=== PATIENT | male | born 1980 | race Caucasian/White ===

== ENCOUNTER 2017-04-04 07:27 | Inpatient (IN) | payer OTHER ==
[~2017-04-04] VITALS: Ht 182.9 cm; Wt 82.0 kg
[2017-04-04] VITALS (7 sets, daily range): BP systolic 112–126; BP diastolic 68–79; PULSE 53–63; RESP 16–22; TEMP 97–98.6; O2SAT 95–99
[~2017-04-04 07:27] MED LIST: BUDE3CAP5 PO; HYDR-3580 PO; MESA250 PO; NALT50 PO; PRED20 PO
[2017-04-04] MEDS ORDERED: IOHEXOL 350 MG/ML 10 ML VIAL (for RAD DIAG) IVCONTRAST ONE (07:28)
[2017-04-04] MEDS ORDERED: PRED20 PO (07:39)
[2017-04-04] MEDS ORDERED: ONDANSETRON HCL 4 MG/2 ML VIAL IVP ONE (08:30)
[2017-04-04] MEDS ORDERED: SODIUM CHLORIDE 0.9% FLUSH 10 ML FLUSH IV FLUSH PRN (08:30)
[2017-04-04] MEDS ORDERED: KETOROLAC TROMETHAMINE 30 MG/ML (IVP) VIAL IVP ONE (08:30)
[2017-04-04] MEDS ORDERED: SODIUM CHLOR 0.9% 1000 ML INJ 1,000 ML IV SCH (08:30)
[2017-04-04] MEDS ORDERED: MORPHINE SULFATE 4 MG/ML INJ IV PUSH ONE (08:30)
[2017-04-04 09:03] LABS: BASOPHIL % 0.4 % (0.0-2.0); EOSINOPHIL # 0.1 TH/MM3 (0-0.4); EOSINOPHIL % 1.3 % (0.0-4.0); HEMATOCRIT 42.7 % (39.0-51.0); HEMO FLAGS DIFF FINAL; LYMPH % 8.5 % (9.0-44.0); LYMPHOCYTE # 0.7 TH/MM3 (1.0-4.8); MEAN CELL VOLUME 87.7 FL (80.0-100.0); MEAN CORPUSCULAR HEMOGLOBIN 29.2 PG (27.0-34.0); MEAN CORPUSCULAR HGB CONC 33.2 % (32.0-36.0); MONO % 3.6 % (0.0-8.0); NEUT % 86.2 % (16.0-70.0); PLATELET COUNT 207 TH/MM3 (150-450); RED BLOOD COUNT 4.87 MIL/MM3 (4.50-5.90); WHITE BLOOD COUNT 8.1 TH/MM3 (4.0-11.0)
[2017-04-04] MEDS ORDERED: DIATRIZOATE MEGLUM/DIATRIZOATE SOD 9 ML CUP ONE (09:23)
[2017-04-04 09:30] LABS: ANION GAP 7 MEQ/L (5-15); AST (GOT) 12 U/L (15-37); BICARBONATE 25.9 MEQ/L (21.0-32.0); BLOOD UREA NITROGEN 19 MG/DL (7-18); CHLORIDE 105 MEQ/L (98-107); GLOMERULAR FILTRATION RATE 77 ML/MIN (>89); POTASSIUM 4.7 MEQ/L (3.5-5.1); SODIUM (NA) 138 MEQ/L (136-145)
[2017-04-04 09:31] LABS: ALT (GPT) 17 U/L (12-78)
[2017-04-04 09:33] LABS: ALKALINE PHOSPHATASE 70 U/L (45-117); TOTAL BILIRUBIN ADULT 0.5 MG/DL (0.2-1.0)
[2017-04-04 10:03] LABS: BLOOD, URINE NEG (NEG); GLUCOSE,URINE NEG (NEG); KETONE, URINE NEG (NEG); NITRITE,URINE NEG (NEG); URINE COLOR YELLOW (YELLW/STRAW)
[2017-04-04 10:06] LABS: COMMENT (UR) CULT NOT INDICATED; CULTURE IF INDICATED CULT NOT INDICATED
--- NOTE | 2017-04-04 11:44 | RADRPT ---
EXAM DATE/TIME: 04/04/2017 11:20 [place] COMPARISON: CT ABDOMEN & PELVIS W CONTRAST, December 09, 2011, 16:50. INDICATIONS : Abdominal pain . IV CONTRAST: 70 cc Omnipaque 350 (iohexol) IV ORAL CONTRAST: Partial prescribed oral contrast ingested. RADIATION DOSE: 7.10 CTDIvol (mGy) MEDICAL HISTORY : Crohn's disease. SURGICAL HISTORY : None. ENCOUNTER: Initial ACUITY: 2 days PAIN SCALE: 8/10 LOCATION: Umbilical TECHNIQUE: Volumetric scanning of the abdomen and pelvis was performed. Using automated exposure control and ad justment of the mA and/or kV according to patient size, radiation dose was kept as low as reasonably achievable to obtain optimal diagnostic quality images. DICOM format image data is available electro nically for review and comparison. FINDINGS: Liver, gallbladder, kidneys, spleen, pancreas, adrenal glands, stomach are unremarkable. The terminal ileum is markedly abnormal with marked circumferential bowel wall thickening extending over 6-7 cm. There is an abrupt changing caliber of the distal ileum on coronal image 36 with just proximal to the inflamed segment of bowel is a markedly dilated loop of ileum measuring up to 5-6 cm in maximal diam eter. Multiple dilated loops are seen proximal to this point. These findings would suggest a prominen t ileus versus partial small bowel obstruction. There is no free fluid. No adenopathy is seen. No fra ctures. Lung bases are clear. CONCLUSION: Abnormal 6-7 cm segment of distal small bowel at the level of the terminal ileum with marked bowel wa ll thickening and upstream bowel dilatation as above. This is consistent with a history of Crohn's d isease. Alexsander Wong MD on April 04, 2017 at 11:34 Board Certified Radiologist. This report was verified electronically.
[2017-04-04] MEDS ORDERED: methylPREDNISolone SOD SUCC 125 MG/2 ML VIAL IV PUSH ONE (12:00)
--- NOTE | 2017-04-04 12:35 | PD ---
HPI Chief Complaint: Abdominal Pain Time Seen by Provider: 07:45 Travel History International Travel<30 days: No Contact w/Intl Traveler<30days: No Traveled to known affect area: No History of Present Illness HPI 37-year-old male has history of Crohn's disease came in with history of abdominal pain on and off for past 2 weeks. Patient says that the first part of the first week his symptoms were frequent at which point he called the GI specialist Dr. Maxwell who prescribed him prednisone. However patient's symptoms subsided and hence he did not take the prednisone up until yesterday when his symptoms started again. He took the first dose of prednisone this morning but abdominal pain was severe and he decided to come to the emergency room. Patient says pain is colicky and sharp when it comes. It makes him double over and grab his stomach. No history of vomiting but patient has some loose frequent bowel movements. History of fever or chills. His vital signs are stable. As patient was talking to me he said his cramps came again and he grabbed his belly. [facility] Past Medical History Narrative Medical List of his past medical, surgical, social and family history reviewed from the nursing note. Depression: Yes Cancer: No Cardiovascular Problems: No Diabetes: No Diminished Hearing: No Endocrine: No Gastrointestinal Disorders: Yes (CROHNS) Glaucoma: No Genitourinary: No Hepatitis: No Hiatal Hernia: No Hypertension: No Musculoskeletal: No Neurologic: No Reproductive: No Respiratory: No Thyroid Disease: No Past Surgical History Other Surgery: Yes Social History Alcohol Use: Yes (RARELY) Tobacco Use: No Substance Use: No Allergies-Medications (Allergen,Severity, Reaction): Coded Allergies: No Known Allergies (Verified , 04/04/17) Comments No known drug allergies. Reported Meds & Prescriptions Reported Meds & Active Scripts Active Narrative Medication List of his home medications reviewed from the nursing note. Review of Systems Except as stated in HPI: all other systems reviewed are Neg Physical Exam Narrative GENERAL: Awake, alert, moderate distress SKIN: Focused skin assessment warm/dry. HEAD: Atraumatic. Normocephalic. EYES: Pupils equal and round. No scleral icterus. No injection or drainage. ENT: No nasal bleeding or discharge. Mucous membranes pink and moist. NECK: Trachea midline. No JVD. CARDIOVASCULAR: Regular rate and rhythm. No murmur appreciated. RESPIRATORY: No accessory muscle use. Clear to auscultation. Breath sounds equal bilaterally. GASTROINTESTINAL: Abdomen soft, generalized tenderness, nondistended. Hepatic and splenic margins not palpable. MUSCULOSKELETAL: No obvious deformities. No clubbing. No cyanosis. No edema. NEUROLOGICAL: Awake and alert. No obvious cranial nerve deficits. Motor grossly within normal limits. Normal speech. PSYCHIATRIC: Appropriate mood and affect; insight and judgment normal. Data Data Last Documented VS Vital Signs Date Time Temp Pulse Resp B/P (MAP) Pulse Ox O2 Delivery O2 Flow Rate FiO2 04/04/17 11:16 58 16 126/72 (90) 99 Room Air 04/04/17 07:30 98.6 Orders Orders Complete Blood Count With Diff (04/04/17 08:30) Comprehensive Metabolic Panel (04/04/17 08:30) Lipase (04/04/17 08:30) Urinalysis - C+S If Indicated (04/04/17 08:30) Ct Abd/Pel W Iv Contrast(Rout) (04/04/17 08:30) Iv Access Insert/Monitor (04/04/17 08:30) Ecg Monitoring (04/04/17 08:30) Oximetry (04/04/17 08:30) Morphine Inj (Morphine Inj) (04/04/17 08:30) Ondansetron Inj (Zofran Inj) (04/04/17 08:30) Sodium Chlor 0.9% 1000 Ml Inj (Ns 1000 M (04/04/17 08:30) Sodium Chloride 0.9% Flush (Ns Flush) (04/04/17 08:30) Ketorolac Inj (Toradol Inj) (04/04/17 08:30) Oral Contrast - Adult (04/04/17 08:37) Diatrizoate Liq ( Gastroview Liq) (04/04/17 09:23) Iohexol 350 Inj (Omnipaque 350 Inj) (04/04/17 07:28) Methylprednisolone So Succ Inj (Solumedr (04/04/17 12:00) Consult Gastroenterology (04/04/17 ) Admit Order (Ed Use Only) (04/04/17 12:19) Labs Laboratory Tests Test 04/04/17 08:20 04/04/17 09:45 White Blood Count 8.1 TH/MM3 Red Blood Count 4.87 MIL/MM3 Hemoglobin 14.2 GM/DL Hematocrit 42.7 % Mean Corpuscular Volume 87.7 FL Mean Corpuscular Hemoglobin 29.2 PG Mean Corpuscular Hemoglobin Concent 33.2 % Red Cell Distribution Width 13.0 % Platelet Count 207 TH/MM3 Mean Platelet Volume 9.0 FL Neutrophils (%) (Auto) 86.2 % Lymphocytes (%) (Auto) 8.5 % Monocytes (%) (Auto) 3.6 % Eosinophils (%) (Auto) 1.3 % Basophils (%) (Auto) 0.4 % Neutrophils # (Auto) 7.0 TH/MM3 Lymphocytes # (Auto) 0.7 TH/MM3 Monocytes # (Auto) 0.3 TH/MM3 Eosinophils # (Auto) 0.1 TH/MM3 Basophils # (Auto) 0.0 TH/MM3 CBC Comment DIFF FINAL Differential Comment Blood Urea Nitrogen 19 MG/DL Creatinine 1.09 MG/DL Random Glucose 96 MG/DL Total Protein 7.4 GM/DL Albumin 3.6 GM/DL Calcium Level 9.2 MG/DL Alkaline Phosphatase 70 U/L Aspartate Amino Transf (AST/SGOT) 12 U/L Alanine Aminotransferase (ALT/SGPT) 17 U/L Total Bilirubin 0.5 MG/DL Sodium Level 138 MEQ/L Potassium Level 4.7 MEQ/L Chloride Level 105 MEQ/L Carbon Dioxide Level 25.9 MEQ/L Anion Gap 7 MEQ/L Estimat Glomerular Filtration Rate 77 ML/MIN Lipase 357 U/L Urine Color YELLOW Urine Turbidity CLEAR Urine pH 6.0 Urine Specific [place] 1.024 Urine Protein NEG mg/dL Urine Glucose (UA) NEG mg/dL Urine Ketones NEG mg/dL Urine Occult Blood NEG Urine Nitrite NEG Urine Bilirubin NEG Urine Urobilinogen LESS THAN 2.0 MG/DL Urine Leukocyte Esterase NEG Urine WBC LESS THAN 1 /hpf Microscopic Urinalysis Comment CULT NOT INDICATED MDM Medical Decision Making Medical Screen Exam Complete: Yes Emergency Medical Condition: Yes Medical Record Reviewed: Yes Differential Diagnosis Acute Crohn's flareup, colitis, acute gastroenteritis Narrative Course 12 PM blood test results of back and within acceptable limits. However the CAT scan of his abdomen shows an inflamed and thickened bowel loop at the terminal ileum level. The bowel loop proximal to it is significantly distended. I discussed with the GI specialist Dr. Aparicio who is on and he agreed with a bolus dose of Solu-Medrol and admitting the patient. I discussed the case with the hospitalist was accepted the case. Patient was informed about his CAT scan result and the admission and he understands. Procedures EKG Prior to Arrival: No Physician Communication Physician Communication Dr. Aparicio, Dr. Warner Diagnosis Primary Impression: Crohn's disease involving terminal ileum Additional Impression: Partial bowel obstruction Admitting Information Admitting Physician Requests: Admit Scripts Prednisone (Prednisone) 20 Mg Tab 40 MG PO DAILY for crohn's flare, #40 TAB 0 Refills Prov: Anuradha Lugo 04/07/17 Dicyclomine (Dicyclomine) 20 Mg Tab 20 MG PO TID Y for CRAMPING PAIN, #30 TAB Prov: Anuradha Lugo 04/07/17 Alma King MD Apr 04, 2017 12:35
--- NOTE | 2017-04-04 13:42 | PD.CONS ---
HPI History of Present Illness This is a 37 year old male with a history of Crohns, diagnosed in January of 2012. He has been on asacol, pentasa, and entocort in the past, but reports that he traveled to see a homeopathic physician in [place] who did testing and identified foods that seemed to set his flares off. He has been following this diet and eating mostly home cooked meals except when he travels out of town and reports that he was in remission for three years. However, he has had multiple hospitalizations and ER visits this year for flares and reports that these usually occur after eating certain foods or after going out to eat. He was last seen in October of 2016 at [facility]. For the past 4 years he has only taking low dose naltrexone and steroid tapers when he has flares. At baseline, 2-3 bowel movements a day. He went out of town about 2 weeks ago and was eating out more than usual. He came back from [place] and was having intermittent abdominal pain. He woke up at 230 this morning with abdominal distention and was unable to get comfortable. This then transitioned into waves of pain- sharp/burning type pain that will last 10-15 seconds at a time and then go away and comes back shortly after. He has associated nausea without vomiting. He passed one stool this morning around 3:30am- formed with a small amount of blood when he wiped himself. His last EGD/Colonoscopy ()----> nodular mucosa in duodenal bulbbiopsy few small nodules and duodenum, biopsy. Gastritis in the antrum biopsy. Esophagitis in the distal esophagus/ Schatzki's ring, biopsy. Retroflex views revealed a small hiatal hernia. On the Colonoscopy (05/27/16)---> colon looked normal, some semisolid stool, mostly on right side, aggressive washing, terminal ileum intubated, ulcer clean base, stricture biopsies taken. Random biopsies from cecum, ascending, transverse, descending, sigmoid, rectum. Retroflexed views revealed internal grade 1 hemorrhoids. A digital rectal exam was done and revealed small internal hemorrhoids. He states that he does not want to go on medications for IBD and does not want antibiotics unless absolutely necessary. (rBinda Sexton [facility] Past Medical History Crohn's disease Past Surgical History Bilateral ACL repair EGD/Colonoscopy (Brinda Sexton) Coded Allergies: No Known Allergies (Verified , 04/04/17) Medications Allergies Coded Allergies Type Severity Reaction Last Updated Verified No Known Allergies 04/04/17 Yes Active Scripts Medications Dose Route/Sig Max Daily Dose Days Date Category Prednisone 20 Mg Tab 40 Mg PO DIRECTED 04/04/17 Reported Family History No family history of inflammatory bowl disease. Social History No smoke, rare etoh, medical marijuana (Brinda Sexton) Review of Systems Constitutional: COMPLAINS OF: Weight loss, DENIES: Fatigue Respiratory: DENIES: Cough Cardiovascular: DENIES: Chest pain Gastrointestinal: COMPLAINS OF: Abdominal pain, Nausea, DENIES: Black stools, Bloody stools, Constipation, Diarrhea, Vomiting, Swelling of Abdomen, Heartburn , Hematemesis Musculoskeletal: DENIES: Joint pain, Muscle aches, Back pain Hematologic/lymphatic: DENIES: Bruising Neurologic: DENIES: Headache Psychiatric: DENIES: Confusion (Brinda Sexton) GI Exam Vitals I&O Vital Signs Date Time Temp Pulse Resp B/P (MAP) Pulse Ox O2 Delivery O2 Flow Rate FiO2 04/04/17 11:16 58 16 126/72 (90) 99 Room Air 04/04/17 10:40 18 04/04/17 09:13 18 04/04/17 08:41 58 16 120/77 (91) 99 Room Air 04/04/17 07:30 98.6 63 22 124/79 (94) 95 Room Air I/O 04/03/17 04/03/17 04/03/17 04/04/17 04/04/17 04/04/17 07:00 15:00 23:00 07:00 15:00 23:00 Intake Total 1000 ml Balance 1000 ml Intake IV Total [address] Scan abdomen and pelvis with iv contrast (04/04/17)---> abnormal 6-7 segment of distal small bowel at the level of the terminal ileum with marked bowel wall thickening and upstream bowel dilatation as above. This is consistent with a history of Crohn's disease. Laboratory Test 04/04/17 08:20 04/04/17 09:45 White Blood Count 8.1 TH/MM3 Red Blood Count 4.87 MIL/MM3 Hemoglobin 14.2 GM/DL Hematocrit 42.7 % Mean Corpuscular Volume 87.7 FL Mean Corpuscular Hemoglobin 29.2 PG Mean Corpuscular Hemoglobin Concent 33.2 % Red Cell Distribution Width 13.0 % Platelet Count 207 TH/MM3 Mean Platelet Volume 9.0 FL Neutrophils (%) (Auto) 86.2 % Lymphocytes (%) (Auto) 8.5 % Monocytes (%) (Auto) 3.6 % Eosinophils (%) (Auto) 1.3 % Basophils (%) (Auto) 0.4 % Neutrophils # (Auto) 7.0 TH/MM3 Lymphocytes # (Auto) 0.7 TH/MM3 Monocytes # (Auto) 0.3 TH/MM3 Eosinophils # (Auto) 0.1 TH/MM3 Basophils # (Auto) 0.0 TH/MM3 CBC Comment DIFF FINAL Differential Comment Blood Urea Nitrogen 19 MG/DL Creatinine 1.09 MG/DL Random Glucose 96 MG/DL Total Protein 7.4 GM/DL Albumin 3.6 GM/DL Calcium Level 9.2 MG/DL Alkaline Phosphatase 70 U/L Aspartate Amino Transf (AST/SGOT) 12 U/L Alanine Aminotransferase (ALT/SGPT) 17 U/L Total Bilirubin 0.5 MG/DL Sodium Level 138 MEQ/L Potassium Level 4.7 MEQ/L Chloride Level 105 MEQ/L Carbon Dioxide Level 25.9 MEQ/L Anion Gap 7 MEQ/L Estimat Glomerular Filtration Rate 77 ML/MIN Lipase 357 U/L Urine Color YELLOW Urine Turbidity CLEAR Urine pH 6.0 Urine Specific [place] 1.024 Urine Protein NEG mg/dL Urine Glucose (UA) NEG mg/dL Urine Ketones NEG mg/dL Urine Occult Blood NEG Urine Nitrite NEG Urine Bilirubin NEG Urine Urobilinogen LESS THAN 2.0 MG/DL Urine Leukocyte Esterase NEG Urine WBC LESS THAN 1 /hpf Microscopic Urinalysis Comment CULT NOT INDICATED Physical Examination HEENT: Normocephalic; atraumatic; no jaundice. CHEST: CTA CARDIAC: RRR. ABDOMEN: Soft, nondistended, nontender; no hepatosplenomegaly; bowel sounds are present in all four quadrants. EXTREMITIES: No clubbing, cyanosis, or edema. SKIN: Normal; no rash; no jaundice. MACHINE SET UP TECHNICIAN: No focal deficits; alert and oriented times three. (Brinda Sexton) Assessment and Plan Plan ASSESSMENT: - Crohns Exacerbation. Dx 2011. He was initially on asacol, pentasa, and entocort, but has only been on low dose naltrexone and steroid tapers (when he had flares) for past 4 years. Flares seem to be aggravated by going out to eat/certain foods. He recently traveled to [place] and was eating out and came home and started having discomfort. Woke up with severe abdominal pain last night. No diarrhea. Small amount of blood when he wipes himself. Nausea, no vomiting. No fevers /chills. EGD/Colonoscopy (05/27/16)----> nodular mucosa in duodenal bulbbiopsy few small nodules and duodenum, biopsy. Gastritis in the antrum biopsy. Esophagitis in the distal esophagus/Schatzki's ring, biopsy. Retroflex views revealed a small hiatal hernia. On the Colonoscopy (05/27/16)---> colon looked normal, some semisolid stool, mostly on right side, aggressive washing, terminal ileum intubated, ulcer clean base , stricture biopsies taken. Random biopsies from cecum, ascending, transverse, descending, sigmoid, rectum. Retroflexed views revealed internal grade 1 hemorrhoids. A digital rectal exam was done and revealed small internal hemorrhoids. He states that he does not want to go on medications for IBD and does not want antibiotics unless absolutely necessary. CT Scan abdomen and pelvis with iv contrast (04/04/17)---> abnormal 6-7 segment of distal small bowel at the level of the terminal ileum with marked bowel wall thickening and upstream bowel dilatation as above. This is consistent with a history of Crohn's disease. He does not want to be started on any medications for Crohn's other than steroids, including antibiotics unless absolutely necessary. Clear liquids. Steroids. IVF. PLAN: - Clear liquids - Cont. Solumedrol - IVF - CBC, BMP in am - Stool studies - Pt does not want antibiotics - Pt soes not want other meds for IBD - Supportive care - Pt seen and examined by Dr. Aparicio and myself and this note is written on his behalf (Brinda Sexton) Physician Comments Seen and examined, plan as above. Conservative treatment for now for Crohn's exacerbation. Further recommendations to follow. (Joan Aparicio MD) Brinda Sexton Apr 04, 2017 13:42 Joan Aparicio MD Apr 04, 2017 16:00
--- NOTE | 2017-04-04 13:47 | HHI.HP ---
HPI Service [facility] Hospitalists Primary Care Physician Shelby Barajas MD (Vipin) Admission Diagnosis abdominal pain, Crohn's disease flareup, partial bowel obstruction Chief Complaint: Abdominal pain Travel History International Travel<30 Days: No Contact w/Intl Traveler <30 Da: No Traveled to Known Affected Are: No History of Present Illness Mr. De Leon is a pleasant 37 y/o WM with Crohn's disease. He was diagnosed in 2011. In the past he has been on Pentasa, Asacol and Entocort as well as prednisone at various times for his Crohn's but over the last 3 years has been controlling his symptoms with his diet and supplements and had been symptom free up until March 2016 he started having symptoms again. He feels that his diet is a big factor in controlling his symptoms. Pt was hospitalized in October 2016 at for Crohn's flare and was treated with steroids at that time with improvement. He reports that for the last few weeks he has had some intermittent abdominal pain and loose stools which has been waxing and waning. He has noted some bloody stools as well. Patient says that when his symptoms first began a few weeks ago he called the Dr. Maxwell's office who prescribed him prednisone. However patient's symptoms subsided and he did not take the prednisone. For the last 2-3 days he had been feeling well overall. Then around 2:30AM this morning he woke up with severe right sided abdominal pain and some intermittent nausea. He took the first dose of prednisone this morning but the abdominal pain was severe and he decided to come to the ED for further evaluation. In the ED CT scan of the abd/pelvis revealed an abnormal 6-7cm segment of distal small bowel at the level of the terminal ileum with marked bowel wall thickening and upstream bowel distension. Pt was given a dose of Solu -Medrol 125mg in the ED and some pain medication and his pain is controlled currently. Denies any fevers/chills, vomiting, melena, weight changes, chest pain, SOB or palpitations. Review of Systems Constitutional: DENIES: Fever, Chills Respiratory: DENIES: Cough, Shortness of breath Cardiovascular: DENIES: Chest pain, Palpitations, Lower Extremity Edema Gastrointestinal: COMPLAINS OF: Abdominal pain, Bloody stools, Diarrhea, Nausea , DENIES: Constipation, Vomiting Genitourinary: DENIES: Hematuria, Dysuria Musculoskeletal: DENIES: Back pain Integumentary: DENIES: Rash Neurologic: DENIES: Headache Psychiatric: DENIES: Confusion Past Family Social History Past Medical History Crohn's disease Past Surgical History EGD/Colonoscopy (09/09/11)-----> severe gastritis in the antrum and body with multiple small nasogastric tube trauma but very superficial, nodular mucosa in the duodenal bulb and some duodenitis in the first portion of the duodenum, rest of endoscopy normal, stool throughout the colon, but colon looked normal, terminal ileum multiple ulcerations suggesting terminal ileitis versus Crohn's disease. Pathology revealed peptic duodenitis, mild chronic gastritis, negative for Helicobacter, severe chronic active ileitis with features of ulceration, ileocecal valve with colonic mucosa with a prominent lymphoid nodule, right and left colonic mucosa with vascular congestion. Bilateral ACL repair Reported Medications Prednisone 40 Mg PO DIRECTED Allergies: Coded Allergies: No Known Allergies (Verified , 04/04/17) Family History No family hx of IBD or colon cancer Social History Denies any tobacco use Rare alcohol use Darlyn any illicit drug use Physical Exam Vital Signs Vital Signs Date Time Temp Pulse Resp B/P (MAP) Pulse Ox O2 Delivery O2 Flow Rate FiO2 04/04/17 11:16 58 16 126/72 (90) 99 Room Air 04/04/17 10:40 18 04/04/17 09:13 18 04/04/17 08:41 58 16 120/77 (91) 99 Room Air 04/04/17 07:30 98.6 63 22 124/79 (94) 95 Room Air Physical Exam GENERAL: This is a well-nourished, well-developed patient, in no apparent distress. HEENT: Atraumatic. Normocephalic. No temporal or scalp tenderness. No scleral icterus. Airway patent. NECK: Trachea midline, supple, nontender. CARDIO: Regular. RESP: CTA bilaterally. No wheezes, rales, or rhonchi. ABD: +BS, soft, non-tender, nondistended. No hepato-splenomegaly, or palpable masses. No guarding. EXT: Extremities without clubbing, cyanosis, or edema. NEURO: Awake and alert. Motor and sensory grossly within normal limits. Normal speech. Laboratory Laboratory Tests Test 04/04/17 08:20 04/04/17 09:45 White Blood Count 8.1 Red Blood Count 4.87 Hemoglobin 14.2 Hematocrit 42.7 Mean Corpuscular Volume 87.7 Mean Corpuscular Hemoglobin 29.2 Mean Corpuscular Hemoglobin Concent 33.2 Red Cell Distribution Width 13.0 Platelet Count 207 Mean Platelet Volume 9.0 Neutrophils (%) (Auto) 86.2 Lymphocytes (%) (Auto) 8.5 Monocytes (%) (Auto) 3.6 Eosinophils (%) (Auto) 1.3 Basophils (%) (Auto) 0.4 Neutrophils # (Auto) 7.0 Lymphocytes # (Auto) 0.7 Monocytes # (Auto) 0.3 Eosinophils # (Auto) 0.1 Basophils # (Auto) 0.0 CBC Comment DIFF FINAL Differential Comment Blood Urea Nitrogen 19 Creatinine 1.09 Random Glucose 96 Total Protein 7.4 Albumin 3.6 Calcium Level 9.2 Alkaline Phosphatase 70 Aspartate Amino Transf (AST/SGOT) 12 Alanine Aminotransferase (ALT/SGPT) 17 Total Bilirubin 0.5 Sodium Level 138 Potassium Level 4.7 Chloride Level 105 Carbon Dioxide Level 25.9 Anion Gap 7 Estimat Glomerular Filtration Rate 77 Lipase 357 Urine Color YELLOW Urine Turbidity CLEAR Urine pH 6.0 Urine Specific [place] 1.024 Urine Protein NEG Urine Glucose (UA) NEG Urine Ketones NEG Urine Occult Blood NEG Urine Nitrite NEG Urine Bilirubin NEG Urine Urobilinogen LESS THAN 2.0 Urine Leukocyte Esterase NEG Urine WBC LESS THAN 1 Microscopic Urinalysis Comment CULT NOT INDICATED Result Diagram: 04/04/17 0820 04/04/[address] Abd/pelvis (04/04/17): - Abnormal 6-7cm segment of distal small bowel at the level of the terminal ileum with marked bowel wall thickening and upstream bowel distension Septic Shock Reassessment Heart: Regular rate and rhythm Lungs: Clear Skin: Warm Caprini VTE Risk Assessment Caprini VTE Risk Assessment: No/Low Risk (score <= 1) Caprini Risk Assessment Model Point Value = 1 Point Value = 2 Point Value = 3 Point Value = 5 Age 41-60 Minor surgery BMI > 25 kg/m2 Swollen legs Varicose veins or History of unexplained or recurrent spontaneous Oral contraceptives or hormone replacement Sepsis (< 1 month) Serious lung disease, including pneumonia (< 1 month) Abnormal pulmonary function Acute myocardial infarction Congestive heart failure (< 1 month) History of inflammatory bowel disease Medical patient at bed rest Age 61-74 Arthroscopic surgery Major open surgery (> 45 min) Laparoscopic surgery (> 45 min) Malignancy Confined to bed (> 72 hours) Immobilizing plaster cast Central venous access Age >= 75 History of VTE Family history of VTE Factor V Leiden Prothrombin [id number] Lupus anticoagulant Anticardiolipin antibodies Elevated serum homocysteine Heparin-induced thrombocytopenia Other congenital or acquired thrombophilia Stroke (< 1 month) Elective arthroplasty Hip, pelvis, or leg fracture Acute spinal cord injury (< 1 month) Prophylaxis Regimen Total Risk Factor Score Risk Level Prophylaxis Regimen 0-1 Low Early ambulation 2 Moderate Order ONE of the following: *Sequential Compression Device (SCD) *Heparin 5000 units SQ BID 3-4 Higher Order ONE of the following medications: *Heparin 5000 units SQ TID *Enoxaparin/Lovenox 40 mg SQ daily (WT < 150 kg, CrCl > 30 mL/min) *Enoxaparin/Lovenox 30 mg SQ daily (WT < 150 kg, CrCl > 10-29 mL/min) *Enoxaparin/Lovenox 30 mg SQ BID (WT < 150 kg, CrCl > 30 mL/min) AND/OR *Sequential Compression Device (SCD) 5 or more Highest Order ONE of the following medications: *Heparin 5000 units SQ TID (Preferred with Epidurals) *Enoxaparin/Lovenox 40 mg SQ daily (WT < 150 kg, CrCl > 30 mL/min) *Enoxaparin/Lovenox 30 mg SQ daily (WT < 150 kg, CrCl > 10-29 mL/min) *Enoxaparin/Lovenox 30 mg SQ BID (WT < 150 kg, CrCl > 30 mL/min) AND *Sequential Compression Device (SCD) Assessment and Plan Problem List: (1) Crohn's disease involving terminal ileum ICD Codes: K50.90 - Crohn's disease, unspecified, without complications Status: Acute Plan: - Pt is a 37 y/o WM with Crohn's disease. He was diagnosed in 2011. In the past he has been on Pentasa, Asacol and Entocort as well as prednisone at various times for his Crohn's but over the last 3 years has been controlling his symptoms with his diet and supplements and had been symptom free up until March 2016 he started having symptoms again. - For the last few weeks he has had some intermittent abdominal pain and loose stools and some bloody stools as well. - Around 2:30AM on the day of admission he woke up with severe right sided abdominal pain and some intermittent nausea. - In the ED CT scan of the abd/pelvis revealed an abnormal 6-7cm segment of distal small bowel at the level of the terminal ileum with marked bowel wall thickening and upstream bowel distension. - Pt was given a dose of Solu-Medrol 125mg in the ED and some pain medication and his pain is controlled currently. - Cont. Solu-Medrol 60mg Q12H - Keep pt NPO for now as his CT scan appears to have evidence of ileus vs. partial SBO - KUB in AM - IVF - Pain control PRN - GI consultation - Supportive care - DVT prophylaxis with SCDs Physician Certification 2 Midnight Certification Type: Admission for Inpatient Services Order for Inpatient Services The services are ordered in accordance with Medicare regulations or non- Medicare payer requirements, as applicable. In the case of services not specified as inpatient-only, they are appropriately provided as inpatient services in accordance with the 2-midnight benchmark. Estimated LOS (days): 3 3 days is the estimated time the patient will need to remain in the hospital, assuming treatment plan goals are met and no additional complications. Post-Hospital Plan: Home Anuradha Lugo Apr 04, 2017 13:47
[2017-04-04] MEDS ORDERED: ONDANSETRON HCL 4 MG/2 ML VIAL IV PRN (14:15)
[2017-04-04] MEDS ORDERED: ACETAMINOPHEN 325 MG TAB PO PRN (14:15)
[2017-04-04] MEDS: SODIUM CHLOR 0.9% 1000 ML INJ 1,000 ML IV SCH (15:17)
--- NOTE | 2017-04-04 15:27 | RADRPT ---
EXAM DATE/TIME: 04/04/2017 14:53 [facility] COMPARISON: No previous studies available for comparison. INDICATIONS : Ileus. MEDICAL HISTORY : Crohn's disease. 5 years. SURGICAL HISTORY : None. ENCOUNTER: Initial ACUITY: 1 day PAIN SCORE: 5/10 LOCATION: Bilateral Abdomen FINDINGS: There is some contrast within dilated small bowel loops and a right lower quadrant narrowed loop of d istal bowel consistent area of abnormal duodenum on the CT scan. Contrast is present within the bilat eral intrarenal collecting systems and urinary bladder. Contrast has not yet passed into the colon. CONCLUSION: Abnormal dilated small bowel and inflammatory bowel wall thickening right lower quadrant. Alexsander Wong MD on April 04, 2017 at 15:24 Board Certified Radiologist. This report was verified electronically.
[2017-04-04] MEDS: MORPHINE SULFATE 4 MG/ML INJ IV PUSH PRN ×2 (16:38→19:16)
[2017-04-04] MEDS: methylPREDNISolone SOD SUCC 125 MG/2 ML VIAL IV PUSH SCH (18:42)
[2017-04-05] VITALS: BP 126/83; PULSE 64; RESP 17; TEMP 96; O2SAT 98
[2017-04-05] MEDS: SODIUM CHLOR 0.9% 1000 ML INJ 1,000 ML IV SCH ×3 (00:15→20:15)
[2017-04-05] MEDS: MORPHINE SULFATE 4 MG/ML INJ IV PUSH PRN ×2 (00:17→16:07)
[2017-04-05] MEDS: methylPREDNISolone SOD SUCC 125 MG/2 ML VIAL IV PUSH SCH ×2 (06:12→18:47)
[2017-04-05 06:42] LABS: AUTOMATED NEUTROPHIL # 4.4 TH/MM3 (1.8-7.7); BASOPHIL % 0.1 % (0.0-2.0); HEMATOCRIT 39.5 % (39.0-51.0); HEMO FLAGS DIFF FINAL; LYMPH % 16.1 % (9.0-44.0); LYMPHOCYTE # 0.9 TH/MM3 (1.0-4.8); MEAN CELL VOLUME 88.4 FL (80.0-100.0); MEAN CORPUSCULAR HEMOGLOBIN 29.2 PG (27.0-34.0); MONO % 8.5 % (0.0-8.0); NEUT % 75.3 % (16.0-70.0); PLATELET COUNT 180 TH/MM3 (150-450); RED BLOOD COUNT 4.47 MIL/MM3 (4.50-5.90); RED CELL DISTRIBUTION WIDTH 13.1 % (11.6-17.2); WHITE BLOOD COUNT 5.8 TH/MM3 (4.0-11.0)
[2017-04-05 07:08] LABS: BICARBONATE 26.6 MEQ/L (21.0-32.0); POTASSIUM 4.1 MEQ/L (3.5-5.1)
[2017-04-05 08:00] VITALS: BP 117/64; PULSE 59; RESP 17; TEMP 97.7; O2SAT 98
--- NOTE | 2017-04-05 10:41 | HHI.PR ---
Subjective Remarks Pt reports less abd pain today He is passing gas but no BM since admission Objective Vitals Vital Signs Date Time Temp Pulse Resp B/P (MAP) Pulse Ox O2 Delivery O2 Flow Rate FiO2 04/05/17 08:00 97.7 59 17 117/64 (81) 98 04/05/17 00:00 96.0 64 17 126/83 (97) 98 04/04/17 20:00 97.0 56 17 112/73 (86) 97 04/04/17 18:43 97.4 54 17 119/69 (86) 96 04/04/17 17:47 56 18 117/68 (84) 98 04/04/17 16:55 18 04/04/17 15:00 53 18 123/77 (92) 98 Room Air 04/04/17 11:16 58 16 126/72 (90) 99 Room Air Result Diagram: 04/05/17 0608 04/05/17 0608 Other Results Laboratory Tests Test 04/04/17 08:20 04/04/17 09:45 04/05/17 06:08 White Blood Count 8.1 TH/MM3 5.8 TH/MM3 Red Blood Count 4.87 MIL/MM3 4.47 MIL/MM3 Hemoglobin 14.2 GM/DL 13.0 GM/DL Hematocrit 42.7 % 39.5 % Mean Corpuscular Volume 87.7 FL 88.4 FL Mean Corpuscular Hemoglobin 29.2 PG 29.2 PG Mean Corpuscular Hemoglobin Concent 33.2 % 33.0 % Red Cell Distribution Width 13.0 % 13.1 % Platelet Count 207 TH/MM3 180 TH/MM3 Mean Platelet Volume 9.0 FL 9.7 FL Neutrophils (%) (Auto) 86.2 % 75.3 % Lymphocytes (%) (Auto) 8.5 % 16.1 % Monocytes (%) (Auto) 3.6 % 8.5 % Eosinophils (%) (Auto) 1.3 % 0.0 % Basophils (%) (Auto) 0.4 % 0.1 % Neutrophils # (Auto) 7.0 TH/MM3 4.4 TH/MM3 Lymphocytes # (Auto) 0.7 TH/MM3 0.9 TH/MM3 Monocytes # (Auto) 0.3 TH/MM3 0.5 TH/MM3 Eosinophils # (Auto) 0.1 TH/MM3 0.0 TH/MM3 Basophils # (Auto) 0.0 TH/MM3 0.0 TH/MM3 CBC Comment DIFF FINAL DIFF FINAL Differential Comment Blood Urea Nitrogen 19 MG/DL 17 MG/DL Creatinine 1.09 MG/DL 0.98 MG/DL Random Glucose 96 MG/DL 117 MG/DL Total Protein 7.4 GM/DL Albumin 3.6 GM/DL Calcium Level 9.2 MG/DL 8.3 MG/DL Alkaline Phosphatase 70 U/L Aspartate Amino Transf (AST/SGOT) 12 U/L Alanine Aminotransferase (ALT/SGPT) 17 U/L Total Bilirubin 0.5 MG/DL Sodium Level 138 MEQ/L 139 MEQ/L Potassium Level 4.7 MEQ/L 4.1 MEQ/L Chloride Level 105 MEQ/L 106 MEQ/L Carbon Dioxide Level 25.9 MEQ/L 26.6 MEQ/L Anion Gap 7 MEQ/L 6 MEQ/L Estimat Glomerular Filtration Rate 77 ML/MIN 87 ML/MIN Lipase 357 U/L Urine Color YELLOW Urine Turbidity CLEAR Urine pH 6.0 Urine Specific [place] 1.024 Urine Protein NEG mg/dL Urine Glucose (UA) NEG mg/dL Urine Ketones NEG mg/dL Urine Occult Blood NEG Urine Nitrite NEG Urine Bilirubin NEG Urine Urobilinogen LESS THAN 2.0 MG/DL Urine Leukocyte Esterase NEG Urine WBC LESS THAN 1 /hpf Microscopic Urinalysis Comment CULT NOT INDICATED Imaging CT Abd/pelvis (04/04/17): - Abnormal 6-7cm segment of distal small bowel at the level of the terminal ileum with marked bowel wall thickening and upstream bowel distension Objective Remarks General: NAD, AAOx3 Chest: CTA Cardiac: Regular Abd: +BS, soft ND/NT Ext: no edema A/P Problem List: (1) Crohn's disease involving terminal ileum ICD Codes: K50.90 - Crohn's disease, unspecified, without complications Status: Acute Plan: - Pt is a 37 y/o WM with Crohn's disease. He was diagnosed in 2011. In the past he has been on Pentasa, Asacol and Entocort as well as prednisone at various times for his Crohn's but over the last 3 years has been controlling his symptoms with his diet and supplements and had been symptom free up until March 2016 he started having symptoms again. - For the last few weeks he has had some intermittent abdominal pain and loose stools and some bloody stools as well. - Around 2:30AM on the day of admission he woke up with severe right sided abdominal pain and some intermittent nausea. - In the ED CT scan of the abd/pelvis revealed an abnormal 6-7cm segment of distal small bowel at the level of the terminal ileum with marked bowel wall thickening and upstream bowel distension. - Pt was given a dose of Solu-Medrol 125mg in the ED and some pain medication and his pain is controlled currently. - Cont. Solu-Medrol 60mg Q12H - Clear liquid diet - Stool studies ordered by GI - IVF - Pain control PRN - Supportive care - DVT prophylaxis with SCDs Assessment and Plan Patient examined. Assessment and plan formulated with Anuradha Lugo PA-C. I agree with the above. Crohn's flare/ileitis and probably partial sbo. improved with solumedrol. ivf.. prn pain control. GI following advance to liquids. Anuradha Lugo Apr 05, 2017 10:41 Anish Valdovinos MD Apr 05, 2017 12:05
[2017-04-05 12:00] VITALS: BP 125/58; PULSE 49; RESP 18; TEMP 97.2; O2SAT 97
[2017-04-05 16:00] VITALS: BP 135/75; PULSE 57; RESP 17; TEMP 97.9; O2SAT 98
--- NOTE | 2017-04-05 16:04 | HHI.GIFU ---
Subjective Remarks Pt OOB standing to relieve bloating. SAys overall there is improvement in discomfort but he is having some now. Had scant solid BM. Would like diet advanced, he cannot eat the clear liquid diet here b/c he is very strict with sugars and what he eats. (Traci Cummins) Objective Vitals I&O Vital Signs Date Time Temp Pulse Resp B/P (MAP) Pulse Ox O2 Delivery O2 Flow Rate FiO2 04/05/17 12:00 97.2 49 18 125/58 (80) 97 04/05/17 08:00 97.7 59 17 117/64 (81) 98 04/05/17 00:00 96.0 64 17 126/83 (97) 98 04/04/17 20:00 97.0 56 17 112/73 (86) 97 04/04/17 18:43 97.4 54 17 119/69 (86) 96 04/04/17 17:47 56 18 117/68 (84) 98 04/04/17 16:55 18 I/O 04/04/17 04/04/17 04/04/17 04/05/17 04/05/17 04/05/17 06:59 14:59 22:59 06:59 14:59 22:59 Intake Total 1000 ml 395 ml 400 ml Balance 1000 ml 395 ml 400 ml Intake Oral 0 ml 0 ml IV Total 1000 ml 395 ml 400 ml # Voids 1 2 Laboratory Laboratory Tests Test 04/05/17 06:08 White Blood Count 5.8 Red Blood Count 4.47 Hemoglobin 13.0 Hematocrit 39.5 Mean Corpuscular Volume 88.4 Mean Corpuscular Hemoglobin 29.2 Mean Corpuscular Hemoglobin Concent 33.0 Red Cell Distribution Width 13.1 Platelet Count 180 Mean Platelet Volume 9.7 Neutrophils (%) (Auto) 75.3 Lymphocytes (%) (Auto) 16.1 Monocytes (%) (Auto) 8.5 Eosinophils (%) (Auto) 0.0 Basophils (%) (Auto) 0.1 Neutrophils # (Auto) 4.4 Lymphocytes # (Auto) 0.9 Monocytes # (Auto) 0.5 Eosinophils # (Auto) 0.0 Basophils # (Auto) 0.0 CBC Comment DIFF FINAL Differential Comment Blood Urea Nitrogen 17 Creatinine 0.98 Random Glucose 117 Calcium Level 8.3 Sodium Level 139 Potassium Level 4.1 Chloride Level 106 Carbon Dioxide Level 26.6 Anion Gap 6 Estimat Glomerular Filtration Rate 87 Date/Time Source Procedure Growth Status 04/05/17 12:30 Stool Stool Cryptosporidium Exam Pending Received 04/05/17 12:30 Stool Stool Stool Pus ([facility]ILMA) Pending Received 04/05/17 12:30 Stool Stool Giardia Antigen ([facility]ILMA) Pending Received Imaging Last Impressions Abdomen/Pelvis CT 04/04/17 0830 Signed Impressions: Service Date/Time: Tuesday, April 04, 2017 11:20 - CONCLUSION: Abnormal 6-7 cm segment of distal small bowel at the level of the terminal ileum with marked bowel wall thickening and upstream bowel dilatation as above. This is consistent with a history of Crohn's disease. Alexsander Wong MD Abdomen X-Ray 04/04/17 0000 Signed Impressions: Service Date/Time: Tuesday, April 04, 2017 14:53 - CONCLUSION: Abnormal dilated small bowel and inflammatory bowel wall thickening right lower quadrant. Alexsander Wong MD Physical Exam HEENT: PERRL; normocephalic; atraumatic; no jaundice. CHEST: CTA CARDIAC: RRR ABDOMEN: Soft, mildly distended, mild diffuse TTP; no hepatosplenomegaly; bowel sounds are present in all four quadrants. EXTREMITIES: No clubbing, cyanosis, or edema. SKIN: Normal; no rash; no jaundice. 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 (Traci Cummins [facility]) Assessment and Plan Plan ASSESSMENT: - Crohns Exacerbation. Dx 2011. He was initially on asacol, pentasa, and entocort, but has only been on low dose naltrexone and steroid tapers (when he had flares) for past 4 years. Flares seem to be aggravated by going out to eat/certain foods. He recently traveled to [place] and was eating out and came home and started having discomfort. Woke up with severe abdominal pain. No diarrhea. Small amount of blood when he wipes himself. Nausea, no vomiting. No fevers /chills. EGD/Colonoscopy (05/27/16)----> nodular mucosa in duodenal bulbbiopsy few small nodules and duodenum, biopsy. Gastritis in the antrum biopsy. Esophagitis in the distal esophagus/Schatzki's ring, biopsy. Retroflex views revealed a small hiatal hernia. On the Colonoscopy (05/27/16)---> colon looked normal, some semisolid stool, mostly on right side, aggressive washing, terminal ileum intubated, ulcer clean base , stricture biopsies taken. Random biopsies from cecum, ascending, transverse, descending, sigmoid, rectum. Retroflexed views revealed internal grade 1 hemorrhoids. A digital rectal exam was done and revealed small internal hemorrhoids. He states that he does not want to go on medications for IBD and does not want antibiotics unless absolutely necessary. CT Scan abdomen and pelvis with iv contrast (04/04/17)---> abnormal 6-7 segment of distal small bowel at the level of the terminal ileum with marked bowel wall thickening and upstream bowel dilatation as above. This is consistent with a history of Crohn's disease. He does not want to be started on any medications for Crohn's other than steroids, including antibiotics unless absolutely necessary. will adv diet, pt wants to try is protein shakes; he is on clears but will only drink tea b/c he is selective about food ingredients. Steroids. IVF. PLAN: - full liquids - Cont. Solumedrol - await Stool studies - Pt does not want antibiotics - Pt soes not want other meds for IBD - Supportive care - Pt seen and examined by Dr. Aparicio and myself and this note is written on his behalf (Traci Cummins) Physician Comments Feeling much better than yesterday. Refusing other meds for Crohn's Will follow up with you. (Joan Aparicio MD) Traci Cummins Apr 05, 2017 16:04 Joan Aparicio MD Apr 05, 2017 16:11
[2017-04-05 20:00] VITALS: BP 117/65; PULSE 52; RESP 18; TEMP 97; O2SAT 97
[2017-04-06 00:39] VITALS: BP 103/57; PULSE 52; RESP 18; TEMP 97.8; O2SAT 98
[2017-04-06] MEDS: methylPREDNISolone SOD SUCC 125 MG/2 ML VIAL IV PUSH SCH ×2 (05:14→17:57)
[2017-04-06] MEDS: SODIUM CHLOR 0.9% 1000 ML INJ 1,000 ML IV SCH (06:15)
--- NOTE | 2017-04-06 07:30 | RADRPT ---
EXAM DATE/TIME: 04/06/2017 06:07 [facility] COMPARISON: CT ABDOMEN & PELVIS W CONTRAST, April 04, 2017, 11:20. ABDOMEN KUB ONLY, April 04, 2017, 14:53. INDICATIONS : Abdominal discomfort, evaluate ileus MEDICAL HISTORY : Crohns disease SURGICAL HISTORY : None. ENCOUNTER: Subsequent ACUITY: 2 days PAIN SCORE: 2/10 LOCATION: Bilateral abdomen FINDINGS: Water-soluble contrast is noted throughout the colon from prior CT scan of the abdomen. Colon appears normal and there are no visualized abnormal loops of small bowel. No significant face calcifications . Abnormality seen on prior radiograph is absent CONCLUSION: Benign abdomen Darren Klein MD on April 06, 2017 at 7:27 Board Certified Radiologist. This report was verified electronically.
[2017-04-06 08:00] VITALS: BP 125/67; PULSE 56; RESP 17; TEMP 97.6; O2SAT 98
[2017-04-06 08:32] VITALS: BP 115/70; PULSE 50; RESP 17; TEMP 96.9; O2SAT 97
[2017-04-06 11:30] VITALS: BP 115/67; PULSE 60; RESP 14; TEMP 98; O2SAT 99
[2017-04-06] MEDS: MORPHINE SULFATE 4 MG/ML INJ IV PUSH PRN (12:33)
--- NOTE | 2017-04-06 12:50 | HHI.GIFU ---
Subjective Remarks Resting in bed. He was feeling good this morning and his diet was advanced. However, he reports that after eating applesauce, he started having significant abdominal cramping and bloating. 2 very small bowel movements- liquid a few days. No bleeding. (Brinda Sexton [facility]) Objective Vitals I&O Vital Signs Date Time Temp Pulse Resp B/P (MAP) Pulse Ox O2 Delivery O2 Flow Rate FiO2 04/06/17 11:30 98.0 60 14 115/67 (83) 99 04/06/17 08:32 96.9 50 17 115/70 (85) 97 04/06/17 08:00 97.6 56 17 125/67 (86) 98 04/06/17 00:39 97.8 52 18 103/57 (72) 98 04/05/17 20:00 97.0 52 18 117/65 (82) 97 04/05/17 16:00 97.9 57 17 135/75 (95) 98 I/O 04/05/17 04/05/17 04/05/17 04/06/17 04/06/17 04/06/17 07:00 15:00 23:00 07:00 15:00 23:00 Intake Total 400 ml 1080 ml 360 ml Balance 400 ml 1080 ml 360 ml Intake Oral 0 ml 1080 ml 360 ml IV Total 400 ml # Voids 2 8 2 # Bowel Movements 1 Laboratory Date/Time Source Procedure Growth Status 04/05/17 12:30 Stool Stool Cryptosporidium Exam Pending Resulted 04/05/17 12:30 Stool Stool Stool Pus ([facility]) - Final FEW WBC'S Resulted 04/05/17 12:30 Stool Stool Giardia Antigen ([facility]) Pending Resulted Imaging Last Impressions Abdomen X-Ray 04/06/17 0600 Signed Impressions: Service Date/Time: March 06:07 - CONCLUSION: Benign abdomen Darren Klein MD Abdomen/Pelvis CT 04/04/17 0830 Signed Impressions: Service Date/Time: Tuesday, April 04, 2017 11:20 - CONCLUSION: Abnormal 6-7 cm segment of distal small bowel at the level of the terminal ileum with marked bowel wall thickening and upstream bowel dilatation as above. This is consistent with a history of Crohn's disease. Alexsander Wong MD Physical Exam HEENT: Normocephalic; atraumatic; no jaundice. CHEST: CTA CARDIAC: RRR ABDOMEN: Soft, nondistended, mild midabdominal tenderness; no hepatosplenomegaly; bowel sounds are present in all four quadrants. EXTREMITIES: No clubbing, cyanosis, or edema. SKIN: Normal; no rash; no jaundice. 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 (Brinda Sexton [facility]) Assessment and Plan Plan ASSESSMENT: - Crohns Exacerbation. Dx 2012. He was initially on asacol, pentasa, and entocort, but has only been on low dose naltrexone and steroid tapers (when he had flares) for past 4 years. Flares seem to be aggravated by going out to eat/certain foods. He recently traveled to [place] and was eating out and came home and started having discomfort. Woke up with severe abdominal pain. No diarrhea. Small amount of blood when he wipes himself. Nausea, no vomiting. No fevers /chills. EGD/Colonoscopy (05/27/16)----> nodular mucosa in duodenal bulbbiopsy few small nodules and duodenum, biopsy. Gastritis in the antrum biopsy. Esophagitis in the distal esophagus/Schatzki's ring, biopsy. Retroflex views revealed a small hiatal hernia. On the Colonoscopy (05/27/16)---> colon looked normal, some semisolid stool, mostly on right side, aggressive washing, terminal ileum intubated, ulcer clean base , stricture biopsies taken. Random biopsies from cecum, ascending, transverse, descending, sigmoid, rectum. Retroflexed views revealed internal grade 1 hemorrhoids. A digital rectal exam was done and revealed small internal hemorrhoids. He states that he does not want to go on medications for IBD and does not want antibiotics unless absolutely necessary. CT Scan abdomen and pelvis with iv contrast (04/04/17)---> abnormal 6-7 segment of distal small bowel at the level of the terminal ileum with marked bowel wall thickening and upstream bowel dilatation as above. This is consistent with a history of Crohn's disease. He does not want to be started on any medications for Crohn's other than steroids, including antibiotics unless absolutely necessary. He was doing well and his diet was advanced earlier today. He states that after trying apple sauce today, he had worsening abdominal pain and bloating. He has had 2 small liquid stools no blood during this admission. Stools studies pending. Solumedrol. Probiotic. PLAN: - DESIREE - Add Dicyclomine - Cont. Solumedrol today - Await Stool studies - Pt does not want antibiotics - Pt does not want other meds for IBD - Supportive care - Pt seen and examined by Dr. Aparicio and myself and this note is written on his behalf (Brinda Sexton) Physician Comments Seen and examined, agree with the assessment and plan as above. Further recommendations to follow. (Joan Aparicio MD) Brinda Sexton Apr 06, 2017 12:50 Joan Aparicio MD Apr 06, 2017 13:33
[2017-04-06] MEDS ORDERED: DICYCLOMINE HCL 20 MG TAB PO PRN (13:00)
--- NOTE | 2017-04-06 13:17 | HHI.PR ---
Subjective Remarks Pt advanced to soft diet today and initially felt well but then developed abdominal pain Afebrile No N/V Objective Vitals Vital Signs Date Time Temp Pulse Resp B/P (MAP) Pulse Ox O2 Delivery O2 Flow Rate FiO2 04/06/17 11:30 98.0 60 14 115/67 (83) 99 04/06/17 08:32 96.9 50 17 115/70 (85) 97 04/06/17 08:00 97.6 56 17 125/67 (86) 98 04/06/17 00:39 97.8 52 18 103/57 (72) 98 04/05/17 20:00 97.0 52 18 117/65 (82) 97 04/05/17 16:00 97.9 57 17 135/75 (95) 98 Result Diagram: 04/05/17 0608 04/05/17 0608 Other Results Laboratory Tests Test 04/05/17 06:08 White Blood Count 5.8 TH/MM3 Red Blood Count 4.47 MIL/MM3 Hemoglobin 13.0 GM/DL Hematocrit 39.5 % Mean Corpuscular Volume 88.4 FL Mean Corpuscular Hemoglobin 29.2 PG Mean Corpuscular Hemoglobin Concent 33.0 % Red Cell Distribution Width 13.1 % Platelet Count 180 TH/MM3 Mean Platelet Volume 9.7 FL Neutrophils (%) (Auto) 75.3 % Lymphocytes (%) (Auto) 16.1 % Monocytes (%) (Auto) 8.5 % Eosinophils (%) (Auto) 0.0 % Basophils (%) (Auto) 0.1 % Neutrophils # (Auto) 4.4 TH/MM3 Lymphocytes # (Auto) 0.9 TH/MM3 Monocytes # (Auto) 0.5 TH/MM3 Eosinophils # (Auto) 0.0 TH/MM3 Basophils # (Auto) 0.0 TH/MM3 CBC Comment DIFF FINAL Differential Comment Blood Urea Nitrogen 17 MG/DL Creatinine 0.98 MG/DL Random Glucose 117 MG/DL Calcium Level 8.3 MG/DL Sodium Level 139 MEQ/L Potassium Level 4.1 MEQ/L Chloride Level 106 MEQ/L Carbon Dioxide Level 26.6 MEQ/L Anion Gap 6 MEQ/L Estimat Glomerular Filtration Rate 87 ML/MIN Imaging CT Abd/pelvis (04/04/17): - Abnormal 6-7cm segment of distal small bowel at the level of the terminal ileum with marked bowel wall thickening and upstream bowel distension Objective Remarks General: NAD, AAOx3 Chest: CTA Cardiac: Regular Abd: +BS, soft ND/NT Ext: no edema A/P Problem List: (1) Crohn's disease involving terminal ileum ICD Codes: K50.90 - Crohn's disease, unspecified, without complications Status: Acute Plan: - Pt is a 37 y/o WM with Crohn's disease. He was diagnosed in 2011. In the past he has been on Pentasa, Asacol and Entocort as well as prednisone at various times for his Crohn's but over the last 3 years has been controlling his symptoms with his diet and supplements and had been symptom free up until March 2016 he started having symptoms again. - For the last few weeks he has had some intermittent abdominal pain and loose stools and some bloody stools as well. - Around 2:30AM on the day of admission he woke up with severe right sided abdominal pain and some intermittent nausea. - In the ED CT scan of the abd/pelvis revealed an abnormal 6-7cm segment of distal small bowel at the level of the terminal ileum with marked bowel wall thickening and upstream bowel distension. - Pt was given a dose of Solu-Medrol 125mg in the ED and some pain medication and his pain is controlled currently. - Cont. Solu-Medrol 60mg Q12H consider changing to oral steroids tomorrow - Pt had some discomfort with soft diet today - Stool studies pending - Pain control PRN - Supportive care - Anticipate discharge home tomorrow if pain is controlled on soft diet - DVT prophylaxis with SCDs Assessment and Plan Patient examined. Assessment and plan formulated with Anuradha Lugo PA-C. I agree with the above. crohns exacerbation. cont solumedrol and convert to prednisone at time of d/c. will need close GI f/u. advancing diet slowly. Anuradha Lugo Apr 06, 2017 13:17 Anish Valdovinos MD Apr 06, 2017 13:33
[2017-04-06 16:00] VITALS: BP 111/75; PULSE 45; RESP 18; TEMP 97.7; O2SAT 99
[2017-04-06 20:40] VITALS: BP 116/64; PULSE 51; RESP 18; TEMP 98.4; O2SAT 99
[2017-04-07] VITALS: BP 122/62; PULSE 50; RESP 18; TEMP 98.4; O2SAT 98
[2017-04-07] MEDS: methylPREDNISolone SOD SUCC 125 MG/2 ML VIAL IV PUSH SCH (04:59)
[2017-04-07 08:10] VITALS: BP 110/64; PULSE 44; RESP 14; TEMP 98.1; O2SAT 99
[2017-04-07] MEDS ORDERED: DICY20TA10 PO (11:16)
[2017-04-07] MEDS ORDERED: PRED20 PO (11:16)
--- NOTE | 2017-04-07 11:19 | HHI.DCPOC ---
Discharge Care Plan Diagnosis: (1) Crohn's disease involving terminal ileum (2) Partial bowel obstruction Goals to Promote Your Health * To prevent worsening of your condition and complications * To maintain your health at the optimal level - Followup with Dr. Maxwell in 10 days, call for an appt - Continue taking Prednisone 40mg daily until seen by Dr. Maxwell who can recommend tapering instructions at that time. - Followup with your PCP, Dr. Barajas, in 1 week, call for an appt. Directions to Meet Your Goals Take your medications as prescribed Follow your dietary instruction Follow activity as directed Keep your appointments as scheduled Take your immunizations and boosters as scheduled If your symptoms worsen call your PCP, if no PCP go to Urgent Care Center or Emergency Room Smoking is Dangerous to Your Health. Avoid second hand smoke Call the 24-hour hour crisis hotline for domestic abuse at Anuradha Lugo Apr 07, 2017 11:19
[2017-04-07 11:40] VITALS: BP 117/64; PULSE 60; RESP 14; TEMP 98
[2017-04-07] MEDS ORDERED: predniSONE 20 MG TAB PO SCH (13:00)
--- NOTE | 2017-04-07 13:43 | HHI.DS ---
Discharge Summary Admission Date Apr 04, 2017 at 12:20 Discharge Date: Apr 07, 2017 Admitting Diagnosis abdominal pain, Crohn's disease flareup, partial bowel obstruction (1) Crohn's disease involving terminal ileum Diagnosis: Principal ICD Codes: K50.90 - Crohn's disease, unspecified, without complications Status: Acute Brief History Mr. De Leon is a pleasant 37 y/o WM with Crohn's disease. He was diagnosed in 2011. In the past he has been on Pentasa, Asacol and Entocort as well as prednisone at various times for his Crohn's but over the last 3 years has been controlling his symptoms with his diet and supplements and had been symptom free up until March 2016 he started having symptoms again. He feels that his diet is a big factor in controlling his symptoms. Pt was hospitalized in October 2016 at for Crohn's flare and was treated with steroids at that time with improvement. He reports that for the last few weeks he has had some intermittent abdominal pain and loose stools which has been waxing and waning. He has noted some bloody stools as well. Patient says that when his symptoms first began a few weeks ago he called the Dr. Maxwell's office who prescribed him prednisone. However patient's symptoms subsided and he did not take the prednisone. For the last 2-3 days he had been feeling well overall. Then around 2:30AM this morning he woke up with severe right sided abdominal pain and some intermittent nausea. He took the first dose of prednisone this morning but the abdominal pain was severe and he decided to come to the ED for further evaluation. In the ED CT scan of the abd/pelvis revealed an abnormal 6-7cm segment of distal small bowel at the level of the terminal ileum with marked bowel wall thickening and upstream bowel distension. Pt was given a dose of Solu -Medrol 125mg in the ED and some pain medication and his pain is controlled currently. Denies any fevers/chills, vomiting, melena, weight changes, chest pain, SOB or palpitations. CBC/BMP: 04/05/17 0608 04/05/17 0608 Significant Findings Laboratory Tests Test 04/05/17 06:08 Red Blood Count 4.47 MIL/MM3 (4.50-5.90) Neutrophils (%) (Auto) 75.3 % (16.0-70.0) Monocytes (%) (Auto) 8.5 % (0.0-8.0) Lymphocytes # (Auto) 0.9 TH/MM3 (1.0-4.8) Random Glucose 117 MG/DL (74-106) Calcium Level 8.3 MG/DL (8.5-10.1) Estimat Glomerular Filtration Rate 87 ML/MIN (>89) PE at Discharge General: NAD, AAOx3 Chest: CTA Cardiac: Regular Abd: +BS, soft ND/NT Ext: no edema Hospital Course (1) Crohn's disease involving terminal ileum - Pt is a 37 y/o WM with Crohn's disease. He was diagnosed in 2011. In the past he has been on Pentasa, Asacol and Entocort as well as prednisone at various times for his Crohn's but over the last 3 years has been controlling his symptoms with his diet and supplements and had been symptom free up until March 2016 he started having symptoms again. - For the last few weeks he has had some intermittent abdominal pain and loose stools and some bloody stools as well. - Around 2:30AM on the day of admission he woke up with severe right sided abdominal pain and some intermittent nausea. - In the ED CT scan of the abd/pelvis revealed an abnormal 6-7cm segment of distal small bowel at the level of the terminal ileum with marked bowel wall thickening and upstream bowel distension. - Pt was given a dose of Solu-Medrol 125mg in the ED and some pain medication and his pain is controlled currently. - Solu-Medrol 60mg Q12H - now tolerating soft diet. - convert steroids to prednisone 40mg daily and pt understands to continue 40mg daily until f/u with Dr Maxwell in next 7-10 days and then taper per Dr Maxwell orders. Pt Condition on Discharge: Stable Discharge Disposition: Discharge Home Discharge Instructions DIET: Follow Instructions for: Low Residue Diet Activities you can perform: Regular-No Restrictions Follow up Referrals: Gastroenterology - 10 Days with Purnima Maxwell MD PCP Follow-up - [address] Rubio Barajas New Medications: Prednisone (Prednisone) 20 Mg Tab 40 MG PO DAILY for crohn's flare, #40 TAB 0 Refills Dicyclomine (Dicyclomine) 20 Mg Tab 20 MG PO TID PRN for CRAMPING PAIN, #30 TAB Discontinued Medications: Prednisone (Prednisone) 20 Mg Tab 40 MG PO DIRECTED, TAB 0 Refills Anish Valdovinos MD Apr 07, 2017 13:43
== END 2017-04-07 12:28 | disposition home or self-care (01) | DRG 386 ==
LOC: NEPE 07:27 → NEDA 12:20 → N07A 18:36
PROVIDERS: ADMIT Hospitalist; ATTEND Hospitalist
DX: K50.00 Crohn's disease of small intestine without complications (principal); K56.60 Unspecified intestinal obstruction
CPT/HCPCS: 74000; 74177; 80048; 80053; 81001; 83690; 85025; 87205; 87328; 87329; 87506; 96361; 96374; 96375; J1885; J2270; J2405; J2930; J7030; Q9963; Q9967

== ENCOUNTER 2017-04-14 13:04 | Inpatient (IN) | payer OTHER ==
[~2017-04-14] VITALS: Ht 182.9 cm; Wt 80.0 kg
[~2017-04-14 13:04] MED LIST changes: -BUDE3CAP5 PO; +DICY20TA10 PO; -HYDR-3580 PO; -MESA250 PO; -NALT50 PO
[2017-04-14 21:21] VITALS: BP 116/65; PULSE 53; RESP 17; TEMP 98.1; O2SAT 95
[2017-04-14] MEDS ORDERED: prednisone PO (22:07)
[2017-04-14] MEDS: SODIUM CHLOR 0.9% 1000 ML INJ 1,000 ML IV SCH (22:30)
[2017-04-14 23:43] VITALS: BP 114/70; PULSE 43; RESP 18; TEMP 98; O2SAT 95
[2017-04-15 04:34] VITALS: BP 114/59; PULSE 44; RESP 17; TEMP 98.2; O2SAT 96
[2017-04-15 08:55] LABS: BASOPHIL % 0.1 % (0.0-2.0); EOSINOPHIL # 0.1 TH/MM3 (0-0.4); EOSINOPHIL % 0.7 % (0.0-4.0); HEMATOCRIT 41.9 % (39.0-51.0); HEMO FLAGS DIFF FINAL; LYMPH % 30.8 % (9.0-44.0); LYMPHOCYTE # 2.1 TH/MM3 (1.0-4.8); MEAN CORPUSCULAR HEMOGLOBIN 29.4 PG (27.0-34.0); MEAN CORPUSCULAR HGB CONC 33.4 % (32.0-36.0); MONO % 10.5 % (0.0-8.0); NEUT % 57.9 % (16.0-70.0); PLATELET COUNT 180 TH/MM3 (150-450); RED BLOOD COUNT 4.76 MIL/MM3 (4.50-5.90); WHITE BLOOD COUNT 6.9 TH/MM3 (4.0-11.0)
[2017-04-15] MEDS ORDERED: methylPREDNISolone SOD SUCC 125 MG/2 ML VIAL IV PUSH SCH (09:00)
[2017-04-15] MEDS: SODIUM CHLOR 0.9% 1000 ML INJ 1,000 ML IV SCH ×3 (09:11→17:53)
[2017-04-15 09:15] LABS: ANION GAP 7 MEQ/L (5-15); AST (GOT) 10 U/L (15-37); BICARBONATE 28.9 MEQ/L (21.0-32.0); BLOOD UREA NITROGEN 14 MG/DL (7-18); CHLORIDE 104 MEQ/L (98-107); GLOMERULAR FILTRATION RATE 74 ML/MIN (>89); POTASSIUM 3.7 MEQ/L (3.5-5.1); SODIUM (NA) 140 MEQ/L (136-145)
[2017-04-15 09:17] LABS: ALT (GPT) 24 U/L (12-78)
[2017-04-15 09:20] LABS: ALKALINE PHOSPHATASE 67 U/L (45-117); TOTAL BILIRUBIN ADULT 0.5 MG/DL (0.2-1.0)
[2017-04-15] MEDS ORDERED: SODIUM CHLORIDE 0.9% FLUSH 10 ML FLUSH IV FLUSH PRN (09:45)
[2017-04-15] MEDS ORDERED: ONDANSETRON HCL 4 MG/2 ML VIAL IVP PRN (09:45)
[2017-04-15] MEDS ORDERED: MAGNESIUM HYDROXIDE SUSP 30 ML CUP PO PRN (09:45)
[2017-04-15] MEDS ORDERED: ACETAMINOPHEN 325 MG TAB PO PRN (09:45)
[2017-04-15] MEDS ORDERED: TEMAZEPAM 15 MG CAP PO PRN (09:45)
[2017-04-15] MEDS ORDERED: NALOXONE HCL 0.4 MG/ML AMP IV PRN (09:45)
[2017-04-15] MEDS ORDERED: PNEUMOCOCCAL POLYVALENT INJ 25 MCG/0.5 ML SYR IM ONE (10:00)
[2017-04-15] MEDS ORDERED: INFLUENZA VIRUS VACCINE (QUADRIVALENT) 0.5 ML SYR IM ONE (10:00)
--- NOTE | 2017-04-15 10:05 | HHI.HP ---
HPI Service [facility] Hospital[facility] Primary Care Physician Shelby Barajas MD ([facility]) Admission Diagnosis Chief Complaint: Abdominal pain Crohn's disease Travel History International Travel<30 Days: No Contact w/Intl Traveler <30 Da: No Traveled to Known Affected Are: No History of Present Illness Mr. De Leon is a pleasant 37 y/o WM with Crohn's disease. He was diagnosed in 2011. In the past he has been on Pentasa, Asacol and Entocort as well as prednisone at various times for his Crohn's but over the last 3 years has been controlling his symptoms with his diet and supplements and had been symptom free up until March 2016 he started having symptoms again. He feels that his diet is a big factor in controlling his symptoms. Pt was hospitalized in October 2016 at for Crohn's flare and was treated with steroids at that time with improvement. Pt was readmitted at [place] 04/04 - 04/07. Pt had recurred abdominal pain with loose and bloody stools. CT scan of the abd/ pelvis (04/04/17) revealed an abnormal 6-7cm segment of distal small bowel at the level of the terminal ileum with marked bowel wall thickening and upstream bowel distension. Pt was treated with IV solumedrol then converted to PO prednisone. Yesterday (04/14/17) pt contacted Dr. Maxwell's office with c/o recurrent abdominal pain despite PO prednisone. Direct admission requested. Pt admitted to the medical service. Pt was started on IV fluids and IV steroids. Consult placed to Gastroenterology. Review of Systems Constitutional: DENIES: Diaphoretic episodes, Fatigue, Fever, Weight gain, Weight loss, Chills, Dizziness, Change in appetite, Night Sweats Endocrine: DENIES: Heat/cold intolerance, Polydipsia, Polyuria, Polyphagia Eyes: DENIES: Blurred vision, Diplopia, Eye inflammation, Eye pain, Vision loss , Photosensitivity, Double Vision Ears, nose, mouth, throat: DENIES: Tinnitus, Hearing loss, Vertigo, Nasal discharge, Oral lesions, Throat pain, Hoarseness, Ear Pain, Running Nose, Epistaxis, Sinus Pain, Toothache, Odynophagia Respiratory: DENIES: Apneas, Cough, Snoring, Wheezing, Hemoptysis, Sputum production, Shortness of breath Cardiovascular: DENIES: Chest pain, Palpitations, Syncope, Dyspnea on Exertion , PND, Lower Extremity Edema, Orthopnea, Claudication Gastrointestinal: COMPLAINS OF: Abdominal pain, See HPI, DENIES: Black stools, Bloody stools, BRB per rectum, Constipation, Diarrhea, GERD, Nausea, Reflux, Vomiting, Difficulty Swallowing, Anorexia Genitourinary: DENIES: Urinary frequency, Urinary incontinence, Urgency, Hematuria, Dysuria, Nocturia Musculoskeletal: DENIES: Joint pain, Muscle aches, Stiffness, Joint Swelling, Back pain, Neck pain Integumentary: DENIES: Abnormal pigmentation, Nail changes, Pruritus, Rash Hematologic/lymphatic: DENIES: Bruising, Lymphadenopathy Immunologic/allergic: DENIES: Eczema, Urticaria Neurologic: DENIES: Abnormal gait, Headache, Localized weakness, Paresthesias, Seizures, Speech Problems, Tremor, Poor Balance Psychiatric: DENIES: Anxiety, Confusion, Mood changes, Depression, Hallucinations, Agitation, Suicidal Ideation, Homicidal Ideation, Delusions, History of Bipolar, History of Schizophrenia Past Family Social History Past Medical History Crohn's disease Past Surgical History EGD/Colonoscopy (09/09/11)-----> severe gastritis in the antrum and body with multiple small nasogastric tube trauma but very superficial, nodular mucosa in the duodenal bulb and some duodenitis in the first portion of the duodenum, rest of endoscopy normal, stool throughout the colon, but colon looked normal, terminal ileum multiple ulcerations suggesting terminal ileitis versus Crohn's disease. Pathology revealed peptic duodenitis, mild chronic gastritis, negative for Helicobacter, severe chronic active ileitis with features of ulceration, ileocecal valve with colonic mucosa with a prominent lymphoid nodule, right and left colonic mucosa with vascular congestion. 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 SKIN: No rashes, ecchymoses or lesions. Cool and dry. HEAD: Atraumatic. Normocephalic. No temporal or scalp tenderness. EYES: Pupils equal round and reactive. Extraocular motions intact. No scleral icterus. No injection or drainage. ENT: Nose without bleeding, purulent drainage or septal hematoma. Throat without erythema, tonsillar hypertrophy or exudate. Uvula midline. Airway patent. NECK: Trachea midline. No JVD or lymphadenopathy. Supple, nontender, no meningeal signs. CARDIOVASCULAR: Regular rate and rhythm without murmurs, gallops, or rubs. RESPIRATORY: Clear to auscultation. Breath sounds equal bilaterally. No wheezes , rales, or rhonchi. GASTROINTESTINAL: Abdomen soft, non-tender, nondistended. No hepato-splenomegaly , or palpable masses. No guarding. MUSCULOSKELETAL: Extremities without clubbing, cyanosis, or edema. No joint tenderness, effusion, or edema noted. No calf tenderness. Negative Homans sign bilaterally. NEUROLOGICAL: Awake and alert. Cranial nerves II through XII intact. Motor and sensory grossly within normal limits. Five out of 5 muscle strength in all muscle groups. Normal speech. Laboratory Laboratory Tests Test 04/15/17 08:11 White Blood Count 6.9 Red Blood Count 4.76 Hemoglobin 14.0 Hematocrit 41.9 Mean Corpuscular Volume 88.0 Mean Corpuscular Hemoglobin 29.4 Mean Corpuscular Hemoglobin Concent 33.4 Red Cell Distribution Width 13.0 Platelet Count 180 Mean Platelet Volume 9.0 Neutrophils (%) (Auto) 57.9 Lymphocytes (%) (Auto) 30.8 Monocytes (%) (Auto) 10.5 Eosinophils (%) (Auto) 0.7 Basophils (%) (Auto) 0.1 Neutrophils # (Auto) 4.0 Lymphocytes # (Auto) 2.1 Monocytes # (Auto) 0.7 Eosinophils # (Auto) 0.1 Basophils # (Auto) 0.0 CBC Comment DIFF FINAL Differential Comment Blood Urea Nitrogen 14 Creatinine 1.13 Random Glucose 87 Total Protein 6.3 Albumin 3.0 Calcium Level 8.2 Alkaline Phosphatase 67 Aspartate Amino Transf (AST/SGOT) 10 Alanine Aminotransferase (ALT/SGPT) 24 Total Bilirubin 0.5 Sodium Level 140 Potassium Level 3.7 Chloride Level 104 Carbon Dioxide Level 28.9 Anion Gap 7 Estimat Glomerular Filtration Rate 74 Result Diagram: 04/15/1781004/15/17810 Septic Shock Reassessment Heart: Regular rate and rhythm Lungs: Clear Skin: Warm Peripheral Pulses: Bounding Right Radial Bounding Left Radial Bounding Right Popliteal Bounding Left Popliteal Bounding Right Dorsalis Pedis Bounding Left Dorsalis Pedis Bounding Right Posterior Tibial Bounding Left Posterior Tibial Capillary Refill: Brisk Caprini VTE Risk Assessment Caprini VTE Risk Assessment: No/Low Risk (score <= 1) Caprini Risk Assessment Model Point Value = 1 Point Value = 2 Point Value = 3 Point Value = 5 Age 41-60 Minor surgery BMI > 25 kg/m2 Swollen legs Varicose veins or History of unexplained or recurrent spontaneous Oral contraceptives or hormone replacement Sepsis (< 1 month) Serious lung disease, including pneumonia (< 1 month) Abnormal pulmonary function Acute myocardial infarction Congestive heart failure (< 1 month) History of inflammatory bowel disease Medical patient at bed rest Age 61-74 Arthroscopic surgery Major open surgery (> 45 min) Laparoscopic surgery (> 45 min) Malignancy Confined to bed (> 72 hours) Immobilizing plaster cast Central venous access Age >= 75 History of VTE Family history of VTE Factor V Leiden Prothrombin [id number] Lupus anticoagulant Anticardiolipin antibodies Elevated serum homocysteine Heparin-induced thrombocytopenia Other congenital or acquired thrombophilia Stroke (< 1 month) Elective arthroplasty Hip, pelvis, or leg fracture Acute spinal cord injury (< 1 month) Prophylaxis Regimen Total Risk Factor Score Risk Level Prophylaxis Regimen 0-1 Low Early ambulation 2 Moderate Order ONE of the following: *Sequential Compression Device (SCD) *Heparin 5000 units SQ BID 3-4 Higher Order ONE of the following medications: *Heparin 5000 units SQ TID *Enoxaparin/Lovenox 40 mg SQ daily (WT < 150 kg, CrCl > 30 mL/min) *Enoxaparin/Lovenox 30 mg SQ daily (WT < 150 kg, CrCl > 10-29 mL/min) *Enoxaparin/Lovenox 30 mg SQ BID (WT < 150 kg, CrCl > 30 mL/min) AND/OR *Sequential Compression Device (SCD) 5 or more Highest Order ONE of the following medications: *Heparin 5000 units SQ TID (Preferred with Epidurals) *Enoxaparin/Lovenox 40 mg SQ daily (WT < 150 kg, CrCl > 30 mL/min) *Enoxaparin/Lovenox 30 mg SQ daily (WT < 150 kg, CrCl > 10-29 mL/min) *Enoxaparin/Lovenox 30 mg SQ BID (WT < 150 kg, CrCl > 30 mL/min) AND *Sequential Compression Device (SCD) Assessment and Plan Problem List: (1) Crohn disease ICD Codes: K50.90 - Crohn's disease, unspecified, without complications Plan: - Crohn's disease involving the terminal ileum - 37 y/o WM with Crohn's disease. He was diagnosed in 2011. - In the past he has been on Pentasa, Asacol and Entocort as well as prednisone at various times for his Crohn's - over the last 3 years has been controlling his symptoms with his diet and supplements and had been symptom free up until March 2016 he started having symptoms again. He feels that his diet is a big factor in controlling his symptoms. - Pt was hospitalized in October 2016 at for Crohn's flare and was treated with steroids at that time with improvement. - For the last month pt has been experiencing intermitent abdominal pain & loose stools with some bloody stools - CT scan of the abd/pelvis (04/04/17) revealed an abnormal 6-7cm segment of distal small bowel at the level of the terminal ileum with marked bowel wall thickening and upstream bowel distension. - Pt was readmitted at [place] 04/04 - 04/07/17. - Pt was treated with IV solumedrol then converted to PO prednisone. - Despite PO prednisone pt again developed recurrent abdominal pain - Dr. Maxwell contacted me (04/14/17) with request for direct admission to the medical team - IVFs - IV solumedrol - obtain repeat CT abd/pelvis - consult GI - DVT prophylaxis - supportive care Physician Certification 2 Midnight Certification Type: Admission for Inpatient Services Order for Inpatient Services The services are ordered in accordance with Medicare regulations or non- Medicare payer requirements, as applicable. In the case of services not specified as inpatient-only, they are appropriately provided as inpatient services in accordance with the 2-midnight benchmark. Estimated LOS (days): 3 3 days is the estimated time the patient will need to remain in the hospital, assuming treatment plan goals are met and no additional complications. Post-Hospital Plan: Not yet determined Jake Bonilla DO Apr 15, 2017 10:05
[2017-04-15 10:10] VITALS: BP 141/86; PULSE 65; RESP 18; TEMP 98.6; O2SAT 99
[2017-04-15] MEDS ORDERED: HYDROmorphone HCL PF 1 MG/ML VIAL IV PUSH PRN (10:15)
[2017-04-15] MEDS ORDERED: ACETAMINOPHEN/HYDROcodone 325 MG/5 MG TAB PO PRN (10:15)
--- NOTE | 2017-04-15 10:33 | RADRPT ---
EXAM DATE/TIME: 04/15/2017 10:01 [facility] COMPARISON: CT ABDOMEN & PELVIS W CONTRAST, December 09, 2011, 16:50. INDICATIONS : Abdominal pain, nausea, constipation. MEDICAL HISTORY : Crohn's disease. SURGICAL HISTORY : None. ENCOUNTER: Initial ACUITY: 2 days PAIN SCORE: 0/10 LOCATION: Bilateral Abdomen FINDINGS: Supine view of the abdomen was performed. The abdominal bowel gas pattern is normal. No abnormal ma sses, calcifications, or organomegaly is seen. The osseous structures are unremarkable. CONCLUSION: No acute disease. Alexsander Wong MD on April 15, 2017 at 10:32 Board Certified Radiologist. This report was verified electronically.
--- NOTE | 2017-04-15 10:34 | RADRPT ---
EXAM DATE/TIME: 04/15/2017 09:57 [facility] COMPARISON: No previous studies available for comparison. INDICATIONS : Short of breath. MEDICAL HISTORY : None. SURGICAL HISTORY : None. ENCOUNTER: Initial ACUITY: 2 days PAIN SCORE: 0/10 LOCATION: Bilateral chest FINDINGS: Hyperinflation. No consolidation or effusion. Cardiomediastinal contours are normal. CONCLUSION: No acute disease. Alexsander Wong MD on April 15, 2017 at 10:32 Board Certified Radiologist. This report was verified electronically.
[2017-04-15] MEDS ORDERED: PRED20 PO (10:43)
[2017-04-15] MEDS ORDERED: DIATRIZOATE MEGLUM/DIATRIZOATE SOD 9 ML CUP PO ONE (11:15)
--- NOTE | 2017-04-15 11:42 | PD.CONS ---
HPI History of Present Illness This is a 37 year old male patient with crohns disease of the terminal ileum. He also has had gastritis in the past. He was in hospital two weeks ago for crohns flare up and received solumedrol. He improved and was discharged home. He was taking prednisone and was not sleeping well, getting fatigued and having upper mid abdominal burning pain. He has not been moving bowels well. Having early satiety. No vomiting. No diarrhea. No blood in stool. Feels bloated. He has been trying to control crohns with diet primarily and doing fairly well with nutritional supplements and restricted diet. ROS: no fever chills. No headache, sore throat, rash. No swelling. Otherwise complete ros is negative. PFSH Past Medical History Crohns. Gastritis Past Surgical History colonoscopy in the past for crohns showing terminal ileitis. EGD showed gastritis. Coded Allergies: No Known Allergies (Verified , 04/04/17) Medications Current Medications Medications (Trade) Dose Ordered Sig/Arnaud Route Start Time Stop Time Status Last Admin Sodium Chloride 1,000 ml @ 100 mls/hr Q10H IV 04/14/17 22:30 04/15/17 09:11 (NS Flush) 2 ml UNSCH PRN IV FLUSH 04/15/17 09:45 (NS Flush) 2 ml BID IV FLUSH 04/15/17 21:00 (Tylenol) 650 mg Q4H PRN PO 04/15/17 09:45 (Zofran Inj) 4 mg Q6H PRN IVP 04/15/17 09:45 (Restoril) 15 mg HS PRN PO 04/15/17 09:45 (Narcan Inj) 0.4 mg UNSCH PRN IV 04/15/17 09:45 (Milk Of Magnesia Liq) 30 ml Q12H PRN PO 04/15/17 09:45 ([place] 5-325 Mg) 1 tab Q4H PRN PO 04/15/17 10:15 (Dilaudid Pf Inj) 0.5 mg Q4H PRN IV PUSH 04/15/17 10:15 (SoluMEDROL INJ) 60 mg DAILY IV PUSH 04/16/17 09:00 UNV (Protonix) 40 mg BIDAC PO 04/15/17 11:30 UNV (Miralax) 34 gm Q1HR PO 04/15/17 16:00 04/15/17 18:01 UNV Family History No crohns in his family. No cancer. 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 non smoker GI Exam Vitals I&O Vital Signs Date Time Temp Pulse Resp B/P (MAP) Pulse Ox O2 Delivery O2 Flow Rate FiO2 04/15/17 10:10 98.6 65 18 141/86 (104) 99 04/15/17 04:34 98.2 44 17 114/59 (77) 96 04/14/17 23:43 98.0 43 18 114/70 (85) 95 04/14/17 21:21 98.1 53 17 116/65 (82) 95 I/O 04/14/17 04/14/17 04/14/17 04/15/17 04/15/17 04/15/17 06:59 14:59 22:59 06:59 14:59 22:59 Intake Total 200 ml 200 ml Balance 200 ml 200 ml Intake Oral 200 ml 200 ml Laboratory Test 04/15/17 08:11 White Blood Count 6.9 TH/MM3 Red Blood Count 4.76 MIL/MM3 Hemoglobin 14.0 GM/DL Hematocrit 41.9 % Mean Corpuscular Volume 88.0 FL Mean Corpuscular Hemoglobin 29.4 PG Mean Corpuscular Hemoglobin Concent 33.4 % Red Cell Distribution Width 13.0 % Platelet Count 180 TH/MM3 Mean Platelet Volume 9.0 FL Neutrophils (%) (Auto) 57.9 % Lymphocytes (%) (Auto) 30.8 % Monocytes (%) (Auto) 10.5 % Eosinophils (%) (Auto) 0.7 % Basophils (%) (Auto) 0.1 % Neutrophils # (Auto) 4.0 TH/MM3 Lymphocytes # (Auto) 2.1 TH/MM3 Monocytes # (Auto) 0.7 TH/MM3 Eosinophils # (Auto) 0.1 TH/MM3 Basophils # (Auto) 0.0 TH/MM3 CBC Comment DIFF FINAL Differential Comment Blood Urea Nitrogen 14 MG/DL Creatinine 1.13 MG/DL Random Glucose 87 MG/DL Total Protein 6.3 GM/DL Albumin 3.0 GM/DL Calcium Level 8.2 MG/DL Alkaline Phosphatase 67 U/L Aspartate Amino Transf (AST/SGOT) 10 U/L Alanine Aminotransferase (ALT/SGPT) 24 U/L Total Bilirubin 0.5 MG/DL Sodium Level 140 MEQ/L Potassium Level 3.7 MEQ/L Chloride Level 104 MEQ/L Carbon Dioxide Level 28.9 MEQ/L Anion Gap 7 MEQ/L Estimat Glomerular Filtration Rate 74 ML/MIN Physical Examination HEENT: Pupils round and reactive to light; normocephalic; atraumatic; no jaundice. Throat is clear. NECK: Neck is supple, no JVD, no lymphadenopathy. CHEST: Chest is clear to auscultation and percussion. CARDIAC: Regular rate and rhythm with no murmur gallop or rubs. ABDOMEN: Soft, nondistended, nontender; no hepatosplenomegaly; bowel sounds are present in all four quadrants. EXTREMITIES: No clubbing, cyanosis, or edema. SKIN: Normal; no rash; no jaundice. 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 Assessment and Plan Plan Impression: -Crohns disease of terminal ileum -Gastritis, possible GERD Early satiety, bloating Plan: Reduce solumedrol to 60mg daily. Flush out colon with miralax Treat for gastritis and GERD with protonix PO BID Await results of CT scan. Bolivar Islas MD Apr 15, 2017 11:42
[2017-04-15] MEDS ORDERED: IOHEXOL 350 MG/ML 10 ML VIAL (for RAD DIAG) IVCONTRAST ONE (14:38)
--- NOTE | 2017-04-15 14:52 | RADRPT ---
EXAM DATE/TIME: 04/15/2017 14:03 [facility] COMPARISON: CT ABDOMEN & PELVIS W CONTRAST, April 04, 2017, 11:20. INDICATIONS : Crohn's disease, abnormal terminal ileum on prior scan. IV CONTRAST: 75 cc Omnipaque 350 (iohexol) IV ORAL CONTRAST: Prescribed oral contrast ingested. RADIATION DOSE: 6.71 CTDIvol (mGy) MEDICAL HISTORY : Crohn's disease. SURGICAL HISTORY : None. ENCOUNTER: Initial ACUITY: 1 day PAIN SCALE: 7/10 LOCATION: cranial TECHNIQUE: Volumetric scanning of the abdomen and pelvis was performed. Using automated exposure control and ad justment of the mA and/or kV according to patient size, radiation dose was kept as low as reasonably achievable to obtain optimal diagnostic quality images. DICOM format image data is available electro nically for review and comparison. FINDINGS: The lung base is are clear. The liver, spleen, pancreas, adrenals and kidneys are unremarkable. There is good visualization of the bowel in this individual would Crohn's disease. There is no ascit es or free fluid present. There is an essential loop of mid jejunum left upper quadrant with associated bowel wall thickening t hat could be involved with Crohn's disease however again it did look at the terminal ileum and I do n ot see evidence for disease in the right lower quadrant. There is normal appearing appendix. Hemivertebrae is seen in the lower lumbar spine. CONCLUSION: Significant improvement in the abnormal small bowel right lower quadrant Focal loop of small bowel in the left upper quadrant that is not abnormal. This would be an unusual appearance for peristalsis. Correlation is suggested. Juan Jose Will MD FACR on April 15, 2017 at 14:47 Board Certified Radiologist. This report was verified electronically.
[2017-04-15] MEDS: POLYETHYLENE GLYCOL 17 GM PKG PO SCH ×3 (15:09→19:40)
[2017-04-15] MEDS: PANTOPRAZOLE SOD 40 MG DELAYED RELEASE TAB PO SCH ×2 (15:09→15:49)
[2017-04-15 15:54] VITALS: BP 139/77; PULSE 57; RESP 16; TEMP 98.5; O2SAT 98
[2017-04-15 20:11] VITALS: BP 119/69; PULSE 56; RESP 18; TEMP 98.6; O2SAT 96
[2017-04-15] MEDS ORDERED: methylPREDNISolone SOD SUCC 125 MG/2 ML VIAL IV PUSH ONE (20:30)
[2017-04-15] MEDS: SODIUM CHLORIDE 0.9% FLUSH 10 ML FLUSH IV FLUSH SCH (21:00)
[2017-04-15 23:47] VITALS: BP 108/63; PULSE 53; RESP 18; TEMP 98; O2SAT 96
[2017-04-16 04:50] VITALS: BP 116/68; PULSE 47; RESP 16; TEMP 98.7; O2SAT 99
[2017-04-16] MEDS: PANTOPRAZOLE SOD 40 MG DELAYED RELEASE TAB PO SCH ×2 (06:09→16:03)
[2017-04-16 07:29] VITALS: BP 106/60; PULSE 58; RESP 20; TEMP 97.8; O2SAT 96
[2017-04-16] MEDS ORDERED: methylPREDNISolone SOD SUCC 125 MG/2 ML VIAL IV PUSH SCH (09:00)
--- NOTE | 2017-04-16 09:07 | HHI.GIFU ---
Subjective Remarks Patient reports feeling OK, but felt abdominal gurgles and disquiet after having soup last night. Very little stool so far after the oral contrast and the six doses of miralax yesterday. He would like to try some more laxatives. Denies abdominal pain. No nausea. Objective Vitals I&O Vital Signs Date Time Temp Pulse Resp B/P (MAP) Pulse Ox O2 Delivery O2 Flow Rate FiO2 04/16/17 07:29 97.8 58 20 106/60 (75) 96 04/16/17 04:50 98.7 47 16 116/68 (84) 99 04/15/17 23:47 98.0 53 18 108/63 (78) 96 04/15/17 20:11 98.6 56 18 119/69 (86) 96 04/15/17 15:54 98.5 57 16 139/77 (97) 98 04/15/17 10:10 98.6 65 18 141/86 (104) 99 I/O 04/15/17 04/15/17 04/15/17 04/16/17 04/16/17 04/16/17 06:59 14:59 22:59 06:59 14:59 22:59 Intake Total 200 ml Balance 200 ml Intake Oral 200 ml # Voids 2 Physical Exam HEENT: Pupils round and reactive to light; normocephalic; atraumatic; no jaundice. Throat is clear. NECK: Neck is supple, no JVD, no lymphadenopathy. CHEST: Chest is clear to auscultation and percussion. CARDIAC: Regular rate and rhythm with no murmur gallop or rubs. ABDOMEN: Soft, nondistended, nontender; no hepatosplenomegaly; bowel sounds are present in all four quadrants. EXTREMITIES: No clubbing, cyanosis, or edema. SKIN: Normal; no rash; no jaundice. 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 Assessment and Plan Plan Impression: -Crohns disease of terminal ileum -Gastritis, possible GERD Early satiety, bloating Poor response to laxatives suggestive of constipation which may be responsible for some of his symptoms. Plan: Reduce solumedrol to 60mg daily. Pt did receive an extra dose of solumedrol 60 yesterday at his request. Repeat flush out colon with miralax and add dulcolax 4 pills today. Treat for gastritis and GERD with protonix PO BID Bolivar Islas MD Apr 16, 2017 09:07
[2017-04-16] MEDS: POLYETHYLENE GLYCOL 17 GM PKG PO SCH ×4 (09:24→17:57)
[2017-04-16] MEDS: SODIUM CHLORIDE 0.9% FLUSH 10 ML FLUSH IV FLUSH SCH ×2 (09:24→19:57)
[2017-04-16] MEDS: BISACODYL EC 5 MG TABEC PO SCH ×2 (09:25→12:58)
--- NOTE | 2017-04-16 10:40 | HHI.PR ---
Subjective Remarks Patient reports feeling, "good as long as I don't eat." reports having some bloating and gurgling about 1.5 hours after eating soup last night. reports small BM after miralax yesterday Objective Vitals Vital Signs Date Time Temp Pulse Resp B/P (MAP) Pulse Ox O2 Delivery O2 Flow Rate FiO2 04/16/17 07:29 97.8 58 20 106/60 (75) 96 04/16/17 04:50 98.7 47 16 116/68 (84) 99 04/15/17 23:47 98.0 53 18 108/63 (78) 96 04/15/17 20:11 98.6 56 18 119/69 (86) 96 04/15/17 15:54 98.5 57 16 139/77 (97) 98 Result Diagram: 04/15/17 0811 04/15/17 0811 Other Results Laboratory Tests Test 04/15/17 08:11 White Blood Count 6.9 TH/MM3 Red Blood Count 4.76 MIL/MM3 Hemoglobin 14.0 GM/DL Hematocrit 41.9 % Mean Corpuscular Volume 88.0 FL Mean Corpuscular Hemoglobin 29.4 PG Mean Corpuscular Hemoglobin Concent 33.4 % Red Cell Distribution Width 13.0 % Platelet Count 180 TH/MM3 Mean Platelet Volume 9.0 FL Neutrophils (%) (Auto) 57.9 % Lymphocytes (%) (Auto) 30.8 % Monocytes (%) (Auto) 10.5 % Eosinophils (%) (Auto) 0.7 % Basophils (%) (Auto) 0.1 % Neutrophils # (Auto) 4.0 TH/MM3 Lymphocytes # (Auto) 2.1 TH/MM3 Monocytes # (Auto) 0.7 TH/MM3 Eosinophils # (Auto) 0.1 TH/MM3 Basophils # (Auto) 0.0 TH/MM3 CBC Comment DIFF FINAL Differential Comment Blood Urea Nitrogen 14 MG/DL Creatinine 1.13 MG/DL Random Glucose 87 MG/DL Total Protein 6.3 GM/DL Albumin 3.0 GM/DL Calcium Level 8.2 MG/DL Alkaline Phosphatase 67 U/L Aspartate Amino Transf (AST/SGOT) 10 U/L Alanine Aminotransferase (ALT/SGPT) 24 U/L Total Bilirubin 0.5 MG/DL Sodium Level 140 MEQ/L Potassium Level 3.7 MEQ/L Chloride Level 104 MEQ/L Carbon Dioxide Level 28.9 MEQ/L Anion Gap 7 MEQ/L Estimat Glomerular Filtration Rate 74 ML/MIN Imaging Last Impressions Chest X-Ray 04/15/17 0935 Signed Impressions: Service Date/Time: Saturday, April 15, 2017 09:57 - CONCLUSION: No acute disease. Alexsander Wong MD Abdomen/Pelvis CT 04/15/17 0000 Signed Impressions: Service Date/Time: Saturday, April 15, 2017 14:03 - CONCLUSION: Significant improvement in the abnormal small bowel right lower quadrant Focal loop of small bowel in the left upper quadrant that is not abnormal. This would be an unusual appearance for peristalsis. Correlation is suggested. Juan Jose Will MD FACR Abdomen X-Ray 04/15/17 0000 Signed Impressions: Service Date/Time: Saturday, April 15, 2017 10:01 - CONCLUSION: No acute disease. Alxesander Wong MD Objective Remarks GENERAL: This is a well-nourished, well-developed patient, in no apparent distress. SKIN: No rashes, ecchymoses or lesions. Cool and dry. CARDIOVASCULAR: Regular rate and rhythm without murmurs, gallops, or rubs. RESPIRATORY: Clear to auscultation. Breath sounds equal bilaterally. No wheezes , rales, or rhonchi. GASTROINTESTINAL: Abdomen soft, mild tenderness to palpation through out, nondistended. No guarding. NEUROLOGICAL: Awake and alert. no focal deficits. Motor and sensory grossly within normal limits. Five out of 5 muscle strength in all muscle groups. Normal speech. A/P Problem List: (1) Crohn disease ICD Codes: K50.90 - Crohn's disease, unspecified, without complications Plan: - Crohn's disease involving the terminal ileum - 37 y/o WM with Crohn's disease. He was diagnosed in 2011. - In the past he has been on Pentasa, Asacol and Entocort as well as prednisone at various times for his Crohn's - over the last 3 years has been controlling his symptoms with his diet and supplements and had been symptom free up until March 2016 he started having symptoms again. He feels that his diet is a big factor in controlling his symptoms. - Pt was hospitalized in October 2016 at for Crohn's flare and was treated with steroids at that time with improvement. - For the last month pt has been experiencing intermittent abdominal pain & loose stools with some bloody stools - CT scan of the abd/pelvis (04/04/17) revealed an abnormal 6-7cm segment of distal small bowel at the level of the terminal ileum with marked bowel wall thickening and upstream bowel distension. - Pt was readmitted at [place] 04/04 - 04/07/17. - Pt was treated with IV solumedrol then converted to PO prednisone. - Despite PO prednisone pt again developed recurrent abdominal pain - (04/14/17) Dr. Maxwell request for direct admission to the medical team - [facility] - IV solumedrol changed to daily by GI - repeat CT abd/pelvis (04/15/17) reveals significant improvement in the abnormal small bowel right lower quadrant focal loop of small bowel in the left upper quadrant that is not abnormal - appreciate GI input recommend flush out colon with Miralax and Dulcolax, treat for gastritis and Protonix - given patient's abdominal bloating and discomfort after eating will decrease diet to clear liquids and increase Solumedrol to 60 mg IV BID (discussed with GI ) - DVT prophylaxis - supportive care Assessment and Plan Patient examined. Assessment and plan formulated with Anuradha Lugo PA-C. I agree with the above. Pt c/o recurrent symptoms after eating. Case d/w Dr. Islas (04/16/17) Will increase solumedrol to 60mg BID continue PPI CT (04/15/17) appeared improved Pt NOT interested in Crohn's specific drugs eg asacol at this time. hopefully will not require Small bowel resection. observe Yajaira Reed Apr 16, 2017 10:40 Jake Bonilla DO Apr 16, 2017 23:46
[2017-04-16 12:45] LABS: AUTOMATED NEUTROPHIL # 7.5 TH/MM3 (1.8-7.7); BASOPHIL % 0.1 % (0.0-2.0); HEMATOCRIT 38.3 % (39.0-51.0); HEMO FLAGS DIFF FINAL; LYMPH % 8.4 % (9.0-44.0); LYMPHOCYTE # 0.7 TH/MM3 (1.0-4.8); MEAN CELL VOLUME 88.6 FL (80.0-100.0); MEAN CORPUSCULAR HEMOGLOBIN 29.5 PG (27.0-34.0); MEAN CORPUSCULAR HGB CONC 33.3 % (32.0-36.0); MONO % 3.6 % (0.0-8.0); NEUT % 87.9 % (16.0-70.0); PLATELET COUNT 175 TH/MM3 (150-450); RED BLOOD COUNT 4.32 MIL/MM3 (4.50-5.90); RED CELL DISTRIBUTION WIDTH 13.2 % (11.6-17.2); WHITE BLOOD COUNT 8.5 TH/MM3 (4.0-11.0)
[2017-04-16 13:20] VITALS: BP 126/80; PULSE 45; RESP 16; TEMP 95.5; O2SAT 98
[2017-04-16 13:24] LABS: BICARBONATE 25.2 MEQ/L (21.0-32.0); POTASSIUM 3.3 MEQ/L (3.5-5.1)
[2017-04-16 13:53] LABS: CALCIUM-PROTEIN CORRECTED 7.9 MG/DL (8.5-10.1)
[2017-04-16] MEDS: SODIUM CHLOR 0.9% 1000 ML INJ 1,000 ML IV SCH ×2 (14:30→21:35)
[2017-04-16 15:45] VITALS: BP 120/69; PULSE 51; RESP 16; TEMP 97.4; O2SAT 96
[2017-04-16] MEDS: methylPREDNISolone SOD SUCC 125 MG/2 ML VIAL IV PUSH SCH (19:57)
[2017-04-16 19:59] VITALS: BP 125/70; PULSE 42; RESP 18; TEMP 96.7; O2SAT 99
[2017-04-16 23:50] VITALS: BP 114/73; PULSE 45; RESP 18; TEMP 97.2; O2SAT 99
[2017-04-17 04:02] VITALS: BP 104/53; PULSE 42; RESP 18; TEMP 96.7; O2SAT 98
[2017-04-17] MEDS: PANTOPRAZOLE SOD 40 MG DELAYED RELEASE TAB PO SCH ×2 (05:56→16:16)
[2017-04-17 08:00] VITALS: BP 127/68; PULSE 45; RESP 18; TEMP 97.9; O2SAT 95
[2017-04-17] MEDS ORDERED: POTASSIUM CHLOR 20 MEQ PREMIX 100 ML IV ONE (08:00)
[2017-04-17] MEDS ORDERED: POTASSIUM CHLORIDE 20 MEQ CONTROLLED RELEASE TAB PO ONE (09:00)
[2017-04-17] MEDS: methylPREDNISolone SOD SUCC 125 MG/2 ML VIAL IV PUSH SCH (09:54)
[2017-04-17] MEDS: SODIUM CHLORIDE 0.9% FLUSH 10 ML FLUSH IV FLUSH SCH ×2 (09:56→19:51)
[2017-04-17] MEDS: SODIUM CHLOR 0.9% 1000 ML INJ 1,000 ML IV SCH (09:59)
--- NOTE | 2017-04-17 10:18 | HHI.PR ---
Subjective Remarks no abdomen pain felt better after 6bm from laxative wants to try liquid diet Objective Vitals heart reg lung cta abd s/nt/nabs ext no edema Vital Signs Date Time Temp Pulse Resp B/P (MAP) Pulse Ox O2 Delivery O2 Flow Rate FiO2 04/17/17 08:00 97.9 45 18 127/68 (87) 95 04/17/17 04:02 96.7 42 18 104/53 (70) 98 04/16/17 23:50 97.2 45 18 114/73 (87) 99 04/16/17 19:59 96.7 42 18 125/70 (88) 99 04/16/17 15:45 97.4 51 16 120/69 (86) 96 04/16/17 13:20 95.5 45 16 126/80 (95) 98 Result Diagram: 04/16/17 1207 04/16/17 1207 Imaging Last Impressions Chest X-Ray 04/15/17 0935 Signed Impressions: Service Date/Time: Saturday, April 15, 2017 09:57 - CONCLUSION: No acute disease. Alexsander Wong MD Abdomen/Pelvis CT 04/15/17 0000 Signed Impressions: Service Date/Time: Saturday, April 15, 2017 14:03 - CONCLUSION: Significant improvement in the abnormal small bowel right lower quadrant Focal loop of small bowel in the left upper quadrant that is not abnormal. This would be an unusual appearance for peristalsis. Correlation is suggested. Juan Jose Will MD FACR Abdomen X-Ray 04/15/17 0000 Signed Impressions: Service Date/Time: Saturday, April 15, 2017 10:01 - CONCLUSION: No acute disease. Alexsander Wong MD A/P Problem List: (1) Crohn disease ICD Codes: K50.90 - Crohn's disease, unspecified, without complications Plan: - Crohn's disease involving the terminal ileum - 37 y/o WM with Crohn's disease. He was diagnosed in 2011. - In the past he has been on Pentasa, Asacol and Entocort as well as prednisone at various times for his Crohn's - over the last 3 years has been controlling his symptoms with his diet and supplements and had been symptom free up until March 2016 he started having symptoms again. He feels that his diet is a big factor in controlling his symptoms. - Pt was hospitalized in October 2016 at for Crohn's flare and was treated with steroids at that time with improvement. - For the last month pt has been experiencing intermittent abdominal pain & loose stools with some bloody stools - CT scan of the abd/pelvis (04/04/17) revealed an abnormal 6-7cm segment of distal small bowel at the level of the terminal ileum with marked bowel wall thickening and upstream bowel distension. - Pt was readmitted at [place] 04/04 - 04/07/17. - Pt was treated with IV solumedrol then converted to PO prednisone. - Despite PO prednisone pt again developed recurrent abdominal pain - (04/14/17) Dr. Maxwell request for direct admission to the medical team - repeat CT abd/pelvis (04/15/17) reveals significant improvement in the abnormal small bowel right lower quadrant focal loop of small bowel in the left upper quadrant that is not abnormal - appreciate GI input recommend flush out colon with Miralax and Dulcolax, treat for gastritis and Protonix -Solumedrol to 60 mg IV BID (discussed with GI) feeling better today. advance diet. discussed with GI...they want to try tapering the steroid and transitioning to outpt and close clinic f/u. Assessment and Plan ve Anish Valdovinos MD Apr 17, 2017 10:18
--- NOTE | 2017-04-17 10:20 | HHI.GIFU ---
Subjective Remarks Pt is feeling much better after passing numerous bms last night from the miralax. No pain. No nausea. He will advance diet today. Objective Vitals I&O Vital Signs Date Time Temp Pulse Resp B/P (MAP) Pulse Ox O2 Delivery O2 Flow Rate FiO2 04/17/17 08:00 97.9 45 18 127/68 (87) 95 04/17/17 04:02 96.7 42 18 104/53 (70) 98 04/16/17 23:50 97.2 45 18 114/73 (87) 99 04/16/17 19:59 96.7 42 18 125/70 (88) 99 04/16/17 15:45 97.4 51 16 120/69 (86) 96 04/16/17 13:20 95.5 45 16 126/80 (95) 98 I/O 04/16/17 04/16/17 04/16/17 04/17/17 04/17/17 04/17/17 07:00 15:00 23:00 07:00 15:00 23:00 Intake Total 480 ml 1030 ml 720 ml Balance 480 ml 1030 ml 720 ml Intake Oral 480 ml 480 ml 720 ml IV Total 550 ml # Voids 2 1 3 4 # Bowel Movements 0 3 3 Laboratory Laboratory Tests Test 04/16/17 12:07 White Blood Count 8.5 Red Blood Count 4.32 Hemoglobin 12.8 Hematocrit 38.3 Mean Corpuscular Volume 88.6 Mean Corpuscular Hemoglobin 29.5 Mean Corpuscular Hemoglobin Concent 33.3 Red Cell Distribution Width 13.2 Platelet Count 175 Mean Platelet Volume 9.2 Neutrophils (%) (Auto) 87.9 Lymphocytes (%) (Auto) 8.4 Monocytes (%) (Auto) 3.6 Eosinophils (%) (Auto) 0.0 Basophils (%) (Auto) 0.1 Neutrophils # (Auto) 7.5 Lymphocytes # (Auto) 0.7 Monocytes # (Auto) 0.3 Eosinophils # (Auto) 0.0 Basophils # (Auto) 0.0 CBC Comment DIFF FINAL Differential Comment Blood Urea Nitrogen 12 Creatinine 0.78 Random Glucose 90 Total Protein 4.8 Calcium Level 6.7 Sodium Level 145 Potassium Level 3.3 Chloride Level 114 Carbon Dioxide Level 25.2 Anion Gap 6 Estimat Glomerular Filtration Rate 113 Protein Corrected Calcium 7.9 Physical Exam HEENT: Pupils round and reactive to light; normocephalic; atraumatic; no jaundice. Throat is clear. NECK: Neck is supple, no JVD, no lymphadenopathy. CHEST: Chest is clear to auscultation and percussion. CARDIAC: Regular rate and rhythm with no murmur gallop or rubs. ABDOMEN: Soft, nondistended, nontender; no hepatosplenomegaly; bowel sounds are present in all four quadrants. EXTREMITIES: No clubbing, cyanosis, or edema. SKIN: Normal; no rash; no jaundice. HISTORIC SITE ADMINISTRATOR: No focal deficits; alert and oriented times three. Assessment and Plan Plan Impression: -Crohns disease of terminal ileum -Gastritis, possible GERD Early satiety, bloating Poor response to laxatives suggestive of constipation which may be responsible for some of his symptoms. Plan: Reduce solumedrol to 60mg daily. Pt did receive an extra dose of solumedrol 60 yesterday at his request. Repeat flush out colon with miralax and add dulcolax 4 pills today. Treat for gastritis and GERD with protonix PO BID If tolerates regular diet today he can go home tomorrow. Bolivar Islas MD Apr 17, 2017 10:20
[2017-04-17 11:15] LABS: AUTOMATED NEUTROPHIL # 5.9 TH/MM3 (1.8-7.7); BASOPHIL % 0.1 % (0.0-2.0); EOSINOPHIL % 0.1 % (0.0-4.0); HEMATOCRIT 43.4 % (39.0-51.0); HEMO FLAGS DIFF FINAL; LYMPH % 18.4 % (9.0-44.0); LYMPHOCYTE # 1.5 TH/MM3 (1.0-4.8); MEAN CELL VOLUME 87.7 FL (80.0-100.0); MEAN CORPUSCULAR HEMOGLOBIN 28.9 PG (27.0-34.0); MEAN CORPUSCULAR HGB CONC 32.9 % (32.0-36.0); MONO % 9.3 % (0.0-8.0); NEUT % 72.1 % (16.0-70.0); PLATELET COUNT 194 TH/MM3 (150-450); RED BLOOD COUNT 4.95 MIL/MM3 (4.50-5.90); RED CELL DISTRIBUTION WIDTH 13.2 % (11.6-17.2); WHITE BLOOD COUNT 8.2 TH/MM3 (4.0-11.0)
[2017-04-17 12:00] VITALS: BP 132/67; PULSE 47; RESP 18; TEMP 97.6; O2SAT 95
[2017-04-17 13:41] LABS: BICARBONATE 26.9 MEQ/L (21.0-32.0); POTASSIUM 3.8 MEQ/L (3.5-5.1)
[2017-04-17 16:00] VITALS: BP 120/71; PULSE 50; RESP 18; TEMP 98.4; O2SAT 94
[2017-04-17 20:30] VITALS: BP 113/71; PULSE 50; RESP 16; TEMP 98.5; O2SAT 98
[2017-04-17 23:45] VITALS: BP 113/60; PULSE 45; RESP 16; TEMP 97.8; O2SAT 98
[2017-04-18 04:10] VITALS: BP 93/50; PULSE 45; RESP 16; TEMP 97.3; O2SAT 99
[2017-04-18] MEDS: PANTOPRAZOLE SOD 40 MG DELAYED RELEASE TAB PO SCH ×2 (05:59→17:08)
[2017-04-18 08:00] VITALS: BP_SYST 133; BP_SYST 155; BP_DIAS 63; BP_DIAS 88; PULSE 62; PULSE 82; RESP 16; TEMP 98; TEMP 99.9; O2SAT 100; O2SAT 99
[2017-04-18] MEDS: methylPREDNISolone SOD SUCC 125 MG/2 ML VIAL IV PUSH SCH (09:17)
[2017-04-18] MEDS: SODIUM CHLORIDE 0.9% FLUSH 10 ML FLUSH IV FLUSH SCH ×2 (09:18→21:31)
--- NOTE | 2017-04-18 10:53 | HHI.PR ---
Subjective Remarks Patient reports feeling better today- no longer having bloating Tolerating PO intake reports mild burning which lasted for approximately 4 mins after eating Objective Vitals Vital Signs Date Time Temp Pulse Resp B/P (MAP) Pulse Ox O2 Delivery O2 Flow Rate FiO2 04/18/17 08:00 98.0 62 16 155/63 (93) 99 04/18/17 04:10 97.3 45 16 93/50 (64) 99 04/17/17 23:45 97.8 45 16 113/60 (77) 98 04/17/17 20:30 98.5 50 16 113/71 (85) 98 04/17/17 16:00 98.4 50 18 120/71 (87) 94 04/17/17 12:00 97.6 47 18 132/67 (88) 95 Result Diagram: 04/17/17 1039 04/17/17 1039 Other Results Laboratory Tests Test 04/16/17 12:07 04/17/17 10:39 White Blood Count 8.5 TH/MM3 8.2 TH/MM3 Red Blood Count 4.32 MIL/MM3 4.95 MIL/MM3 Hemoglobin 12.8 GM/DL 14.3 GM/DL Hematocrit 38.3 % 43.4 % Mean Corpuscular Volume 88.6 FL 87.7 FL Mean Corpuscular Hemoglobin 29.5 PG 28.9 PG Mean Corpuscular Hemoglobin Concent 33.3 % 32.9 % Red Cell Distribution Width 13.2 % 13.2 % Platelet Count 175 TH/MM3 194 TH/MM3 Mean Platelet Volume 9.2 FL 8.9 FL Neutrophils (%) (Auto) 87.9 % 72.1 % Lymphocytes (%) (Auto) 8.4 % 18.4 % Monocytes (%) (Auto) 3.6 % 9.3 % Eosinophils (%) (Auto) 0.0 % 0.1 % Basophils (%) (Auto) 0.1 % 0.1 % Neutrophils # (Auto) 7.5 TH/MM3 5.9 TH/MM3 Lymphocytes # (Auto) 0.7 TH/MM3 1.5 TH/MM3 Monocytes # (Auto) 0.3 TH/MM3 0.8 TH/MM3 Eosinophils # (Auto) 0.0 TH/MM3 0.0 TH/MM3 Basophils # (Auto) 0.0 TH/MM3 0.0 TH/MM3 CBC Comment DIFF FINAL DIFF FINAL Differential Comment Blood Urea Nitrogen 12 MG/DL 18 MG/DL Creatinine 0.78 MG/DL 1.26 MG/DL Random Glucose 90 MG/DL 129 MG/DL Total Protein 4.8 GM/DL Calcium Level 6.7 MG/DL 8.4 MG/DL Sodium Level 145 MEQ/L 139 MEQ/L Potassium Level 3.3 MEQ/L 3.8 MEQ/L Chloride Level 114 MEQ/L 104 MEQ/L Carbon Dioxide Level 25.2 MEQ/L 26.9 MEQ/L Anion Gap 6 MEQ/L 8 MEQ/L Estimat Glomerular Filtration Rate 113 ML/MIN 65 ML/MIN Protein Corrected Calcium 7.9 MG/DL Magnesium Level 2.4 MG/DL Imaging Last Impressions Chest X-Ray 04/15/17 0935 Signed Impressions: Service Date/Time: Saturday, April 15, 2017 09:57 - CONCLUSION: No acute disease. Alexsander Wong MD Abdomen/Pelvis CT 04/15/17 0000 Signed Impressions: Service Date/Time: Saturday, April 15, 2017 14:03 - CONCLUSION: Significant improvement in the abnormal small bowel right lower quadrant Focal loop of small bowel in the left upper quadrant that is not abnormal. This would be an unusual appearance for peristalsis. Correlation is suggested. Juan Jose Will MD FACR Abdomen X-Ray 04/15/17 0000 Signed Impressions: Service Date/Time: Saturday, April 15, 2017 10:01 - CONCLUSION: No acute disease. Alexsander Wong MD Objective Remarks GENERAL: This is a well-nourished, well-developed patient, in no apparent distress. SKIN: No rashes, ecchymoses or lesions. Cool and dry. CARDIOVASCULAR: Regular rate and rhythm without murmurs, gallops, or rubs. RESPIRATORY: Clear to auscultation. Breath sounds equal bilaterally. No wheezes , rales, or rhonchi. GASTROINTESTINAL: Abdomen soft, nontender, nondistended. No guarding. NEUROLOGICAL: Awake and alert. no focal deficits. Motor and sensory grossly within normal limits. Five out of 5 muscle strength in all muscle groups. Normal speech. A/P Problem List: (1) Crohn disease ICD Codes: K50.90 - Crohn's disease, unspecified, without complications Plan: - Crohn's disease involving the terminal ileum - 37 y/o WM with Crohn's disease. He was diagnosed in 2011. - In the past he has been on Pentasa, Asacol and Entocort as well as prednisone at various times for his Crohn's - over the last 3 years has been controlling his symptoms with his diet and supplements and had been symptom free up until March 2016 he started having symptoms again. He feels that his diet is a big factor in controlling his symptoms. - Pt was hospitalized in October 2016 at for Crohn's flare and was treated with steroids at that time with improvement. - For the last month pt has been experiencing intermittent abdominal pain & loose stools with some bloody stools - CT scan of the abd/pelvis (04/04/17) revealed an abnormal 6-7cm segment of distal small bowel at the level of the terminal ileum with marked bowel wall thickening and upstream bowel distension. - Pt was readmitted at [place] 04/04 - 04/07/17. - Pt was treated with IV solumedrol then converted to PO prednisone. - Despite PO prednisone pt again developed recurrent abdominal pain - (04/14/17) Dr. Maxwell request for direct admission to the medical team - repeat CT abd/pelvis (04/15/17) reveals significant improvement in the abnormal small bowel right lower quadrant focal loop of small bowel in the left upper quadrant that is not abnormal - appreciate GI input recommend flush out colon with Miralax and Dulcolax, treat for gastritis and Protonix -Solumedrol to 60 mg IV daily - tolerating PO intake with mild burning after eating - Appreciate GI input plan for EGD and colonoscopy in AM DVT prophylaxis SCDs Assessment and Plan Patient examined. Assessment and plan formulated with Zahida Reed PA-C. I agree with the above.' Chrons Flare egd/colon in AM Yajaira Reed Apr 18, 2017 10:53 Anish Valdovinos MD Apr 18, 2017 11:51
--- NOTE | 2017-04-18 11:14 | HHI.GIFU ---
Subjective Remarks Up in chair. Feeling better, but complains of burning epigastric/mid abdominal pain every time he tries to eat. States he had multiple bowel movements yesterday and feels better since he had multiple bowel movements. Objective Vitals I&O Vital Signs Date Time Temp Pulse Resp B/P (MAP) Pulse Ox O2 Delivery O2 Flow Rate FiO2 04/18/17 08:00 98.0 62 16 155/63 (93) 99 04/18/17 04:10 97.3 45 16 93/50 (64) 99 04/17/17 23:45 97.8 45 16 113/60 (77) 98 04/17/17 20:30 98.5 50 16 113/71 (85) 98 04/17/17 16:00 98.4 50 18 120/71 (87) 94 04/17/17 12:00 97.6 47 18 132/67 (88) 95 I/O 04/17/17 04/17/17 04/17/17 04/18/17 04/18/17 04/18/17 07:00 15:00 23:00 07:00 15:00 23:00 Intake Total 720 ml 400 ml 954 ml 1003 ml Balance 720 ml 400 ml 954 ml 1003 ml Intake Oral 720 ml 400 ml 480 ml 240 ml IV Total 474 ml 763 ml # Voids 4 2 2 2 # Bowel Movements 3 0 0 0 Imaging Last Impressions Chest X-Ray 04/15/17 0935 Signed Impressions: Service Date/Time: Saturday, April 15, 2017 09:57 - CONCLUSION: No acute disease. Alexsander Wong MD Abdomen/Pelvis CT 04/15/17 0000 Signed Impressions: Service Date/Time: Saturday, April 15, 2017 14:03 - CONCLUSION: Significant improvement in the abnormal small bowel right lower quadrant Focal loop of small bowel in the left upper quadrant that is not abnormal. This would be an unusual appearance for peristalsis. Correlation is suggested. Juan Jose Will MD FACR Abdomen X-Ray 04/15/17 0000 Signed Impressions: Service Date/Time: Saturday, April 15, 2017 10:01 - CONCLUSION: No acute disease. Alexsander Wong MD Physical Exam HEENT: Normocephalic; atraumatic; no jaundice. CHEST: CTA CARDIAC: RRR ABDOMEN: Soft, nondistended, nontender; no hepatosplenomegaly; bowel sounds are present in all four quadrants. EXTREMITIES: No clubbing, cyanosis, or edema. SKIN: Normal; no rash; no jaundice. AUTO SERVICE ADVISOR: No focal deficits; alert and oriented times three. Assessment and Plan Plan Impression: -Crohn's disease of terminal ileum. CT Scan abdomen and pelvis with IV contrast (04/15/17)----> Significant improvement in the abnormal small bowel right lower quadrant. Focal loop of small bowel in the left upper quadrant that is not abnormal. This would be an unusual appearance for peristalsis. Correlation is suggested. Solumedrol. Feeling better after Miralax and multiple bowel movements. However, now having burning epigastric/mid abdominal pain after any po intake. -Gastritis, possible GERD with early satiety, bloating. PPI PLAN: - Plan for egd/colonoscopy - Obtain consents - Clear liquids - NPO after MN - Magnesium Citrate - PPI - Further recommendations to follow based on results of above - Pt seen and examined by Dr. Islas and myself and this note is written on his behalf Brinda Sexton Apr 18, 2017 11:13
[2017-04-18 12:00] VITALS: BP 116/74; PULSE 64; RESP 16; TEMP 98.4; O2SAT 97
[2017-04-18 16:00] VITALS: BP_SYST 112; BP_SYST 138; BP_DIAS 64; BP_DIAS 72; PULSE 102; PULSE 57; RESP 16; TEMP 97.9; TEMP 98.7; O2SAT 95; O2SAT 98
[2017-04-18] MEDS ORDERED: MAGNESIUM CITRATE SOLN 300 ML BTL PO ONE ×2 (17:00→19:00)
[2017-04-18 20:15] VITALS: BP 114/67; PULSE 52; RESP 16; TEMP 98.3; O2SAT 98
[2017-04-18] MEDS ORDERED: SODIUM CHLORID 0.9% 500 ML IV PRN (21:15)
[2017-04-18] MEDS ORDERED: CHLORHEXIDINE GLUCONATE 2 % 1 PACK (2 CLOTHS) TOPICAL PRN (21:15)
[2017-04-18] MEDS ORDERED: POVIDONE IODINE 5% (ANTISEPSIS KIT) 4 APPLICATIONS EACH NARE PRN (21:15)
[2017-04-18] MEDS ORDERED: INSULIN HUMAN REGULAR 1,000 UNITS/10 ML VIAL SQ PRN (21:15)
[2017-04-18] MEDS ORDERED: LACTATED RINGER'S 1000 ML IV PRN (21:15)
[2017-04-18] MEDS ORDERED: METOPROLOL TARTRATE 25 MG TAB PO PRN (21:15)
[2017-04-19 01:05] VITALS: BP 123/76; PULSE 50; RESP 16; TEMP 97.1; O2SAT 98
[2017-04-19] MEDS: PANTOPRAZOLE SOD 40 MG DELAYED RELEASE TAB PO SCH ×2 (03:19→16:52)
[2017-04-19 04:40] VITALS: BP 116/65; PULSE 45; RESP 16; TEMP 96.7; O2SAT 98
[2017-04-19] MEDS ORDERED: PROPOFOL 200 MG/20 ML AMP IV ONE (09:44)
--- NOTE | 2017-04-19 09:52 | HHI.GIFU ---
Subjective Remarks EGD with biopsy of duodenum and gastric antrum and colonoscopy with balloon dilatation of TI and biopsy performed No apparent complication. Will need CT abdomen and pelvis without contrast to make sure no perforation at dilatation site. Objective Vitals I&O Vital Signs Date Time Temp Pulse Resp B/P (MAP) Pulse Ox O2 Delivery O2 Flow Rate FiO2 04/19/17 07:21 Room Air 04/19/17 04:40 96.7 45 16 116/65 (82) 98 04/19/17 01:05 97.1 50 16 123/76 (92) 98 04/18/17 20:15 98.3 52 16 114/67 (83) 98 04/18/17 16:00 97.9 57 16 112/64 (80) 95 04/18/17 12:00 98.4 64 16 116/74 (88) 97 I/O 04/18/17 04/18/17 04/18/17 04/19/17 04/19/17 04/19/17 07:00 15:00 23:00 07:00 15:00 23:00 Intake Total 1003 ml 720 ml 0 ml Balance 1003 ml 720 ml 0 ml Intake Oral 240 ml 720 ml 0 ml IV Total 763 ml # Voids 2 2 3 # Bowel Movements 0 0 3 Physical Exam HEENT: Normocephalic; atraumatic; no jaundice. CHEST: CTA CARDIAC: RRR ABDOMEN: Soft, nondistended, nontender; no hepatosplenomegaly; bowel sounds are present in all four quadrants. EXTREMITIES: No clubbing, cyanosis, or edema. SKIN: Normal; no rash; no jaundice. VENEER STAPLER: No focal deficits; alert and oriented times three. Assessment and Plan Plan Impression: -Crohn's disease of terminal ileum. CT Scan abdomen and pelvis with IV contrast (04/15/17)----> Significant improvement in the abnormal small bowel right lower quadrant. Focal loop of small bowel in the left upper quadrant that is not abnormal. This would be an unusual appearance for peristalsis. Correlation is suggested. Solumedrol. Feeling better after Miralax and multiple bowel movements. However, now having burning epigastric/mid abdominal pain after any po intake. -Gastritis, possible GERD with early satiety, bloating. PPI EGD and biopsy and colonoscopy with balloon dilatationi of TI performed. PLAN: - CT abdomen and pelvis today without contrast to rule out perforation - PPI - Further recommendations to follow based on results of above - Pt seen and examined by Dr. Islas and myself and this note is written on his behalf Bolivar Islas MD Apr 19, 2017 09:52
--- NOTE | 2017-04-19 10:57 | RADRPT ---
EXAM DATE/TIME: 04/19/2017 10:27 [facility] COMPARISON: No previous studies available for comparison. INDICATIONS : Post dilatation at terminal ileum. ORAL CONTRAST: No oral contrast ingested. RADIATION DOSE: 9.96 CTDIvol (mGy) MEDICAL HISTORY : Crohn's disease. SURGICAL HISTORY : None. ENCOUNTER: Initial ACUITY: 1 day PAIN SCALE: 0/10 LOCATION: abdomen TECHNIQUE: Volumetric scanning of the abdomen and pelvis was performed. Using automated exposure control and ad justment of the mA and/or kV according to patient size, radiation dose was kept as low as reasonably achievable to obtain optimal diagnostic quality images. DICOM format image data is available electro nically for review and comparison. FINDINGS: LOWER LUNGS: The visualized lower lungs are clear. LIVER: Homogeneous density without lesion. There is no dilation of the biliary tree. No calcified gallston es. SPLEEN: Normal size without lesion. PANCREAS: Within normal limits. KIDNEYS: Normal in size and shape. There is no mass, stone, or hydronephrosis. ADRENAL GLANDS: Within normal limits. VASCULAR: The patient has a duplicated IVC. No evidence of aortic aneurysm. BOWEL/MESENTERY: The stomach, small bowel, and colon demonstrate no acute abnormality. There is no free intraperitone al air or fluid. ABDOMINAL WALL: Within normal limits. RETROPERITONEUM: There is no lymphadenopathy. BLADDER: No wall thickening or mass. REPRODUCTIVE: Within normal limits. INGUINAL: There is no lymphadenopathy or hernia. MUSCULOSKELETAL: Dysplastic appearance of the vertebral elements at the lumbosacral junction. No acute bony findings. CONCLUSION: No acute intra-abdominal or pelvic process. Ronald Goncalves MD on April 19, 2017 at 10:50 Board Certified Radiologist. This report was verified electronically.
[2017-04-19] MEDS: SODIUM CHLORIDE 0.9% FLUSH 10 ML FLUSH IV FLUSH SCH ×2 (11:57→20:29)
[2017-04-19] MEDS: methylPREDNISolone SOD SUCC 125 MG/2 ML VIAL IV PUSH SCH (11:57)
[2017-04-19 12:00] VITALS: BP 119/74; PULSE 50; RESP 16; TEMP 97.2; O2SAT 99
--- NOTE | 2017-04-19 14:26 | HHI.PR ---
Subjective Remarks Pt just returned for EGD/colonoscopy. The brief report from the procedure noted that biopsies were taken from the stomach and duodenum and the TI was dilated Pt without any significant abdominal pain Objective Vitals Vital Signs Date Time Temp Pulse Resp B/P (MAP) Pulse Ox O2 Delivery O2 Flow Rate FiO2 04/19/17 10:19 98.0 44 20 114/65 (81) 98 04/19/17 09:55 98.0 54 20 105/66 (79) 98 04/19/17 07:21 Room Air 04/19/17 04:40 96.7 45 16 116/65 (82) 98 04/19/17 01:05 97.1 50 16 123/76 (92) 98 04/18/17 20:15 98.3 52 16 114/67 (83) 98 04/18/17 16:00 97.9 57 16 112/64 (80) 95 04/19/17 04/19/17 04/20/17 15:00 23:00 07:00 Intake Total 800 ml Balance 800 ml Other 800 ml Result Diagram: 04/17/17 1039 04/17/17 1039 Imaging Last Impressions Chest X-Ray 04/15/17 0935 Signed Impressions: Service Date/Time: Saturday, April 15, 2017 09:57 - CONCLUSION: No acute disease. Alexsander Wong MD Abdomen/Pelvis CT 04/15/17 0000 Signed Impressions: Service Date/Time: Saturday, April 15, 2017 14:03 - CONCLUSION: Significant improvement in the abnormal small bowel right lower quadrant Focal loop of small bowel in the left upper quadrant that is not abnormal. This would be an unusual appearance for peristalsis. Correlation is suggested. Juan Jose Will MD FACR Abdomen X-Ray 04/15/17 0000 Signed Impressions: Service Date/Time: Saturday, April 15, 2017 10:01 - CONCLUSION: No acute disease. Alexsander Wong MD Objective Remarks General: NAD, AAOx3 Chest: CTA Cardiac: Regular Abd: +BS, soft ND/NT Ext: No edema A/P Problem List: (1) Crohn disease ICD Codes: K50.90 - Crohn's disease, unspecified, without complications Plan: - Crohn's disease involving the terminal ileum - 37 y/o WM with Crohn's disease. He was diagnosed in 2011. - In the past he has been on Pentasa, Asacol and Entocort as well as prednisone at various times for his Crohn's - over the last 3 years has been controlling his symptoms with his diet and supplements and had been symptom free up until March 2016 he started having symptoms again. He feels that his diet is a big factor in controlling his symptoms. - Pt was hospitalized in October 2016 at for Crohn's flare and was treated with steroids at that time with improvement. - For the last month pt has been experiencing intermittent abdominal pain & loose stools with some bloody stools - CT scan of the abd/pelvis (04/04/17) revealed an abnormal 6-7cm segment of distal small bowel at the level of the terminal ileum with marked bowel wall thickening and upstream bowel distension. - Pt was readmitted at [place] 04/04 - 04/07/17. - Pt was treated with IV Solu-Medrol then converted to PO prednisone. - Despite PO prednisone pt again developed recurrent abdominal pain - (04/14/17) Dr. Maxwell request for direct admission to the medical team - Repeat CT abd/pelvis (04/15/17) reveals significant improvement in the abnormal small bowel right lower quadrant focal loop of small bowel in the left upper quadrant that is not abnormal - Appreciate GI input recommend flush out colon with Miralax and Dulcolax, treat for gastritis and Protonix - Solu-Medrol to 60 mg IV daily - Pt underwent EGD/colonoscopy (04/19/17), final procedure report not in the computer yet but pt had biopsies taken from the gastric antrum and duodenum and the TI was dilated - CT Abd/pelvis with no evidence of free air after the TI dilation - Diet advanced to regular diet per GI - DVT prophylaxis SCDs Assessment and Plan Patient examined. Assessment and plan formulated with Anuradha Lugo PA-C. I agree with the above. Crohn flare. will plan to d/c on steroid with taper per Dr Maxwell s/p TI dilation today of stricture bx of stomach/duodenum today cont ppi. resume diet plan for d/c home tomorrow. Anuradha Lugo Apr 19, 2017 14:26 Anish Valdovinos MD Apr 19, 2017 14:42
[2017-04-19 16:00] VITALS: BP 121/66; PULSE 67; RESP 16; TEMP 97.4; O2SAT 98
[2017-04-19 20:15] VITALS: BP 112/63; PULSE 66; RESP 16; TEMP 98.3; O2SAT 97
[2017-04-19 21:10] VITALS: O2SAT 98
[2017-04-20 00:15] VITALS: BP 114/69; PULSE 69; RESP 16; TEMP 97; O2SAT 95
[2017-04-20 04:00] VITALS: BP 99/56; PULSE 46; RESP 16; TEMP 97.3; O2SAT 98
[2017-04-20] MEDS: PANTOPRAZOLE SOD 40 MG DELAYED RELEASE TAB PO SCH (06:27)
[2017-04-20 08:00] VITALS: BP 122/73; PULSE 56; RESP 16; TEMP 96.5; O2SAT 99
[2017-04-20] MEDS: SODIUM CHLORIDE 0.9% FLUSH 10 ML FLUSH IV FLUSH SCH (09:09)
[2017-04-20] MEDS: methylPREDNISolone SOD SUCC 125 MG/2 ML VIAL IV PUSH SCH (09:09)
--- NOTE | 2017-04-20 10:54 | HHI.PR ---
Subjective Remarks tolerating diet bowels moving eager for d/c Objective Vitals nad heart reg lung cta abd s/nt ext no edema Vital Signs Date Time Temp Pulse Resp B/P (MAP) Pulse Ox O2 Delivery O2 Flow Rate FiO2 04/20/17 04:00 97.3 46 16 99/56 (70) 98 04/20/17 00:15 97.0 69 16 114/69 (84) 95 04/19/17 21:10 98 21 04/19/17 20:15 98.3 66 16 112/63 (79) 97 04/19/17 16:00 97.4 67 16 121/66 (84) 98 04/19/17 12:00 97.2 50 16 119/74 (89) 99 Result Diagram: 04/17/17 1039 04/17/17 1039 Imaging Last Impressions Chest X-Ray 04/15/17 0935 Signed Impressions: Service Date/Time: Saturday, April 15, 2017 09:57 - CONCLUSION: No acute disease. Alexsander Wong MD Abdomen/Pelvis CT 04/15/17 0000 Signed Impressions: Service Date/Time: Saturday, April 15, 2017 14:03 - CONCLUSION: Significant improvement in the abnormal small bowel right lower quadrant Focal loop of small bowel in the left upper quadrant that is not abnormal. This would be an unusual appearance for peristalsis. Correlation is suggested. Juan Jose Will MD FACR Abdomen X-Ray 04/15/17 0000 Signed Impressions: Service Date/Time: Saturday, April 15, 2017 10:01 - CONCLUSION: No acute disease. Alexsander Wong MD A/P Problem List: (1) Crohn disease ICD Codes: K50.90 - Crohn's disease, unspecified, without complications Plan: - Crohn's disease involving the terminal ileum - 37 y/o WM with Crohn's disease. He was diagnosed in 2011. - In the past he has been on Pentasa, Asacol and Entocort as well as prednisone at various times for his Crohn's - over the last 3 years has been controlling his symptoms with his diet and supplements and had been symptom free up until March 2016 he started having symptoms again. He feels that his diet is a big factor in controlling his symptoms. - Pt was hospitalized in October 2016 at for Crohn's flare and was treated with steroids at that time with improvement. - For the last month pt has been experiencing intermittent abdominal pain & loose stools with some bloody stools - CT scan of the abd/pelvis (04/04/17) revealed an abnormal 6-7cm segment of distal small bowel at the level of the terminal ileum with marked bowel wall thickening and upstream bowel distension. - Pt was readmitted at [place] 04/04 - 04/07/17. - Pt was treated with IV Solu-Medrol then converted to PO prednisone. - Despite PO prednisone pt again developed recurrent abdominal pain - (04/14/17) Dr. Maxwell request for direct admission to the medical team - Repeat CT abd/pelvis (04/15/17) reveals significant improvement in the abnormal small bowel right lower quadrant focal loop of small bowel in the left upper quadrant that is not abnormal - Appreciate GI input recommend flush out colon with Miralax and Dulcolax, treat for gastritis and Protonix - Solu-Medrol to 60 mg IV daily - Pt underwent EGD/colonoscopy (04/19/17), final procedure report not in the computer yet but pt had biopsies taken from the gastric antrum and duodenum and the TI was dilated - CT Abd/pelvis with no evidence of free air after the TI dilation - Diet advanced to regular diet per GI - DVT prophylaxis SCDs d/c home today. f/u GI for bx result and prednisone taper. call GI for official egd result. Anish Valdovinos MD Apr 20, 2017 10:54
[2017-04-20] MEDS ORDERED: PANT40TA3 PO (10:56)
[2017-04-20] MEDS ORDERED: PRED10 PO (10:59)
--- NOTE | 2017-04-20 10:59 | HHI.DCPOC ---
Discharge Care Plan Diagnosis: (1) Crohn disease Goals to Promote Your Health * To prevent worsening of your condition and complications * To maintain your health at the optimal level Directions to Meet Your Goals Take your medications as prescribed Follow your dietary instruction Follow activity as directed Keep your appointments as scheduled Take your immunizations and boosters as scheduled If your symptoms worsen call your PCP, if no PCP go to Urgent Care Center or Emergency Room Smoking is Dangerous to Your Health. Avoid second hand smoke Call the 24-hour hour crisis hotline for domestic abuse at Anish Valdovinos MD Apr 20, 2017 10:59
--- NOTE | 2017-05-21 14:47 | HHI.DS ---
Discharge Summary Admission Date Apr 14, 2017 at 21:05 Discharge Date: Apr 20, 2017 Admitting Diagnosis (1) Crohn disease Diagnosis: Principal ICD Codes: K50.90 - Crohn's disease, unspecified, without complications Brief History Mr. De Leon is a pleasant 37 y/o WM with Crohn's disease. He was diagnosed in 2011. In the past he has been on Pentasa, Asacol and Entocort as well as prednisone at various times for his Crohn's but over the last 3 years has been controlling his symptoms with his diet and supplements and had been symptom free up until March 2016 he started having symptoms again. He feels that his diet is a big factor in controlling his symptoms. Pt was hospitalized in October 2016 at for Crohn's flare and was treated with steroids at that time with improvement. Pt was readmitted at [place] 04/04 - 04/07. Pt had recurred abdominal pain with loose and bloody stools. CT scan of the abd/ pelvis (04/04/17) revealed an abnormal 6-7cm segment of distal small bowel at the level of the terminal ileum with marked bowel wall thickening and upstream bowel distension. Pt was treated with IV solumedrol then converted to PO prednisone. Yesterday (04/14/17) pt contacted Dr. Maxwell's office with c/o recurrent abdominal pain despite PO prednisone. Direct admission requested. Pt admitted to the medical service. Pt was started on IV fluids and IV steroids. Consult placed to Gastroenterology. Hospital Course (1) Crohn disease ICD Codes: K50.90 - Crohn's disease, unspecified, without complications Plan: - Crohn's disease involving the terminal ileum - 37 y/o WM with Crohn's disease. He was diagnosed in 2011. - In the past he has been on Pentasa, Asacol and Entocort as well as prednisone at various times for his Crohn's - over the last 3 years has been controlling his symptoms with his diet and supplements and had been symptom free up until March 2016 he started having symptoms again. He feels that his diet is a big factor in controlling his symptoms. - Pt was hospitalized in October 2016 at for Crohn's flare and was treated with steroids at that time with improvement. - For the last month pt has been experiencing intermittent abdominal pain & loose stools with some bloody stools - CT scan of the abd/pelvis (04/04/17) revealed an abnormal 6-7cm segment of distal small bowel at the level of the terminal ileum with marked bowel wall thickening and upstream bowel distension. - Pt was readmitted at [place] 04/04 - 04/07/17. - Pt was treated with IV Solu-Medrol then converted to PO prednisone. - Despite PO prednisone pt again developed recurrent abdominal pain - (04/14/17) Dr. Maxwell request for direct admission to the medical team - Repeat CT abd/pelvis (04/15/17) reveals significant improvement in the abnormal small bowel right lower quadrant focal loop of small bowel in the left upper quadrant that is not abnormal - Appreciate GI input recommend flush out colon with Miralax and Dulcolax, treat for gastritis and Protonix - Solu-Medrol to 60 mg IV daily - Pt underwent EGD/colonoscopy (04/19/17), final procedure report not in the computer yet but pt had biopsies taken from the gastric antrum and duodenum and the TI was dilated - CT Abd/pelvis with no evidence of free air after the TI dilation - Diet advanced to regular diet per GI - DVT prophylaxis SCDs d/c home today. f/u GI for bx result and prednisone taper. call GI for official egd result. Pt Condition on Discharge: Stable Discharge Disposition: Discharge Home Discharge Instructions DIET: Follow Instructions for: As Tolerated, No Restrictions Activities you can perform: Regular-No Restrictions Follow up Referrals: Gastroenterology - 2 Weeks with Purnima Maxwell MD New Medications: Prednisone (Prednisone) 10 Mg Tab 40 MG PO DAILY for Inflammation for 21 Days, TAB 0 Refills Pantoprazole (Pantoprazole) 40 Mg Tab 40 MG PO DAILY for Indigestion, #30 TAB 3 Refills Discontinued Medications: Dicyclomine (Dicyclomine) 20 Mg Tab 20 MG PO TID PRN for CRAMPING PAIN, #30 TAB Prednisone (Prednisone) 20 Mg Tab 60 MG PO DAILY for Crohn's, TAB 0 Refills Anish Valdovinos MD May 21, 2017 14:47
== END 2017-04-20 14:01 | disposition home or self-care (01) | DRG 387 ==
LOC: NEPHCDU 21:05 → N06B 04-16 13:16
PROVIDERS: ADMIT Hospitalist; ATTEND Hospitalist
PROC: 0D7B8ZZ Dilation of Ileum, Via Natural or Artificial Opening Endoscopic (ICD-10-PCS; 2017-04-19)
PROC: 0DBB8ZX Excision of Ileum, Via Natural or Artificial Opening Endoscopic, Diagnostic (ICD-10-PCS; 2017-04-19)
PROC: 0DB98ZX Excision of Duodenum, Via Natural or Artificial Opening Endoscopic, Diagnostic (ICD-10-PCS; principal; 2017-04-19 08:47)
PROC: 0DB78ZX Excision of Stomach, Pylorus, Via Natural or Artificial Opening Endoscopic, Diagnostic (ICD-10-PCS; 2017-04-19 08:47)
DX: K50.00 Crohn's disease of small intestine without complications (principal); K21.9 Gastro-esophageal reflux disease without esophagitis; K29.70 Gastritis, unspecified, without bleeding
CPT/HCPCS: 71010; 74000; 74176; 74177; 80048; 80053; 83735; 84155; 85025; 88305; 88312; C1726; J1170; J2930; J7030; Q9963; Q9967

== ENCOUNTER 2017-08-19 23:46 | Emergency (ER) | payer OTHER ==
[~2017-08-19] VITALS: Ht 182.9 cm; Wt 91.0 kg
[~2017-08-19 23:46] MED LIST changes: -DICY20TA10 PO; +PANT40TA3 PO; +PRED10 PO; -PRED20 PO
[2017-08-19 23:48] VITALS: BP 133/76; PULSE 53; RESP 16; TEMP 98.4; O2SAT 100
[2017-08-20] MEDS ORDERED: PRED2.5T PO (00:13)
[2017-08-20] MEDS ORDERED: SODIUM CHLOR 0.9% 1000 ML INJ 1,000 ML IV SCH (00:50)
[2017-08-20] MEDS ORDERED: FAMOTIDINE 20 MG/2 ML VIAL IV PUSH ONE (01:00)
[2017-08-20] MEDS ORDERED: MORPHINE SULFATE 4 MG/ML INJ IV PUSH ONE (01:00)
[2017-08-20] MEDS ORDERED: SODIUM CHLORIDE 0.9% FLUSH 10 ML FLUSH IV FLUSH PRN (01:00)
[2017-08-20] MEDS ORDERED: ONDANSETRON HCL 4 MG/2 ML VIAL IVP ONE (01:00)
[2017-08-20 01:21] LABS: AUTOMATED NEUTROPHIL # 4.4 TH/MM3 (1.8-7.7); BASOPHIL % 0.4 % (0.0-2.0); EOSINOPHIL # 0.2 TH/MM3 (0-0.4); EOSINOPHIL % 3.2 % (0.0-4.0); HEMATOCRIT 40.6 % (39.0-51.0); HEMOGLOBIN 13.6 GM/DL (13.0-17.0); LYMPH % 22.7 % (9.0-44.0); LYMPHOCYTE # 1.5 TH/MM3 (1.0-4.8); MEAN CELL VOLUME 89.6 FL (80.0-100.0); MEAN CORPUSCULAR HEMOGLOBIN 29.9 PG (27.0-34.0); MEAN CORPUSCULAR HGB CONC 33.4 % (32.0-36.0); MONO % 8.8 % (0.0-8.0); MONOCYTE # 0.6 TH/MM3 (0-0.9); NEUT % 64.9 % (16.0-70.0); PLATELET COUNT 224 TH/MM3 (150-450); RED BLOOD COUNT 4.53 MIL/MM3 (4.50-5.90); RED CELL DISTRIBUTION WIDTH 12.4 % (11.6-17.2); WHITE BLOOD COUNT 6.8 TH/MM3 (4.0-11.0)
[2017-08-20 01:34] LABS: ALBUMIN 3.3 GM/DL (3.4-5.0); ALT (GPT) 17 U/L (12-78); AST (GOT) 15 U/L (15-37); BICARBONATE 31.6 MEQ/L (21.0-32.0); BLOOD UREA NITROGEN 17 MG/DL (7-18); CALCIUM 8.3 MG/DL (8.5-10.1); CHLORIDE 105 MEQ/L (98-107); CREATININE 1.18 MG/DL (0.60-1.30); GLOMERULAR FILTRATION RATE 70 ML/MIN (>89); GLUCOSE,RANDOM 85 MG/DL (74-106); LIPASE 152 U/L (73-393); SODIUM (NA) 142 MEQ/L (136-145)
[2017-08-20 01:36] LABS: ALKALINE PHOSPHATASE 69 U/L (45-117); TOTAL BILIRUBIN ADULT 0.2 MG/DL (0.2-1.0)
[2017-08-20] MEDS ORDERED: MORPHINE SULFATE 2 MG/ML INJ IV PUSH ONE ×2 (01:45→05:15)
[2017-08-20] MEDS ORDERED: IOHEXOL 350 MG/ML 10 ML VIAL (for RAD DIAG) IVCONTRAST ONE (03:25)
[2017-08-20 03:37] VITALS: O2SAT 98
--- NOTE | 2017-08-20 03:52 | RADRPT ---
EXAM DATE/TIME: 08/20/2017 03:12 [facility] COMPARISON: CT ABDOMEN & PELVIS W CONTRAST, April 15, 2017, 14:03. INDICATIONS : Low mid abdominal pain with nausea and vomiting. History of Crohn's disease. IV CONTRAST: 95 cc Omnipaque 350 (iohexol) IV ORAL CONTRAST: Prescribed oral contrast ingested. RADIATION DOSE: 6.64 CTDIvol (mGy) MEDICAL HISTORY : Crohn's disease. SURGICAL HISTORY : None. ENCOUNTER: Initial ACUITY: 1 day PAIN SCALE: 7/10 LOCATION: Bilateral abdomen TECHNIQUE: Volumetric scanning of the abdomen and pelvis was performed. Using automated exposure control and ad justment of the mA and/or kV according to patient size, radiation dose was kept as low as reasonably achievable to obtain optimal diagnostic quality images. DICOM format image data is available electro nically for review and comparison. FINDINGS: LOWER LUNGS: Mild bilateral lower lobe atelectasis. LIVER: There is relative lack of hepatic vein visualization, likely related to phase of contrast enhancement as IVC below the renal veins is also non-opacified. Liver is otherwise homogeneous and within normal limits. SPLEEN: Normal size without lesion. PANCREAS: Within normal limits. KIDNEYS: Normal in size and shape. There is no mass, stone or hydronephrosis. ADRENAL GLANDS: Within normal limits. VASCULAR: There is no aortic aneurysm. Duplicated IVC. BOWEL/MESENTERY: There is marked circumferential wall thickening and mucosal enhancement of the terminal ileum. Abnorm al segment measures approximately 8 cm in length. There is dilatation of the ileum proximal to the ab normal terminal ileum segment. The dilated portion measures 6 cm in greatest diameter. Proximal small bowel is within normal limits. Colon is within normal limits. ABDOMINAL WALL: Within normal limits. RETROPERITONEUM: There is no lymphadenopathy. BLADDER: No wall thickening or mass. REPRODUCTIVE: Within normal limits. INGUINAL: There is no lymphadenopathy or hernia. 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 CONCLUSION: Markedly abnormal terminal ileum with severe circumferential wall thickening and the mucosal enhancem ent. This segment has a similar appearance to the prior study of 04/15/2017 and is consistent with the patient's history of Crohn's disease. There has been an increase in severity of dilatation of the sma ll bowel just proximal to this. Findings suggest stricture/partial obstruction. Markos Lock MD on August 20, 2017 at 3:37 Board Certified Radiologist. This report was verified electronically.
[2017-08-20] MEDS ORDERED: methylPREDNISolone SOD SUCC 125 MG/2 ML VIAL IV PUSH ONE (04:15)
[2017-08-20 04:41] LABS: BILIRUBIN, URINE NEG (NEG); BLOOD, URINE NEG (NEG); GLUCOSE,URINE NEG (NEG); KETONE, URINE NEG (NEG); MUCUS URINE FEW /lpf (OCC); NITRITE,URINE NEG (NEG); PH, URINE 5.5 (5.0-8.5); URINE COLOR YELLOW (YELLW/STRAW); URINE LEUKOCYTE ESTERASE NEG (NEG)
[2017-08-20 05:30] VITALS: RESP 20
--- NOTE | 2017-08-20 06:47 | PD ---
HPI . GI complaint Chief Complaint: GI Complaint Time Seen by Provider: 00:26 Travel History International Travel<30 days: No Contact w/Intl Traveler<30days: No Traveled to known affect area: No History of Present Illness HPI 37-year-old male history of Crohn's disease, complains of acute exacerbation of same. Patient notes increased pain tenderness swelling lower aspects of his abdomen for the past day. Patient has been vomiting as well. Patient states her under these acute exacerbations he may or may not become admitted to hospital. On CAT scan and also his response to steroids. Patient denies any blood via rectum, denies any fever PFSH Past Medical History Narrative Medical Past medical history reviewed Asthma: No Autoimmune Disease: Yes Blood Disorders: No Anxiety: No Depression: No Heart Rhythm Problems: No Cancer: No Cardiovascular Problems: No High Cholesterol: No Chemotherapy: No Chest Pain: No Congestive Heart Failure: No COPD: No Diabetes: No Diminished Hearing: No Endocrine: No Gastrointestinal Disorders: Yes (crohns with strictures) Glaucoma: No Genitourinary: No Hepatitis: No Hiatal Hernia: No Hypertension: No Immune Disorder: Yes Musculoskeletal: No Neurologic: No Psychiatric: No Reproductive: No Respiratory: No Radiation Therapy: No Sleep Apnea: No Thyroid Disease: No Ulcer: Yes Past Surgical History Other Surgery: Yes (bilateral acl knee surgeries) Social History Alcohol Use: Yes (RARELY) Tobacco Use: No Substance Use: No Allergies-Medications (Allergen,Severity, Reaction): Coded Allergies: No Known Allergies (Verified Adverse Reaction, Unknown, 08/20/17) Reported Meds & Prescriptions Reported Meds & Active Scripts Active Reported Prednisone 2.5 Mg Tab 2.5 Mg PO DAILY Narrative Medication Allergies medications reviewed Review of Systems Except as stated in HPI: all other systems reviewed are Neg General / Constitutional: No: Fever Eyes: No: Visual changes HENT: No: Headaches Cardiovascular: No: Chest Pain or Discomfort Respiratory: No: Shortness of Breath Gastrointestinal: Positive: Nausea, Vomiting, Abdominal Pain, No: Diarrhea, Hematemesis, Hematochezia Genitourinary: No: Dysuria Musculoskeletal: No: Pain Skin: No Rash Neurologic: No: Weakness Psychiatric: No: Depression Endocrine: No: Polydipsia Hematologic/Lymphatic: No: Easy Bruising Physical Exam Narrative GENERAL: Awake and alert oriented 3 no acute distress SKIN: Warm and dry. Color is normal no diaphoresis cyanosis or pallor HEAD: Atraumatic. Normocephalic. EYES: Pupils equal and round. No scleral icterus. No injection or drainage. ENT: No nasal bleeding or discharge. Mucous membranes pink and moist. NECK: Trachea midline. No JVD. Supple for range of motion CARDIOVASCULAR: Regular rate and rhythm. S1-S2 no murmurs or gallops RESPIRATORY: No accessory muscle use. Clear to auscultation. Breath sounds equal bilaterally. GASTROINTESTINAL: Abdomen soft, tender diffusely lower no rebound or guarding nondistended. Hepatic and splenic margins not palpable. MUSCULOSKELETAL: Extremities without clubbing, cyanosis, or edema. No obvious deformities. NEUROLOGICAL: Awake and alert. No obvious cranial nerve deficits. Motor grossly within normal limits. Five out of 5 muscle strength in the arms and legs. Normal speech. PSYCHIATRIC: Appropriate mood and affect; insight and judgment normal. Data Data Last Documented VS Vital Signs Date Time Temp Pulse Resp B/P (MAP) Pulse Ox O2 Delivery O2 Flow Rate FiO2 08/20/17 05:30 20 08/20/17 03:37 98 08/19/17 23:48 98.4 53 Room Air Orders Orders Complete Blood Count With Diff (08/20/17 00:50) Comprehensive Metabolic Panel (08/20/17 00:50) Lipase (08/20/17 00:50) Urinalysis - C+S If Indicated (08/20/17 00:50) Ct Abd/Pel W Iv Contrast(Rout) (08/20/17 00:50) Iv Access Insert/Monitor (08/20/17 00:50) Ecg Monitoring (08/20/17 00:50) Oximetry (08/20/17 00:50) Ondansetron Inj (Zofran Inj) (08/20/17 01:00) Sodium Chlor 0.9% 1000 Ml Inj (Ns 1000 M (08/20/17 00:50) Sodium Chloride 0.9% Flush (Ns Flush) (08/20/17 01:00) Famotidine Inj (Pepcid Inj) (08/20/17 01:00) Oral Contrast - Adult (08/20/17 00:55) Morphine Inj (Morphine Inj) (08/20/17 01:45) Iohexol 350 Inj (Omnipaque 350 Inj) (08/20/17 03:25) Methylprednisolone So Succ Inj (Solumedr (08/20/17 04:15) Morphine Inj (Morphine Inj) (08/20/17 05:15) Labs Laboratory Tests Test 08/20/17 01:00 08/20/17 04:28 White Blood Count 6.8 TH/MM3 Red Blood Count 4.53 MIL/MM3 Hemoglobin 13.6 GM/DL Hematocrit 40.6 % Mean Corpuscular Volume 89.6 FL Mean Corpuscular Hemoglobin 29.9 PG Mean Corpuscular Hemoglobin Concent 33.4 % Red Cell Distribution Width 12.4 % Platelet Count 224 TH/MM3 Mean Platelet Volume 9.0 FL Neutrophils (%) (Auto) 64.9 % Lymphocytes (%) (Auto) 22.7 % Monocytes (%) (Auto) 8.8 % Eosinophils (%) (Auto) 3.2 % Basophils (%) (Auto) 0.4 % Neutrophils # (Auto) 4.4 TH/MM3 Lymphocytes # (Auto) 1.5 TH/MM3 Monocytes # (Auto) 0.6 TH/MM3 Eosinophils # (Auto) 0.2 TH/MM3 Basophils # (Auto) 0.0 TH/MM3 CBC Comment DIFF FINAL Differential Comment Blood Urea Nitrogen 17 MG/DL Creatinine 1.18 MG/DL Random Glucose 85 MG/DL Total Protein 7.0 GM/DL Albumin 3.3 GM/DL Calcium Level 8.3 MG/DL Alkaline Phosphatase 69 U/L Aspartate Amino Transf (AST/SGOT) 15 U/L Alanine Aminotransferase (ALT/SGPT) 17 U/L Total Bilirubin 0.2 MG/DL Sodium Level 142 MEQ/L Potassium Level 3.8 MEQ/L Chloride Level 105 MEQ/L Carbon Dioxide Level 31.6 MEQ/L Anion Gap 5 MEQ/L Estimat Glomerular Filtration Rate 70 ML/MIN Lipase 152 U/L Urine Color YELLOW Urine Turbidity CLEAR Urine pH 5.5 Urine Specific [place] 1.022 Urine Protein NEG mg/dL Urine Glucose (UA) NEG mg/dL Urine Ketones NEG mg/dL Urine Occult Blood NEG Urine Nitrite NEG Urine Bilirubin NEG Urine Urobilinogen LESS THAN 2.0 MG/DL Urine Leukocyte Esterase NEG Urine WBC LESS THAN 1 /hpf Urine Mucus FEW /lpf Microscopic Urinalysis Comment CULT NOT INDICATED MDM Medical Decision Making Medical Screen Exam Complete: Yes Emergency Medical Condition: Yes Medical Record Reviewed: Yes Differential Diagnosis Crohn's exacerbation, abdominal pain Narrative Course Patient is mildly elevated white blood cell count. CT abdomen and pelvis shows exacerbation of Crohn's with diffuse circumferential wall thickening of terminal ileum and moderate grade obstruction. Patient feels somewhat improved after 2 rounds pain medications IV fluids and steroids. 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 Vlad munguia. Currently patient is comfortable with being discharged and following up as outpatient. Diagnosis Primary Impression: Crohns disease Qualified Codes: K50.019 - Crohn's disease of small intestine with unspecified complications Patient Instructions: Crohn Disease (ED), General Instructions Additional Instructions: Medications steroids and anti-vomiting medications as prescribed. Follow-up with Dr. Maxwell to school librarian. Return for worsening Scripts Methylprednisolone Dosepak (Medrol Dosepak) 4 Mg Dspk 4 MG PO DIRECTED, #1 DSPK 0 Refills Per Pharmacist direction Prov: Christo Fernandez MD 08/20/17 Prednisone (Prednisone) 20 Mg Tab 40 MG PO DAILY, #10 TAB 0 Refills Take 40 mg (2 tablets) daily for 5 days Prov: Christo Fernandez MD 08/20/17 Hydrocodone-Acetaminophen (Vicodin) 5-300 Mg Tab 1 TAB PO Q4H Y for PAIN, #30 TAB 0 Refills Prov: Christo Fernandez MD 08/20/17 Ondansetron Odt (Zofran Odt) 4 Mg Tab 4 MG SL Q8HR Y for Nausea/Vomiting, #30 TAB 0 Refills Prov: Christo Fernandez MD 08/20/17 Disposition: 01 DISCHARGE HOME Condition: Stable Christo Fernandez MD Aug 20, 2017 06:47
[2017-08-20] MEDS ORDERED: HYDR-3111 PO (06:56)
[2017-08-20] MEDS ORDERED: ZOFR4TAB3 SL (06:56)
[2017-08-20] MEDS ORDERED: PRED20 PO (06:56)
[2017-08-20] MEDS ORDERED: MEDR4PAK PO (06:56)
== END 2017-08-20 07:02 | disposition home or self-care (01) ==
LOC: NEPE 23:46
DX: K50.019 Crohn's disease of small intestine with unspecified complications (principal)
CPT/HCPCS: 74177; 80053; 81001; 83690; 85025; 96361; 96374; 96375; 96376; 99285; J2270; J2405; J2930; J7030; Q9967

== ENCOUNTER 2018-01-14 08:18 | Inpatient (IN) | payer OTHER ==
[~2018-01-14] VITALS: Ht 182.9 cm; Wt 95.0 kg
[~2018-01-14 08:18] MED LIST changes: +HYDR-3111 PO; +MEDR4PAK PO; -PANT40TA3 PO; -PRED10 PO; +PRED2.5T PO; +PRED20 PO; +ZOFR4TAB3 SL
[2018-01-14 08:25] VITALS: BP 127/82; PULSE 55; RESP 16; TEMP 98.6; O2SAT 99
[2018-01-14] MEDS ORDERED: PRED10 PO (08:43)
[2018-01-14] MEDS ORDERED: SODIUM CHLORIDE 0.9% FLUSH 10 ML FLUSH IV FLUSH PRN ×2 (09:15→16:30)
[2018-01-14 09:45] LABS: AUTOMATED NEUTROPHIL # 5.2 TH/MM3 (1.8-7.7); BASOPHIL % 0.2 % (0.0-2.0); EOSINOPHIL # 0.1 TH/MM3 (0-0.4); EOSINOPHIL % 1.3 % (0.0-4.0); HEMATOCRIT 39.6 % (39.0-51.0); HEMOGLOBIN 13.7 GM/DL (13.0-17.0); LYMPH % 18.2 % (9.0-44.0); LYMPHOCYTE # 1.3 TH/MM3 (1.0-4.8); MEAN CELL VOLUME 87.4 FL (80.0-100.0); MEAN CORPUSCULAR HEMOGLOBIN 30.3 PG (27.0-34.0); MEAN CORPUSCULAR HGB CONC 34.6 % (32.0-36.0); MEAN PLATELET VOLUME 8.8 FL (7.0-11.0); MONO % 8.4 % (0.0-8.0); MONOCYTE # 0.6 TH/MM3 (0-0.9); NEUT % 71.9 % (16.0-70.0); PLATELET COUNT 221 TH/MM3 (150-450); RED BLOOD COUNT 4.54 MIL/MM3 (4.50-5.90); RED CELL DISTRIBUTION WIDTH 13.3 % (11.6-17.2); WHITE BLOOD COUNT 7.3 TH/MM3 (4.0-11.0)
[2018-01-14] MEDS ORDERED: predniSONE 20 MG TAB PO ONE (09:45)
[2018-01-14] MEDS ORDERED: FAMOTIDINE 20 MG TAB PO ONE (09:45)
[2018-01-14] MEDS ORDERED: ONDANSETRON ODT 4 MG TAB PO ONE (09:45)
[2018-01-14] MEDS ORDERED: DICYCLOMINE HCL 10 MG CAP PO ONE (09:45)
[2018-01-14] MEDS ORDERED: KETOROLAC TROMETHAMINE 30 MG/ML (IVP) VIAL IV PUSH ONE (09:45)
--- NOTE | 2018-01-14 10:04 | PD ---
HPI Chief Complaint: GI Complaint Time Seen by Provider: 09:29 Travel History International Travel<30 days: No Contact w/Intl Traveler<30days: No Traveled to known affect area: No History of Present Illness HPI Patient 37-year-old male with a history of Crohn's disease presents emergency department with abdominal cramping and distention for the past day and half. States he took some pain medicine at home and is not relieving his symptoms. Mild nausea without vomiting, no diarrhea no blood in stools no darkening in the stools. No fevers. States his symptoms are moderate, gradually worsening, over the past few days, context as above per [facility] Past Medical History Asthma: No Autoimmune Disease: Yes Blood Disorders: No Anxiety: No Depression: No Heart Rhythm Problems: No Cancer: No Cardiovascular Problems: No High Cholesterol: No Chemotherapy: No Chest Pain: No Congestive Heart Failure: No COPD: No Diabetes: No Diminished Hearing: No Endocrine: No Gastrointestinal Disorders: Yes (crohns with strictures) Glaucoma: No Genitourinary: No Hepatitis: No Hiatal Hernia: No Hypertension: No Immune Disorder: Yes (crohns) Musculoskeletal: No Neurologic: No Psychiatric: No Reproductive: No Respiratory: No Radiation Therapy: No Sleep Apnea: No Thyroid Disease: No Ulcer: Yes Influenza Vaccination: No Past Surgical History Other Surgery: Yes (bilateral acl knee surgeries) Social History Alcohol Use: Yes (RARELY) Tobacco Use: No Substance Use: No (uses medical marijuana) Allergies-Medications (Allergen,Severity, Reaction): Coded Allergies: No Known Allergies (Verified Adverse Reaction, Unknown, 01/14/18) Reported Meds & Prescriptions Reported Meds & Active Scripts Active Zofran Odt (Ondansetron Odt) 4 Mg Tab 4 Mg SL Q6HR PRN Prednisone 20 Mg Tab 60 Mg PO DAILY 5 Days Bentyl (Dicyclomine HCl) 10 Mg Cap 10 Mg PO TID PRN Vicodin (Hydrocodone-Acetaminophen) 5-300 Mg Tab 1 Tab PO Q4H PRN Reported Prednisone 10 Mg Tab 10 Mg PO DAILY Review of Systems Except as stated in HPI: all other systems reviewed are Neg Physical Exam Narrative GENERAL: Well-developed well-nourished in no obvious distress, he sitting upright in a stretcher using a tablet computer peer SKIN: Focused skin assessment warm/dry. HEAD: Atraumatic. Normocephalic. EYES: Pupils equal and round. No scleral icterus. No injection or drainage. ENT: No nasal bleeding or discharge. Mucous membranes pink and moist. NECK: Trachea midline. No JVD. CARDIOVASCULAR: Regular rate and rhythm. No murmur appreciated. RESPIRATORY: No accessory muscle use. Clear to auscultation. Breath sounds equal bilaterally. GASTROINTESTINAL: Abdomen soft nontender nondistended. No rebound no percussive tenderness, no CVA tenderness. MUSCULOSKELETAL: No obvious deformities. No clubbing. No cyanosis. No edema. NEUROLOGICAL: Awake and alert. No obvious cranial nerve deficits. Motor grossly within normal limits. Normal speech. PSYCHIATRIC: Appropriate mood and affect; insight and judgment normal. Data Data Last Documented VS Vital Signs Date Time Temp Pulse Resp B/P (MAP) Pulse Ox O2 Delivery O2 Flow Rate FiO2 01/14/18 14:47 56 17 112/62 (79) 98 Room Air 01/14/18 08:25 98.6 Orders Orders Complete Blood Count With Diff (01/14/18 09:15) Comprehensive Metabolic Panel (01/14/18 09:15) Lipase (01/14/18 09:15) Iv Access Insert/Monitor (01/14/18 09:15) Ecg Monitoring (01/14/18 09:15) Oximetry (01/14/18 09:15) Sodium Chloride 0.9% Flush (Ns Flush) (01/14/18 09:15) Prednisone (Deltasone) (01/14/18 09:45) Dicyclomine (Bentyl) (01/14/18 09:45) Ondansetron Odt (Zofran Odt) (01/14/18 09:45) Ketorolac Inj (Toradol Inj) (01/14/18 09:45) Famotidine (Pepcid) (01/14/18 09:45) Ct Abd/Pel W Iv Contrast(Rout) (01/14/18 ) Iohexol 350 Inj (Omnipaque 350 Inj) (01/14/18 14:00) Consult Gastroenterology (01/14/18 ) (Hub Use Only)Inp Phy Cons/Ref (01/14/18 ) Admit Order (Ed Use Only) (01/14/18 ) Labs Laboratory Tests Test 01/14/18 09:15 White Blood Count 7.3 TH/MM3 Red Blood Count 4.54 MIL/MM3 Hemoglobin 13.7 GM/DL Hematocrit 39.6 % Mean Corpuscular Volume 87.4 FL Mean Corpuscular Hemoglobin 30.3 PG Mean Corpuscular Hemoglobin Concent 34.6 % Red Cell Distribution Width 13.3 % Platelet Count 221 TH/MM3 Mean Platelet Volume 8.8 FL Neutrophils (%) (Auto) 71.9 % Lymphocytes (%) (Auto) 18.2 % Monocytes (%) (Auto) 8.4 % Eosinophils (%) (Auto) 1.3 % Basophils (%) (Auto) 0.2 % Neutrophils # (Auto) 5.2 TH/MM3 Lymphocytes # (Auto) 1.3 TH/MM3 Monocytes # (Auto) 0.6 TH/MM3 Eosinophils # (Auto) 0.1 TH/MM3 Basophils # (Auto) 0.0 TH/MM3 CBC Comment DIFF FINAL Differential Comment Blood Urea Nitrogen 13 MG/DL Creatinine 1.12 MG/DL Random Glucose 93 MG/DL Total Protein 6.9 GM/DL Albumin 3.3 GM/DL Calcium Level 8.6 MG/DL Alkaline Phosphatase 57 U/L Aspartate Amino Transf (AST/SGOT) 23 U/L Alanine Aminotransferase (ALT/SGPT) 26 U/L Total Bilirubin 0.5 MG/DL Sodium Level 141 MEQ/L Potassium Level 4.5 MEQ/L Chloride Level 107 MEQ/L Carbon Dioxide Level 26.4 MEQ/L Anion Gap 8 MEQ/L Estimat Glomerular Filtration Rate 75 ML/MIN Lipase 96 U/L MDM Medical Decision Making Medical Screen Exam Complete: Yes Emergency Medical Condition: Yes Differential Diagnosis Crohn's flare, acute abdomen unlikely, dehydration unlikely. Diverticulitis, appendicitis unlikely. Narrative Course Patient room to the emergency department, his abdomen is benign, has a history of Crohn's disease. He appears fairly comfortable sitting upright in a stretcher playing on a tablet computer. Basic labs are reassuring, he was given Toradol and Bentyl in his abdomen remains benign but he is still complaining of some distention. He states that usually when he comes in the emergency department he gets 2 doses of pain medicine is observed for several hours and always gets a CAT scan. I do not think that a CAT scan has been warranted at this point, looking through his previous CAT scans he has had some inflammation of small intestines in the past but never had to have any surgical intervention. His abdomen certainly is not surgical today. I have offered him a CAT scan nonetheless but after citing the risks of cancer he declines. He would like to be observed in the emergency department for longer as he fears that when his Toradol wears off his pain will come back. The patient then called his GI doctor Dr. Reid to who called her partner Dr. Aparicio, I have been in touch with Dr. Aparicio, he states that Dr. Maxwell would like the patient to be admitted to the hospital. CT the abdomen was added, the patient continues to appear well while in the emergency department, he did not require any additional pain medicine. CT abdomen shows: Last 24 hours Impressions Abdomen/Pelvis CT 01/14/18 0000 Signed Impressions: CONCLUSION: Persistent versus recurrent severe Crohn's involvement of the termi nal ileum and with associated luminal narrowing and bowel obstruction. Small as cites. No evidence of perforation. Diagnosis Primary Impression: Abdominal pain Referrals: Purnima Maxwell MD Med/Other Pt SpecificInfo: Prescription(s) given Scripts Ondansetron Odt (Zofran Odt) 4 Mg Tab 4 MG SL Q6HR Y for Nausea/Vomiting, #30 TAB 0 Refills Prov: Glynn Donaldson MD 01/14/18 Prednisone (Prednisone) 20 Mg Tab 60 MG PO DAILY for 5 Days, #15 TAB 0 Refills Prov: Glynn Donaldson MD 01/14/18 Dicyclomine (Bentyl) 10 Mg Cap 10 MG PO TID Y for ABDOMINAL CRAMPING, #20 CAP 0 Refills Prov: Glynn Donaldson MD 01/14/18 Disposition: 01 DISCHARGE HOME Condition: Stable Glynn Donaldson MD Jan 14, 2018 10:04
[2018-01-14 10:14] LABS: ALKALINE PHOSPHATASE 57 U/L (45-117); TOTAL BILIRUBIN ADULT 0.5 MG/DL (0.2-1.0); TOTAL PROTEIN 6.9 GM/DL (6.4-8.2)
[2018-01-14 10:30] LABS: ALBUMIN 3.3 GM/DL (3.4-5.0); ALT (GPT) 26 U/L (12-78); AST (GOT) 23 U/L (15-37); BICARBONATE 26.4 MEQ/L (21.0-32.0); BLOOD UREA NITROGEN 13 MG/DL (7-18); CALCIUM 8.6 MG/DL (8.5-10.1); CHLORIDE 107 MEQ/L (98-107); CREATININE 1.12 MG/DL (0.60-1.30); GLOMERULAR FILTRATION RATE 75 ML/MIN (>89); GLUCOSE,RANDOM 93 MG/DL (74-106); SODIUM (NA) 141 MEQ/L (136-145)
[2018-01-14] MEDS ORDERED: DICY10 PO (11:33)
[2018-01-14] MEDS ORDERED: ZOFR4TAB3 SL (11:33)
[2018-01-14] MEDS ORDERED: PRED20 PO (11:33)
[2018-01-14] MEDS ORDERED: IOHEXOL 350 MG/ML 10 ML VIAL (for RAD DIAG) IVCONTRAST ONE (14:00)
--- NOTE | 2018-01-14 14:25 | RADRPT ---
EXAM DATE: 01/14/2018 2:09 PM EDT AGE/SEX: 37 years / Male INDICATIONS: Diffuse abdomen pain and distention for two days. CLINICAL DATA: This is the patient's initial encounter. Patient reports that signs and symptoms have been present for 2 days and indicates a pain score of 7/10. MEDICAL/SURGICAL HISTORY: Crohn's disease. None. ORAL CONTRAST: No oral contrast ingested. RADIATION DOSE: 6.64 CTDI (mGy) COMPARISON: [facility] [place], CT ABDOMEN & PELVIS W CONTRAST, 08/20/2017. . TECHNIQUE: Multiple contiguous axial images were obtained through the abdomen and pelvis following b olus infusion of 94 ml Omnipaque 350 (iohexol) nonionic water-soluble contrast as a single exam dos e. No oral contrast ingested. Using automated exposure control and adjustment of the mA and/or kV ac cording to patient size, the radiation dose was kept as low as reasonably achievable to obtain optima l diagnostic quality images. FINDINGS: Severe wall thickening and inflammatory changes with associated luminal narrowing are seen of the ter lisandro ileum, roughly 7 cm of involvement. There is associated distention of air and fluid-filled mid and distal ileum. Similar findings were seen previously. The stomach is not distended. CT appearance of the colon within normal limits. The appendix is within normal limits. Trace ascites. No free air s een. No portal venous gas. The liver, spleen, pancreas, adrenal glands and kidneys are normal. Visualized lung bases are clear. No acute bony abnormalities are demonstrated. 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 CONCLUSION: Persistent versus recurrent severe Crohn's involvement of the terminal ileum and with ass ociated luminal narrowing and bowel obstruction. Small ascites. No evidence of perforation. Electronically signed by: Ronald Mota MD 01/14/2018 2:24 PM EDT
[2018-01-14 14:47] VITALS: BP 112/62; PULSE 56; RESP 17; O2SAT 98
[2018-01-14] MEDS ORDERED: MORPHINE SULFATE 4 MG/ML INJ IV PUSH PRN (16:30)
[2018-01-14] MEDS ORDERED: ACETAMINOPHEN 325 MG TAB PO PRN (16:30)
[2018-01-14] MEDS ORDERED: NALOXONE HCL 0.4 MG/ML AMP IV PUSH PRN (16:30)
[2018-01-14] MEDS: SODIUM CHLOR 0.9% 1000 ML INJ 1,000 ML IV SCH (16:53)
[2018-01-14] MEDS: MORPHINE SULFATE 4 MG/ML INJ IV PUSH PRN ×2 (16:53→19:50)
[2018-01-14] MEDS: ENOXAPARIN SODIUM 40 MG/0.4 ML SYRINGE SQ SCH (17:00)
[2018-01-14] MEDS: methylPREDNISolone SOD SUCC 125 MG/2 ML VIAL IV PUSH SCH (19:49)
[2018-01-14] MEDS: SODIUM CHLORIDE 0.9% FLUSH 10 ML FLUSH IV FLUSH SCH (19:52)
[2018-01-14 20:00] VITALS: BP 119/73; PULSE 56; RESP 16; TEMP 98; O2SAT 96
--- NOTE | 2018-01-14 23:02 | HHI.HP ---
HPI [facility] Hospitalists Primary Care Physician Shelby Barajas MD (Vipin) Admission Diagnosis Crohn's exacerbation, possible SBO. Diagnoses: Chief Complaint: Abdominal pain Travel History International Travel<30 Days: No Contact w/Intl Traveler <30 Da: No Traveled to Known Affected Are: No History of Present Illness This is a 37-year-old male with past medical history significant for Crohn's disease presents to [facility] complaining of abdominal pain. The patient states that he woke up this morning around 5 AM complaining of diffuse abdominal pain, described as constant, aching associated with abdominal distention, nausea but denies vomiting. The patient also denies any diarrhea.. Patient denies fevers or chills. Past Family Social History Past Medical History Crohn's disease Past Surgical History Bilateral knee ACL repair. Reported Medications Reported Meds & Active Scripts Active Zofran Odt (Ondansetron Odt) 4 Mg Tab 4 Mg SL Q6HR PRN Prednisone 20 Mg Tab 60 Mg PO DAILY 5 Days Bentyl (Dicyclomine HCl) 10 Mg Cap 10 Mg PO TID PRN Vicodin (Hydrocodone-Acetaminophen) 5-300 Mg Tab 1 Tab PO Q4H PRN Reported Prednisone 10 Mg Tab 10 Mg PO DAILY Allergies: Coded Allergies: No Known Allergies (Verified Adverse Reaction, Unknown, 01/14/18) Active Ordered Medications Current Medications Medications (Trade) Dose Ordered Sig/Arnaud Route Start Time Stop Time Status Last Admin Sodium Chloride 1,000 ml @ 100 mls/hr Q10H IV 01/14/18 17:00 01/14/18 16:53 (NS Flush) 2 ml UNSCH PRN IV FLUSH 01/14/18 16:30 (NS Flush) 2 ml BID IV FLUSH 01/14/18 21:00 01/14/18 19:52 (Tylenol) 650 mg Q4H PRN PO 01/14/18 16:30 (Lovenox Inj) 40 mg Q24H SQ 01/14/18 17:00 (Narcan Inj) 0.4 mg UNSCH PRN IV PUSH 01/14/18 16:30 (Morphine Inj) 2 mg Q3H PRN IV PUSH 01/14/18 16:30 (Morphine Inj) 4 mg Q3H PRN IV PUSH 01/14/18 16:30 01/14/18 19:50 (SoluMEDROL INJ) 60 mg Q12HR IV PUSH 01/14/18 21:00 01/14/18 19:49 Family History Denies family history of Crohn's disease. Social History The patient denies smoking, rarely drinks alcohol. The patient smokes medical marijuana. Physical Exam Vital Signs Vital Signs Date Time Temp Pulse Resp B/P (MAP) Pulse Ox O2 Delivery O2 Flow Rate FiO2 01/14/18 20:00 98.0 56 16 119/73 (88) 96 01/14/18 18:06 16 01/14/18 17:49 01/14/18 14:47 56 17 112/62 (79) 98 Room Air 01/14/18 08:25 98.6 55 16 127/82 (97) 99 Physical Exam GENERAL: This is a well-nourished, well-developed patient, in no apparent distress. SKIN: No rashes, ecchymoses or lesions. Cool and dry. HEAD: Atraumatic. Normocephalic. No temporal or scalp tenderness. EYES: Pupils equal round and reactive. Extraocular motions intact. No scleral icterus. No injection or drainage. ENT: Nose without bleeding, purulent drainage or septal hematoma. Throat without erythema, tonsillar hypertrophy or exudate. Uvula midline. Airway patent. NECK: Trachea midline. No JVD or lymphadenopathy. Supple, nontender, no meningeal signs. CARDIOVASCULAR: Regular rate and rhythm without murmurs, gallops, or rubs. RESPIRATORY: Clear to auscultation. Breath sounds equal bilaterally. No wheezes , rales, or rhonchi. GASTROINTESTINAL: Abdomen soft, diffusely tender to palpation, mildly distended. No hepato-splenomegaly, or palpable masses. Voluntary guarding. MUSCULOSKELETAL: Extremities without clubbing, cyanosis, or edema. No joint tenderness, effusion, or edema noted. No calf tenderness. Negative Homans sign bilaterally. NEUROLOGICAL: Awake and alert. Cranial nerves II through XII intact. Motor and sensory grossly within normal limits. Five out of 5 muscle strength in all muscle groups. Normal speech. Laboratory Laboratory Tests Test 01/14/18 09:15 White Blood Count 7.3 Red Blood Count 4.54 Hemoglobin 13.7 Hematocrit 39.6 Mean Corpuscular Volume 87.4 Mean Corpuscular Hemoglobin 30.3 Mean Corpuscular Hemoglobin Concent 34.6 Red Cell Distribution Width 13.3 Platelet Count 221 Mean Platelet Volume 8.8 Neutrophils (%) (Auto) 71.9 Lymphocytes (%) (Auto) 18.2 Monocytes (%) (Auto) 8.4 Eosinophils (%) (Auto) 1.3 Basophils (%) (Auto) 0.2 Neutrophils # (Auto) 5.2 Lymphocytes # (Auto) 1.3 Monocytes # (Auto) 0.6 Eosinophils # (Auto) 0.1 Basophils # (Auto) 0.0 CBC Comment DIFF FINAL Differential Comment Blood Urea Nitrogen 13 Creatinine 1.12 Random Glucose 93 Total Protein 6.9 Albumin 3.3 Calcium Level 8.6 Alkaline Phosphatase 57 Aspartate Amino Transf (AST/SGOT) 23 Alanine Aminotransferase (ALT/SGPT) 26 Total Bilirubin 0.5 Sodium Level 141 Potassium Level 4.5 Chloride Level 107 Carbon Dioxide Level 26.4 Anion Gap 8 Estimat Glomerular Filtration Rate 75 Lipase 96 Result Diagram: 01/14/18 0915 01/14/18 0915 Imaging Last Impressions Abdomen/Pelvis CT 01/14/18 0000 Signed Impressions: CONCLUSION: Persistent versus recurrent severe Crohn's involvement of the termi nal ileum and with associated luminal narrowing and bowel obstruction. Small as cites. No evidence of perforation. Reviewed by tx Caprini VTE Risk Assessment Caprini VTE Risk Assessment: Mod/High Risk (score >= 2) Caprini Risk Assessment Model Point Value = 1 Point Value = 2 Point Value = 3 Point Value = 5 Age 41-60 Minor surgery BMI > 25 kg/m2 Swollen legs Varicose veins or History of unexplained or recurrent spontaneous Oral contraceptives or hormone replacement Sepsis (< 1 month) Serious lung disease, including pneumonia (< 1 month) Abnormal pulmonary function Acute myocardial infarction Congestive heart failure (< 1 month) History of inflammatory bowel disease Medical patient at bed rest Age 61-74 Arthroscopic surgery Major open surgery (> 45 min) Laparoscopic surgery (> 45 min) Malignancy Confined to bed (> 72 hours) Immobilizing plaster cast Central venous access Age >= 75 History of VTE Family history of VTE Factor V Leiden Prothrombin [id number] Lupus anticoagulant Anticardiolipin antibodies Elevated serum homocysteine Heparin-induced thrombocytopenia Other congenital or acquired thrombophilia Stroke (< 1 month) Elective arthroplasty Hip, pelvis, or leg fracture Acute spinal cord injury (< 1 month) Prophylaxis Regimen Total Risk Factor Score Risk Level Prophylaxis Regimen 0-1 Low Early ambulation 2 Moderate Order ONE of the following: *Sequential Compression Device (SCD) *Heparin 5000 units SQ BID 3-4 Higher Order ONE of the following medications: *Heparin 5000 units SQ TID *Enoxaparin/Lovenox 40 mg SQ daily (WT < 150 kg, CrCl > 30 mL/min) *Enoxaparin/Lovenox 30 mg SQ daily (WT < 150 kg, CrCl > 10-29 mL/min) *Enoxaparin/Lovenox 30 mg SQ BID (WT < 150 kg, CrCl > 30 mL/min) AND/OR *Sequential Compression Device (SCD) 5 or more Highest Order ONE of the following medications: *Heparin 5000 units SQ TID (Preferred with Epidurals) *Enoxaparin/Lovenox 40 mg SQ daily (WT < 150 kg, CrCl > 30 mL/min) *Enoxaparin/Lovenox 30 mg SQ daily (WT < 150 kg, CrCl > 10-29 mL/min) *Enoxaparin/Lovenox 30 mg SQ BID (WT < 150 kg, CrCl > 30 mL/min) AND *Sequential Compression Device (SCD) Assessment and Plan Problem List: (1) Exacerbation of Crohn's disease ICD Code: K50.90 - Crohn's disease, unspecified, without complications (2) Abdominal pain ICD Code: R10.9 - Unspecified abdominal pain Status: Acute Assessment and Plan Admit the patient to the medical floor Clear liquid diet IV fluids IV steroids GI consultation Morphine as needed for pain control. Lovenox subcu for DVT prophylaxis. Code Status Full code Discussed Condition With ED physician, patient. Physician Certification 2 Midnight Certification Type: Admission for Inpatient Services Order for Inpatient Services The services are ordered in accordance with Medicare regulations or non- Medicare payer requirements, as applicable. In the case of services not specified as inpatient-only, they are appropriately provided as inpatient services in accordance with the 2-midnight benchmark. Estimated LOS (days): 2 days is the estimated time the patient will need to remain in the hospital, assuming treatment plan goals are met and no additional complications. Post-Hospital Plan: Home Priyank Harvey MD Jan 14, 2018 23:02
[2018-01-15] VITALS: BP 124/65; PULSE 59; RESP 16; TEMP 97.9; O2SAT 98
[2018-01-15] MEDS: SODIUM CHLOR 0.9% 1000 ML INJ 1,000 ML IV SCH ×3 (02:19→23:00)
[2018-01-15] MEDS: MORPHINE SULFATE 4 MG/ML INJ IV PUSH PRN (06:14)
[2018-01-15 08:00] VITALS: BP 134/64; PULSE 60; RESP 16; TEMP 98.2; O2SAT 97
[2018-01-15] MEDS: methylPREDNISolone SOD SUCC 125 MG/2 ML VIAL IV PUSH SCH ×2 (09:17→20:42)
[2018-01-15] MEDS: SODIUM CHLORIDE 0.9% FLUSH 10 ML FLUSH IV FLUSH SCH ×2 (09:17→20:42)
[2018-01-15 11:43] LABS: BASOPHIL % 0.2 % (0.0-2.0); EOSINOPHIL % 0.3 % (0.0-4.0); HEMATOCRIT 39.7 % (39.0-51.0); HEMOGLOBIN 13.3 GM/DL (13.0-17.0); LYMPH % 17.8 % (9.0-44.0); LYMPHOCYTE # 0.8 TH/MM3 (1.0-4.8); MEAN CELL VOLUME 88.1 FL (80.0-100.0); MEAN CORPUSCULAR HEMOGLOBIN 29.6 PG (27.0-34.0); MEAN CORPUSCULAR HGB CONC 33.6 % (32.0-36.0); MEAN PLATELET VOLUME 8.8 FL (7.0-11.0); MONOCYTE # 0.5 TH/MM3 (0-0.9); NEUT % 69.7 % (16.0-70.0); PLATELET COUNT 225 TH/MM3 (150-450); RED CELL DISTRIBUTION WIDTH 12.8 % (11.6-17.2); WHITE BLOOD COUNT 4.3 TH/MM3 (4.0-11.0)
[2018-01-15 12:00] VITALS: BP 133/70; PULSE 57; RESP 18; TEMP 97.8; O2SAT 97
[2018-01-15 12:16] LABS: ALT (GPT) 21 U/L (12-78); AST (GOT) 11 U/L (15-37); BICARBONATE 26.3 MEQ/L (21.0-32.0); BLOOD UREA NITROGEN 13 MG/DL (7-18); CALCIUM 8.3 MG/DL (8.5-10.1); CHLORIDE 105 MEQ/L (98-107); CREATININE 1.02 MG/DL (0.60-1.30); GLOMERULAR FILTRATION RATE 83 ML/MIN (>89); GLUCOSE,RANDOM 108 MG/DL (74-106); SODIUM (NA) 141 MEQ/L (136-145)
[2018-01-15 12:19] LABS: ALKALINE PHOSPHATASE 52 U/L (45-117); TOTAL BILIRUBIN ADULT 0.8 MG/DL (0.2-1.0); TOTAL PROTEIN 6.9 GM/DL (6.4-8.2)
--- NOTE | 2018-01-15 13:21 | PD.CONS ---
HPI History of Present Illness This is a 37 year old M with PMH significant for Crohns, he does not want to be on alf medication for the Crohns and has been trying to manage flare ups by avoiding sugar and dairy in his diet. Pt is currently on 10mg of a Prednisone taper that was began in August. He presented to the ER yesterday with complaints of severe abdominal pain that woke him up out of his sleep at 5 am in the morning. Reports pain was all over his abdomen. Associated nausea, denies emesis. Had a BM yesterday morning, states this was normal, has not had a BM since. Does report passing flatus today. Pt has not had any liquids since admission, he is waiting for his to bring them from home because he states the hospital food does not have any dairy free, sugar free options. Last EGD and colonoscopy in April 2017 --> Mild gastritis in the gastric antrum, duodenal inflammation in the 2nd part of the duodenum. Short stricture in the terminal ileum, using a TTS-balloon the stricture was dilated up to 13 mm, following dilatation small amount of heme. Pathology (duodenal bulb) duodenal mucosa with focal edema, villous architecture is normal (gastric antrum) antral mucosa with mild active chronic gastritis (terminal ileum) acutely ulcerated small bowel mucosa with some distortion of crypt epithelium, suggestive of active chronic inflammatory bowel disease, no evidence of dysplasia. (Lisa Garza) PFSH Past Medical History Crohn's disease Past Surgical History Bilateral knee ACL repair Colonoscopy EGD (Lisa Garza) Coded Allergies: No Known Allergies (Verified Adverse Reaction, Unknown, 01/14/18) Family History Denies family history of Crohn's disease. Social History The patient denies smoking, rarely drinks alcohol. The patient smokes medical marijuana. (Lisa Garza) Review of Systems Gastrointestinal: COMPLAINS OF: Abdominal pain, Nausea, DENIES: Black stools, Bloody stools, Constipation, Diarrhea, Vomiting, Difficulty Swallowing, Anorexia , Odynophagia, Swelling of Abdomen, Heartburn, Hematemesis (Lisa Garza ) GI Exam Vitals I&O Vital Signs Date Time Temp Pulse Resp B/P (MAP) Pulse Ox O2 Delivery O2 Flow Rate FiO2 01/15/18 12:00 97.8 57 18 133/70 (91) 97 01/15/18 08:00 98.2 60 16 134/64 (87) 97 01/15/18 00:00 97.9 59 16 124/65 (84) 98 01/14/18 20:00 98.0 56 16 119/73 (88) 96 01/14/18 18:06 16 01/14/18 17:49 01/14/18 14:47 56 17 112/62 (79) 98 Room Air I/O 01/14/18 01/14/18 01/14/18 01/15/18 01/15/18 01/15/18 07:00 15:00 23:00 07:00 15:00 23:00 Intake Total 120 ml 1000 ml Balance 120 ml 1000 ml Intake Oral 120 ml IV Total 1000 ml # Voids 3 Imaging Last Impressions Abdomen/Pelvis CT 01/14/18 0000 Signed Impressions: CONCLUSION: Persistent versus recurrent severe Crohn's involvement of the termi nal ileum and with associated luminal narrowing and bowel obstruction. Small as cites. No evidence of perforation. Laboratory Test 01/15/18 10:53 White Blood Count 4.3 TH/MM3 Red Blood Count 4.50 MIL/MM3 Hemoglobin 13.3 GM/DL Hematocrit 39.7 % Mean Corpuscular Volume 88.1 FL Mean Corpuscular Hemoglobin 29.6 PG Mean Corpuscular Hemoglobin Concent 33.6 % Red Cell Distribution Width 12.8 % Platelet Count 225 TH/MM3 Mean Platelet Volume 8.8 FL Neutrophils (%) (Auto) 69.7 % Lymphocytes (%) (Auto) 17.8 % Monocytes (%) (Auto) 12.0 % Eosinophils (%) (Auto) 0.3 % Basophils (%) (Auto) 0.2 % Neutrophils # (Auto) 3.0 TH/MM3 Lymphocytes # (Auto) 0.8 TH/MM3 Monocytes # (Auto) 0.5 TH/MM3 Eosinophils # (Auto) 0.0 TH/MM3 Basophils # (Auto) 0.0 TH/MM3 CBC Comment DIFF FINAL Differential Comment Blood Urea Nitrogen 13 MG/DL Creatinine 1.02 MG/DL Random Glucose 108 MG/DL Total Protein 6.9 GM/DL Albumin 3.0 GM/DL Calcium Level 8.3 MG/DL Alkaline Phosphatase 52 U/L Aspartate Amino Transf (AST/SGOT) 11 U/L Alanine Aminotransferase (ALT/SGPT) 21 U/L Total Bilirubin 0.8 MG/DL Sodium Level 141 MEQ/L Potassium Level 3.9 MEQ/L Chloride Level 105 MEQ/L Carbon Dioxide Level 26.3 MEQ/L Anion Gap 10 MEQ/L Estimat Glomerular Filtration Rate 83 ML/MIN Physical Examination HEENT: Normocephalic; atraumatic CHEST: Even/unlabored CARDIAC: RRR ABDOMEN: Soft, nondistended,mild diffuse tenderness, bowel sounds active EXTREMITIES: No clubbing, cyanosis, or edema. SKIN: Normal; no rash; no jaundice. 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 (Lisa Garza) Assessment and Plan Plan Assessment: - Crohns disease- Chooses to manage through dietary modifications by avoiding dairy and sugar products- has been advised to start biologics in the past, but reports is not interested. Also previously on Asacol but not taking this currently. He was on 10mg of a Prednisone taper that he began in August. Complaining of abdominal pain that began suddenly at 5 am yesterday, woke him up out of his sleep, initially pain all over abdomen, has now improved some. Associated nausea, denies emesis. Reports last BM was yesterday morning and normal, passing flatus today. CT abdomen and pelvis W IV contrast --> Persistent versus recurrent severe Crohn's involvement of the terminal ileum and with associated luminal narrowing and bowel obstruction. Small ascites. No evidence of perforation. Last EGD and colonoscopy in April 2017 --> Mild gastritis in the gastric antrum, duodenal inflammation in the 2nd part of the duodenum. Short stricture in the terminal ileum, using a TTS-balloon the stricture was dilated up to 13 mm, following dilatation small amount of heme. Pathology (duodenal bulb) duodenal mucosa with focal edema, villous architecture is normal (gastric antrum) antral mucosa with mild active chronic gastritis ( terminal ileum) acutely ulcerated small bowel mucosa with some distortion of crypt epithelium , suggestive of active chronic inflammatory bowel disease, no evidence of dysplasia. Office records reviewed- pt follow up with Dr. Maxwell outpatient- he was referred to tertiary center for possible stricturotomy Plan: Continue IV Solumedrol Small bowel follow through [place] for clear liquids Monitor BMs Further recommendations based on findings of above and clinical course Pt has been seen and examined by myself and Dr. Aparicio and this note is written on his behalf (Lisa Garza) Physician Comments Seen and examined, plan as above. Known to us from previous visits. 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 Will follow up with you. (Joan Aparicio MD) Lisa Garza Jan 15, 2018 13:21 Joan Aparicio MD Jan 15, 2018 15:46
[2018-01-15] MEDS ORDERED: DIATRIZOATE MEGLUM/DIATRIZOATE SOD 120 ML BTL (for RAD DIAG) PO ONE (14:35)
--- NOTE | 2018-01-15 15:36 | RADRPT ---
EXAM DATE: 01/15/2018 3:25 PM EDT AGE/SEX: 37 years / Male INDICATIONS: Obstruction. CLINICAL DATA: This is the patient's subsequent encounter. Patient reports that signs and symptoms h ave been present for 3 days and indicates a pain score of 0/10. MEDICAL/SURGICAL HISTORY: . Crohn's disease. None. COMPARISON: [facility] [place]ELVIS W CONTRAST, 01/14/2018. . FLUORO TIME: 2.8 IMAGE COUNT: 12 CONTRAST: Gastrografin FINDINGS: Preliminary film is unremarkable. The stomach is grossly unremarkable. Examination of the small bowel demonstrates multiple dilated small bowel loops with a transition in t he region of the terminal ileum. Initially, the TI was very difficult to identify. On later images, t here appears to be a thin line of contrast in the expected location of the terminal ileum concordant with the CT findings of a markedly thickened TI. Contrast is identified in the proximal colon. CONCLUSION: 1. Marked luminal narrowing to the terminal ileum. Findings are concordant with the CT demonstrating significant mural thickening in the TI characteristic of Crohn's disease. 2. Partial small bowel obstruction with the transition at the level of the aforementioned abnormal T I Electronically signed by: Ubaldo Reed MD 01/15/2018 3:35 PM EDT
--- NOTE | 2018-01-15 15:37 | HHI.PR ---
Subjective Remarks Abdominal pain improving. The patient denies nausea or vomiting. Denies fevers or chills. Denies diarrhea. Objective Vitals Vital Signs Date Time Temp Pulse Resp B/P (MAP) Pulse Ox O2 Delivery O2 Flow Rate FiO2 01/15/18 12:00 97.8 57 18 133/70 (91) 97 01/15/18 08:00 98.2 60 16 134/64 (87) 97 01/15/18 00:00 97.9 59 16 124/65 (84) 98 01/14/18 20:00 98.0 56 16 119/73 (88) 96 01/14/18 18:06 16 01/14/18 17:49 I/O 01/14/18 01/14/18 01/14/18 01/15/18 01/15/18 01/15/18 06:59 14:59 22:59 06:59 14:59 22:59 Intake Total 120 ml 1000 ml Balance 120 ml 1000 ml Intake Oral 120 ml IV Total 1000 ml # Voids 3 Result Diagram: 01/15/18 1053 01/15/18 1053 Imaging Last 72 hours Impressions Abdomen/Pelvis CT 01/14/18 0000 Signed Impressions: CONCLUSION: Persistent versus recurrent severe Crohn's involvement of the termi nal ileum and with associated luminal narrowing and bowel obstruction. Small as cites. No evidence of perforation. Objective Remarks AAOx3, NAD Clear lungs BL S1S2 + RRR abdomen mildly distended, mildly tender to palpation of epigastric region. No edema in lower extremities. A/P Problem List: (1) Exacerbation of Crohn's disease ICD Code: K50.90 - Crohn's disease, unspecified, without complications (2) Abdominal pain ICD Code: R10.9 - Unspecified abdominal pain Status: Acute Assessment and Plan Appreciate GI consultation and recommendations. Continue IV Solu-Medrol Continue IV fluids. Small bowel follow-through. Monitor BMP. Pain control with IV morphine. Lovenox for DVT prophylaxis. Discharge Planning Brenda to monitor and the medical floor. Small bowel follow-through pending. Pending GI clearance. Problem Qualifiers (1) Exacerbation of Crohn's disease: Qualified Codes: K50.90 - Crohn's disease, unspecified, without complications (2) Abdominal pain: Qualified Codes: R10.84 - Generalized abdominal pain Priyank Harvey MD Jan 15, 2018 15:37
[2018-01-15 16:00] VITALS: BP_SYST 128; BP_SYST 144; BP_DIAS 84; BP_DIAS 97; PULSE 59; PULSE 78; RESP 15; RESP 17; TEMP 97.7; TEMP 98; O2SAT 93; O2SAT 99
[2018-01-15] MEDS: ENOXAPARIN SODIUM 40 MG/0.4 ML SYRINGE SQ SCH (17:00)
[2018-01-15 20:00] VITALS: BP 126/60; PULSE 78; RESP 20; TEMP 98.2; O2SAT 95
[2018-01-16] VITALS: BP 100/58; PULSE 52; RESP 18; TEMP 98.1; O2SAT 95
[2018-01-16 07:35] VITALS: BP 114/56; PULSE 74; RESP 16; TEMP 97.8; O2SAT 96
[2018-01-16] MEDS: SODIUM CHLOR 0.9% 1000 ML INJ 1,000 ML IV SCH (09:14)
[2018-01-16] MEDS: methylPREDNISolone SOD SUCC 125 MG/2 ML VIAL IV PUSH SCH (09:15)
[2018-01-16] MEDS: SODIUM CHLORIDE 0.9% FLUSH 10 ML FLUSH IV FLUSH SCH (09:16)
--- NOTE | 2018-01-16 11:31 | HHI.GIFU ---
Subjective Remarks Pt sitting up on side of bed at bedside Reports multiple BMs since SBFT Denies nausea, vomiting, abdominal pain He is asking to have his diet advanced (Lisa Garza) Objective Vitals I&O Vital Signs Date Time Temp Pulse Resp B/P (MAP) Pulse Ox O2 Delivery O2 Flow Rate FiO2 01/16/18 07:35 97.8 74 16 114/56 (75) 96 01/16/18 00:00 98.1 52 18 100/58 (72) 95 01/15/18 20:00 98.2 78 20 126/60 (82) 95 01/15/18 16:00 98.0 59 17 128/84 (99) 93 01/15/18 12:00 97.8 57 18 133/70 (91) 97 I/O 01/15/18 01/15/18 01/15/18 01/16/18 01/16/18 01/16/18 07:00 15:00 23:00 07:00 15:00 23:00 Intake Total 1000 ml 1000 ml 1500 ml 360 ml Balance 1000 ml 1000 ml 1500 ml 360 ml Intake Oral 500 ml 360 ml IV Total 1000 ml 1000 ml 1000 ml # Voids 3 5 2 # Bowel Movements 1 0 Imaging Last Impressions Small Bowel X-Ray 01/15/18 0000 Signed Impressions: CONCLUSION: 1. Marked luminal narrowing to the terminal ileum. Findings are concordant wit h the CT demonstrating significant mural thickening in the TI characteristic of Crohn's disease. 2. Partial small bowel obstruction with the transition at the level of the afo rementioned abnormal TI Abdomen/Pelvis CT 01/14/18 0000 Signed Impressions: CONCLUSION: Persistent versus recurrent severe Crohn's involvement of the termi nal ileum and with associated luminal narrowing and bowel obstruction. Small as cites. No evidence of perforation. Physical Exam HEENT: Normocephalic; atraumatic CHEST: Even/unlabored CARDIAC: RRR ABDOMEN: Soft, nondistended, nontender; bowel sounds active EXTREMITIES: No clubbing, cyanosis, or edema. SKIN: Normal; no rash; no jaundice. SOURCING [employer]: Alert and oriented times three. (Lisa Garza) Assessment and Plan Plan Assessment: - Crohns disease- Chooses to manage through dietary modifications by avoiding dairy and sugar products- has been advised to start biologics in the past, but reports is not interested. Also previously on Asacol but not taking this currently. He was on 10mg of a Prednisone taper that he began in August. Complaining of abdominal pain that began suddenly at 5 am yesterday, woke him up out of his sleep, initially pain all over abdomen, has now improved some. Associated nausea, denies emesis. Reports last BM was yesterday morning and normal, passing flatus today. CT abdomen and pelvis W IV contrast --> Persistent versus recurrent severe Crohn's involvement of the terminal ileum and with associated luminal narrowing and bowel obstruction. Small ascites. No evidence of perforation. Last EGD and colonoscopy in April 2017 --> Mild gastritis in the gastric antrum, duodenal inflammation in the 2nd part of the duodenum. Short stricture in the terminal ileum, using a TTS-balloon the stricture was dilated up to 13 mm, following dilatation small amount of heme. Pathology (duodenal bulb) duodenal mucosa with focal edema, villous architecture is normal (gastric antrum) antral mucosa with mild active chronic gastritis ( terminal ileum) acutely ulcerated small bowel mucosa with some distortion of crypt epithelium , suggestive of active chronic inflammatory bowel disease, no evidence of dysplasia. Office records reviewed- pt follow up with Dr. Maxwell outpatient- he was referred to tertiary center for possible stricturotomy (01/16) Pt reports multiple BMs since SBFT. Denies nausea, vomiting, abdominal pain. SBFT --> Marked luminal narrowing to the terminal ileum. Findings are concordant with the CT demonstrating significant mural thickening in the TI characteristic of Crohn's disease. Partial small bowel obstruction with the transition at the level of the aforementioned abnormal TI Plan: Continue IV Solumedrol Advance to soft foods Will contact office to see about status of tertiary care referral for possible stricturotomy Further recommendations based on clinical course Pt has been seen and examined by myself and Dr. Aparicio and this note is written on his behalf (Lisa Garza) Physician Comments Seen with anthony Gonzalez as above. Tolerating diet well. Feeling better overall. Stable from GI point of view for DC. (Joan Aparicio MD) Lisa Garza Jan 16, 2018 11:31 Joan Aparicio MD Jan 16, 2018 14:24
[2018-01-16 12:00] VITALS: BP 147/68; PULSE 61; RESP 16; TEMP 97.7; O2SAT 99
[2018-01-16] MEDS ORDERED: ZOFR4TAB3 SL (12:38)
--- NOTE | 2018-01-16 12:39 | HHI.DCPOC ---
Discharge Care Plan Diagnosis: (1) Crohn disease (2) Abdominal pain (3) Exacerbation of Crohn's disease Goals to Promote Your Health * To prevent worsening of your condition and complications * To maintain your health at the optimal level Directions to Meet Your Goals Take your medications as prescribed Follow your dietary instruction Follow activity as directed Keep your appointments as scheduled Take your immunizations and boosters as scheduled If your symptoms worsen call your PCP, if no PCP go to Urgent Care Center or Emergency Room Smoking is Dangerous to Your Health. Avoid second hand smoke Call the 24-hour hour crisis hotline for domestic abuse at Priyank Harvey MD Jan 16, 2018 12:39
[2018-01-16] MEDS ORDERED: PRED10PA PO (12:40)
--- NOTE | 2018-01-16 12:41 | HHI.DS ---
Discharge Summary Admission Date Jan 14, 2018 at 16:06 Discharge Date: Jan 16, 2018 Admitting Diagnosis Crohn's exacerbation, possible SBO. (1) Exacerbation of Crohn's disease ICD Code: K50.90 - Crohn's disease, unspecified, without complications (2) Abdominal pain ICD Code: R10.9 - Unspecified abdominal pain Status: Acute Brief History - From Admission This is a 37-year-old male with past medical history significant for Crohn's disease presents to [facility] complaining of abdominal pain. The patient states that he woke up this morning around 5 AM complaining of diffuse abdominal pain, described as constant, aching associated with abdominal distention, nausea but denies vomiting. The patient also denies any diarrhea.. Patient denies fevers or chills. CBC/BMP: 01/15/18 1053 01/15/18 1053 Significant Findings Laboratory Tests Test 01/14/18 09:15 01/15/18 10:53 Neutrophils (%) (Auto) 71.9 % (16.0-70.0) Monocytes (%) (Auto) 8.4 % (0.0-8.0) 12.0 % (0.0-8.0) Albumin 3.3 GM/DL (3.4-5.0) 3.0 GM/DL (3.4-5.0) Estimat Glomerular Filtration Rate 75 ML/MIN (>89) 83 ML/MIN (>89) Lymphocytes # (Auto) 0.8 TH/MM3 (1.0-4.8) Random Glucose 108 MG/DL (74-106) Calcium Level 8.3 MG/DL (8.5-10.1) Aspartate Amino Transf (AST/SGOT) 11 U/L (15-37) PE at Discharge AAOx3, NAD Clear lungs BL S1S2 + RRR abdomen mildly distended, mildly tender to palpation of epigastric region. No edema in lower extremities. Pt Condition on Discharge: Stable Discharge Disposition: Discharge Home Discharge Instructions DIET: Follow Instructions for: As Tolerated, No Restrictions Activities you can perform: Regular-No Restrictions Priyank Harvey MD Jan 16, 2018 12:41
[2018-01-16] MEDS: ENOXAPARIN SODIUM 40 MG/0.4 ML SYRINGE SQ SCH (16:18)
== END 2018-01-16 17:00 | disposition home or self-care (01) | DRG 386 ==
LOC: NEPC 08:18 → NEDH 16:06 → N07B 17:53
PROVIDERS: ADMIT Hospitalist; ATTEND Hospitalist
DX: K50.912 Crohn's disease, unspecified, with intestinal obstruction (principal); K56.600 Partial intestinal obstruction, unspecified as to cause; F12.90 Cannabis use, unspecified, uncomplicated; K29.50 Unspecified chronic gastritis without bleeding
CPT/HCPCS: 74177; 74250; 80053; 83690; 85025; 96374; J1885; J2270; J2930; J7030; J7512; Q9963; Q9967